=== PATIENT | male | born 1985 | race Caucasian/White ===

== ENCOUNTER 2017-06-19 22:51 | Emergency (ER) | payer MEDICAID ==
[~2017-06-19] VITALS: Ht 165.1 cm; Wt 71.0 kg
[~2017-06-19 22:51] MED LIST: CARBATROL PO; CHOL100044 PO; MULT-1116 PO; PHEN60TA PO; PHENOBARBITAL PO; SENN1TAB7 PO; THIORIDAZINE PO
[2017-06-19] MEDS ORDERED: ONDANSETRON HCL 4MG/2ML VIAL IV STA (23:17)
[2017-06-19] MEDS ORDERED: SODIUM CHLORIDE 0.9% 1,000 ML IV ONE (23:17)
[2017-06-19] MEDS ORDERED: LORAZEPAM 2MG/ML CPJ IV ONE (23:30)
[2017-06-19 23:44] LABS: BASOPHILS % 0.2 % (0.0-2.0); EOSINOPHILS % 3.5 % (0.0-5.0); HEMATOCRIT. 40.2 % (42.0-52.0); HEMOGLOBIN. 13.9 g/dL (14.0-18.0); LYMPHOCYTES % 34.5 % (20.0-50.0); MEAN CORPUSCULAR HEMOGLOBIN 31.4 pg (28.0-32.0); MEAN CORPUSCULAR VOLUME 90.6 fL (80.0-94.0); MEAN PLATELET VOLUME 7.9 fl (7.4-10.4); MONOCYTES % 4.6 % (2.0-8.0); NEUTROPHILS % 57.2 % (40.0-76.0); PLATELET 166 x1000/uL (130-400); RED BLOOD CELL COUNT 4.43 mill/uL (4.7-6.1); RED CELL DISTRIBUTION WIDTH 12.7 % (11.6-14.6)
[2017-06-19 23:47] LABS: CHLORIDE 106 mEq/L (98-107)
[2017-06-19 23:56] LABS: PHENOBARBITAL 22.4 ug/mL (15.0-40.0)
[2017-06-20] MEDS ORDERED: PHENYTOIN SODIUM 500 MG in SODIUM CHLORIDE 0.9% 50 ML IV NR (01:30)
[2017-06-20 05:06] VITALS: BP 116/76
== END 2017-06-20 05:19 | disposition home or self-care (01) ==
LOC: ER 22:55
DX: R56.9 Unspecified convulsions (principal); F79 Unspecified intellectual disabilities
CPT/HCPCS: 36415; 80053; 80156; 80165; 80184; 80185; 85025; 96361; 96365; 96375; 99285; J1165; J2060; J2405; J7030; Z7610

== ENCOUNTER 2018-08-07 22:49 | Inpatient (IN) | payer MEDICAID ==
[~2018-08-07] VITALS: Ht 167.6 cm; Wt 65.8 kg
[~2018-08-07 22:49] MED LIST changes: -SENN1TAB7 PO; +SENN1TAB8 PO
[2018-08-08 00:32] LABS: CLARITY URINE CLEAR (CLEAR); COLOR URINE YELLOW (YELLOW); KETONES URINE TRACE (NEGATIVE); LEUKOCYTE ESTERASE URINE NEGATIVE (NEGATIVE); NITRITE URINE NEGATIVE (NEGATIVE); OCCULT BLOOD URINE NEGATIVE (NEGATIVE); PH URINE 5.5 (4.5-8.0); PROTEIN URINE NEGATIVE (NEGATIVE)
[2018-08-08 00:43] LABS: *COCAINE SCREEN URINE NEGATIVE (NEGATIVE); METHADONE URINE SCREEN NEGATIVE (NEGATIVE); OPIATES URINE SCREEN NEGATIVE (NEGATIVE)
[2018-08-08 00:44] LABS: *AMPHETAMINES SCREEN URINE NEGATIVE (NEGATIVE); *BARBITURATES SCREEN URINE PRESUMTIVE POSITIVE (NEGATIVE); *BENZODIAZEPINES SCREEN URINE NEGATIVE (NEGATIVE); CANNABINOID URINE SCREEN NEGATIVE (NEGATIVE); PHENCYCLIDINE URINE SCREEN NEGATIVE (NEGATIVE)
[2018-08-08 00:55] LABS: HEMATOCRIT. 33.7 % (42.0-52.0); HEMOGLOBIN. 11.5 g/dL (14.0-18.0); MEAN CORPUSCULAR HEMOGLOBIN 31.9 pg (28.0-32.0); MEAN CORPUSCULAR VOLUME 93.3 fL (80.0-94.0); MEAN PLATELET VOLUME 8.4 fl (7.4-10.4); PLATELET 135 x1000/uL (130-400); RED BLOOD CELL COUNT 3.61 mill/uL (4.7-6.1); RED CELL DISTRIBUTION WIDTH 14.5 % (11.6-14.6)
[2018-08-08 01:00] LABS: CHLORIDE 109 mEq/L (98-107)
[2018-08-08 01:04] LABS: ETHANOL BLOOD < 10 mg/dL
[2018-08-08 01:08] LABS: PHENOBARBITAL 19.8 ug/mL (15.0-40.0)
[2018-08-08 02:39] LABS: PLATELET ESTIMATE NORMAL
[2018-08-08] MEDS ORDERED: LORAZEPAM 2MG/ML CPJ IM ONE (04:15)
[2018-08-08] MEDS ORDERED: PHENOBARBITAL SODIUM 65MG/ML 1ML IV ONE (05:00)
[2018-08-08 09:42] VITALS: BP 103/52
[2018-08-08 09:45] VITALS: BP 103/52
[2018-08-08] MEDS ORDERED: LORAZEPAM 2MG/ML CPJ IV PRN (11:30)
[2018-08-08] MEDS ORDERED: ACETAMINOPHEN 325MG TABLET PO PRN (11:30)
[2018-08-08] MEDS ORDERED: ONDANSETRON HCL 4MG/2ML INJ IV PRN (11:30)
[2018-08-08] MEDS: MULTIVITAMINS,THER W-MINERALS TABLET PO SCH (11:45)
[2018-08-08] MEDS: CHOLECALCIFEROL (D3) 1000 UNIT TABLET PO SCH (11:45)
[2018-08-08] MEDS: SENNOSIDES/DOCUSATE SOD 8.6/50MG TABLET PO SCH (11:45)
[2018-08-08 12:00] VITALS: BP 93/49
[2018-08-08] MEDS: CARBAMAZEPINE 100MG TABLET CHEW PO SCH ×2 (13:00→18:36)
[2018-08-08] MEDS: DEXT 5%/0.45% NACL 1000ML 1,000 ML IV SCH (13:51)
[2018-08-08 16:00] VITALS: BP 93/52
[2018-08-08] MEDS: ENOXAPARIN 40MG/0.4ML SYR SUBCUT SCH (16:00)
[2018-08-08] MEDS: THIORIDAZINE 25 MG PO SCH ×2 (18:38→21:14)
[2018-08-08 20:00] VITALS: BP 100/48
[2018-08-08] MEDS ORDERED: PHENOBARBITAL 30 MG TABLET PO SCH (21:00)
[2018-08-09] VITALS: BP 100/42
[2018-08-09 04:00] VITALS: BP 99/47
[2018-08-09 08:00] VITALS: BP 102/84
[2018-08-09] MEDS ORDERED: PHENOBARBITAL 30 MG TABLET PO SCH (09:00)
[2018-08-09 09:18] LABS: BASOPHILS % 0.1 % (0.0-2.0); EOSINOPHILS % 1.6 % (0.0-5.0); HEMOGLOBIN. 11.2 g/dL (14.0-18.0); LYMPHOCYTES % 21.2 % (20.0-50.0); MEAN CORPUSCULAR HEMOGLOBIN 31.7 pg (28.0-32.0); MEAN CORPUSCULAR VOLUME 93.5 fL (80.0-94.0); MEAN PLATELET VOLUME 8.6 fl (7.4-10.4); MONOCYTES % 5.9 % (2.0-8.0); NEUTROPHILS % 71.2 % (40.0-76.0); PLATELET 124 x1000/uL (130-400); RED BLOOD CELL COUNT 3.53 mill/uL (4.7-6.1); RED CELL DISTRIBUTION WIDTH 14.5 % (11.6-14.6)
[2018-08-09 10:01] LABS: CHLORIDE 106 mEq/L (98-107)
[2018-08-09] MEDS: DEXT 5%/0.45% NACL 1000ML 1,000 ML IV SCH (10:32)
[2018-08-09] MEDS: CARBAMAZEPINE 100MG TABLET CHEW PO SCH (10:35)
[2018-08-09] MEDS: THIORIDAZINE 25 MG PO SCH ×3 (10:35→17:07)
[2018-08-09] MEDS: CHOLECALCIFEROL (D3) 1000 UNIT TABLET PO SCH (10:35)
[2018-08-09] MEDS: SENNOSIDES/DOCUSATE SOD 8.6/50MG TABLET PO SCH (10:35)
[2018-08-09] MEDS: MULTIVITAMINS,THER W-MINERALS TABLET PO SCH (10:38)
[2018-08-09 12:00] VITALS: BP 132/65
[2018-08-09] MEDS ORDERED: POTASSIUM CHLORIDE 20MEQ TABLET SR PO SCH (15:15)
[2018-08-09 16:00] VITALS: BP 105/60
[2018-08-09] MEDS: ENOXAPARIN 40MG/0.4ML SYR SUBCUT SCH (16:00)
[2018-08-09 16:34] VITALS: BP 105/60
[2018-08-09] MEDS ORDERED: CARBAMAZEPINE 100MG TABLET CHEW PO SCH (17:00)
== END 2018-08-09 19:12 | disposition home or self-care (01) | DRG 53 ==
LOC: ER 22:49 → 8WST 08-08 04:49 → ENRESERV 08-08 08:09
PROVIDERS: ADMIT Internal Medicine; ATTEND Internal Medicine
DX: G40.909 Epilepsy, unspecified, not intractable, without status epilepticus (principal); Q04.2 Holoprosencephaly; E44.0 Moderate protein-calorie malnutrition; E87.8 Other disorders of electrolyte and fluid balance, not elsewhere classified; G80.9 Cerebral palsy, unspecified; D64.9 Anemia, unspecified; F79 Unspecified intellectual disabilities; H54.7 Unspecified visual loss; Z91.14 Patient's other noncompliance with medication regimen; Z68.23 Body mass index [BMI] 23.0-23.9, adult; Z79.899 Other long term (current) drug therapy
CPT/HCPCS: 36415; 80048; 80184; 80305; 80320; 93970; 96374; 99285; J1650; J2060; J2560; G0480

== ENCOUNTER 2019-03-04 10:44 | Inpatient (IN) | payer MEDICAID ==
[~2019-03-04] VITALS: Ht 172.7 cm; Wt 60.8 kg
[~2019-03-04 10:44] MED LIST changes: +CARB100T49 PO; -CARBATROL PO; -CHOL100044 PO; +FOLI-43 PO; -MULT-1116 PO; +PHEN30TA42 PO; -PHENOBARBITAL PO; -SENN1TAB8 PO; +THIO25TA PO; -THIORIDAZINE PO
[2019-03-04] MEDS ORDERED: SODIUM CHLORIDE 0.9% 1,000 ML IV ONE (11:44)
[2019-03-04] MEDS ORDERED: PIPERACILLIN/TAZ 3.375G PREMIX 50 ML IV ONE (12:15)
[2019-03-04] MEDS ORDERED: SODIUM CHLORIDE 0.9% 1000ML BAG (SEPSIS BOLUS) IV ONE (12:15)
[2019-03-04] MEDS ORDERED: LEVOFLOXACIN 500MG PREMIX 100 ML IV ONE (12:15)
[2019-03-04 12:51] LABS: BASOPHILS % 0.3 % (0.0-2.0); EOSINOPHILS % 5.8 % (0.0-5.0); HEMATOCRIT. 30.5 % (42.0-52.0); HEMOGLOBIN. 10.2 g/dL (14.0-18.0); LYMPHOCYTES % 21.8 % (20.0-50.0); MEAN CORPUSCULAR HEMOGLOBIN 32.7 pg (28.0-32.0); MEAN CORPUSCULAR VOLUME 97.4 fL (80.0-94.0); MEAN PLATELET VOLUME 7.7 fl (7.4-10.4); NEUTROPHILS % 63.1 % (40.0-76.0); PLATELET 322 x1000/uL (130-400); RED BLOOD CELL COUNT 3.13 mill/uL (4.7-6.1); RED CELL DISTRIBUTION WIDTH 15.5 % (11.6-14.6)
[2019-03-04 12:52] LABS: CHLORIDE 104 mEq/L (98-107)
[2019-03-04 13:02] LABS: CARBAMAZEPINE 6.9 ug/mL (4-12)
[2019-03-04 13:03] LABS: PHENOBARBITAL 2.7 ug/mL (15.0-40.0)
[2019-03-04] MEDS ORDERED: PHENOBARBITAL SODIUM 65MG/ML 1ML IV ONE (14:00)
[2019-03-04] MEDS ORDERED: MAGNESIUM/ALUMINUM HYDROXIDE/SIMETHICONE 30ML UDC PO PRN (16:30)
[2019-03-04] MEDS ORDERED: DIPHENHYDRAMINE 50MG/ML VIAL IV PRN (16:30)
[2019-03-04] MEDS ORDERED: HYDRALAZINE 20MG/ML VIAL IV PRN (16:30)
[2019-03-04] MEDS ORDERED: DOCUSATE SODIUM 100MG CAPSULE PO PRN (16:30)
[2019-03-04] MEDS ORDERED: HYDROCODONE/ACETAMINOPHEN 10/325MG TABLET PO PRN (16:30)
[2019-03-04] MEDS ORDERED: ACETAMINOPHEN 325MG TABLET PO PRN (16:30)
[2019-03-04] MEDS ORDERED: ONDANSETRON HCL 4MG/2ML INJ IV PRN (16:30)
[2019-03-04] MEDS ORDERED: DEXTROSE 50% WATER 50ML SYRINGE IV PRN (16:30)
[2019-03-04] MEDS ORDERED: CLONIDINE 0.1MG TABLET PO PRN (16:30)
[2019-03-04] MEDS ORDERED: NA PHOS,M-B/NA PHOS,DI-BA ENEMA 118ML PR PRN (16:30)
[2019-03-04] MEDS ORDERED: IPRATROPIUM/ALBUTEROL 0.5-3(2.5)MG/3ML NEB HHN PRN (16:30)
[2019-03-04] MEDS ORDERED: VANCOMYCIN 1 G PREMIX 200 ML IV SCH (16:30)
[2019-03-04] MEDS ORDERED: MORPHINE SULFATE 2 MG/ML CPJ (NOT FOR IM USE) IV PRN (16:30)
[2019-03-04] MEDS ORDERED: GUAIFENESIN 200MG/10ML SUGAR FREE UDC PO PRN (16:30)
[2019-03-04] MEDS ORDERED: LORAZEPAM 2MG/ML CPJ IV PRN (16:30)
[2019-03-04] MEDS: LEVETIRACETAM 500MG/5ML CUP PO SCH (21:00)
[2019-03-04] MEDS ORDERED: CARBAMAZEPINE 200MG TABLET PO SCH (21:00)
[2019-03-04 23:30] VITALS: BP 104/61
[2019-03-05] MEDS ORDERED: HYDRALAZINE 10 MG in DEXTROSE 5% WATER 50 ML IV PRN (02:00)
[2019-03-05] MEDS ORDERED: VANCOMYCIN 1 G PREMIX 200 ML IV SCH (02:00)
[2019-03-05 03:15] VITALS: BP 103/65
[2019-03-05] MEDS: PIPERACILLIN/TAZOBACTAM 3.375 G in DEXT 5% WATER 100 ML IV SCH ×3 (03:57→22:46)
[2019-03-05 08:00] VITALS: BP 112/72
[2019-03-05 08:08] LABS: CHLORIDE 103 mEq/L (98-107)
[2019-03-05] MEDS: SODIUM CHLORIDE 0.9% INJ 3ML FLUSH IVF SCH ×3 (09:11→22:00)
[2019-03-05] MEDS: ENOXAPARIN 40MG/0.4ML SYR SUBCUT SCH (09:11)
[2019-03-05] MEDS ORDERED: HYDRALAZINE 20MG/ML VIAL IV PRN ×2 (09:15)
[2019-03-05] MEDS ORDERED: DOCUSATE SODIUM SUGAR FREE 100MG/10ML UDC GT PRN (09:15)
[2019-03-05] MEDS: LEVETIRACETAM 500MG/5ML CUP PO SCH ×2 (11:06→22:46)
[2019-03-05] MEDS: CARBAMAZEPINE 100MG TABLET CHEW GT SCH ×2 (11:06→22:46)
[2019-03-05 12:00] VITALS: BP 104/60
[2019-03-05 14:21] LABS: BASOPHILS % 0.2 % (0.0-2.0); EOSINOPHILS % 4.3 % (0.0-5.0); HEMATOCRIT. 32.2 % (42.0-52.0); HEMOGLOBIN. 10.7 g/dL (14.0-18.0); LYMPHOCYTES % 29.8 % (20.0-50.0); MEAN CORPUSCULAR HEMOGLOBIN 32.5 pg (28.0-32.0); MEAN CORPUSCULAR VOLUME 97.7 fL (80.0-94.0); MEAN PLATELET VOLUME 8.5 fl (7.4-10.4); MONOCYTES % 11.2 % (2.0-8.0); NEUTROPHILS % 54.5 % (40.0-76.0); PLATELET 305 x1000/uL (130-400); RED BLOOD CELL COUNT 3.29 mill/uL (4.7-6.1); RED CELL DISTRIBUTION WIDTH 15.5 % (11.6-14.6)
[2019-03-05] MEDS: VANCOMYCIN 1250MG in DEXTROSE 5% WATER 250ML IV SCH (15:27)
[2019-03-05 16:00] VITALS: BP 109/60
[2019-03-05 20:00] VITALS: BP_SYST 102; BP_SYST 110; BP_DIAS 60; BP_DIAS 65
[2019-03-06] MEDS: VANCOMYCIN 1250MG in DEXTROSE 5% WATER 250ML IV SCH (01:59)
[2019-03-06 04:00] VITALS: BP 101/65
[2019-03-06 04:25] LABS: BASOPHILS % 0.4 % (0.0-2.0); EOSINOPHILS % 2.2 % (0.0-5.0); HEMATOCRIT. 31.4 % (42.0-52.0); HEMOGLOBIN. 10.6 g/dL (14.0-18.0); LYMPHOCYTES % 14.2 % (20.0-50.0); MEAN CORPUSCULAR HEMOGLOBIN 32.4 pg (28.0-32.0); MEAN CORPUSCULAR VOLUME 95.8 fL (80.0-94.0); MEAN PLATELET VOLUME 7.4 fl (7.4-10.4); MONOCYTES % 12.7 % (2.0-8.0); NEUTROPHILS % 70.5 % (40.0-76.0); PLATELET 339 x1000/uL (130-400); RED BLOOD CELL COUNT 3.27 mill/uL (4.7-6.1); RED CELL DISTRIBUTION WIDTH 15.2 % (11.6-14.6)
[2019-03-06 04:28] LABS: CHLORIDE 103 mEq/L (98-107)
[2019-03-06 08:00] VITALS: BP 115/55
[2019-03-06] MEDS: LEVETIRACETAM 500MG/5ML CUP PO SCH ×2 (08:51→21:37)
[2019-03-06] MEDS: SODIUM CHLORIDE 0.9% INJ 3ML FLUSH IVF SCH ×3 (08:51→21:37)
[2019-03-06] MEDS: CARBAMAZEPINE 100MG TABLET CHEW GT SCH ×2 (08:51→21:37)
[2019-03-06] MEDS: ENOXAPARIN 40MG/0.4ML SYR SUBCUT SCH (08:52)
[2019-03-06 12:00] VITALS: BP 94/45
[2019-03-06 16:00] VITALS: BP 101/48
[2019-03-06 20:00] VITALS: BP 101/57
[2019-03-06] MEDS: PIPERACILLIN/TAZOBACTAM 3.375 G in DEXT 5% WATER 100 ML IV SCH (21:37)
[2019-03-07] VITALS: BP 102/60
[2019-03-07 04:00] VITALS: BP 107/66
[2019-03-07] MEDS: SODIUM CHLORIDE 0.9% INJ 3ML FLUSH IVF SCH ×3 (05:42→21:06)
[2019-03-07] MEDS: PIPERACILLIN/TAZOBACTAM 3.375 G in DEXT 5% WATER 100 ML IV SCH ×3 (05:42→21:05)
[2019-03-07 06:25] LABS: BASOPHILS % 0.1 % (0.0-2.0); EOSINOPHILS % 0.8 % (0.0-5.0); HEMATOCRIT. 30.2 % (42.0-52.0); HEMOGLOBIN. 10.3 g/dL (14.0-18.0); LYMPHOCYTES % 9.8 % (20.0-50.0); MEAN CORPUSCULAR HEMOGLOBIN 32.8 pg (28.0-32.0); MEAN CORPUSCULAR VOLUME 96.5 fL (80.0-94.0); MONOCYTES % 14.9 % (2.0-8.0); NEUTROPHILS % 74.4 % (40.0-76.0); PLATELET 307 x1000/uL (130-400); RED BLOOD CELL COUNT 3.13 mill/uL (4.7-6.1); RED CELL DISTRIBUTION WIDTH 15.5 % (11.6-14.6)
[2019-03-07 08:00] VITALS: BP 114/62
[2019-03-07] MEDS: CARBAMAZEPINE 100MG TABLET CHEW GT SCH ×2 (09:25→21:05)
[2019-03-07] MEDS: LEVETIRACETAM 500MG/5ML CUP PO SCH ×2 (09:25→21:05)
[2019-03-07] MEDS: ENOXAPARIN 40MG/0.4ML SYR SUBCUT SCH (09:25)
[2019-03-07 12:00] VITALS: BP 103/57
[2019-03-07 16:00] VITALS: BP 103/60
[2019-03-07 20:00] VITALS: BP 112/60
[2019-03-08] VITALS: BP 99/53
[2019-03-08 04:00] VITALS: BP 110/59
[2019-03-08] MEDS: PIPERACILLIN/TAZOBACTAM 3.375 G in DEXT 5% WATER 100 ML IV SCH (05:18)
[2019-03-08] MEDS: SODIUM CHLORIDE 0.9% INJ 3ML FLUSH IVF SCH ×2 (05:18→13:14)
[2019-03-08 08:00] VITALS: BP 111/56
[2019-03-08] MEDS: CARBAMAZEPINE 100MG TABLET CHEW GT SCH ×2 (09:20→22:02)
[2019-03-08] MEDS: LEVETIRACETAM 500MG/5ML CUP PO SCH (09:20)
[2019-03-08] MEDS: ENOXAPARIN 40MG/0.4ML SYR SUBCUT SCH (09:20)
[2019-03-08 11:03] LABS: CREATINE KINASE 32 IU/L (39-308)
[2019-03-08 12:00] VITALS: BP 103/69
[2019-03-08] MEDS: PIPERACILLIN/TAZOBACTAM 2.25 G in DEXTROSE 5% WATER 50 ML IV SCH ×2 (13:14→22:18)
[2019-03-08 16:00] VITALS: BP 99/58
[2019-03-08] MEDS: ACETAMINOPHEN 650MG/20.3ML UDC GT PRN (16:09)
[2019-03-08 20:00] VITALS: BP 102/53
[2019-03-09] VITALS: BP 104/62
[2019-03-09 04:00] VITALS: BP 109/68
[2019-03-09] MEDS: PIPERACILLIN/TAZOBACTAM 2.25 G in DEXTROSE 5% WATER 50 ML IV SCH ×3 (06:01→21:36)
[2019-03-09 08:00] VITALS: BP 105/62
[2019-03-09] MEDS: ENOXAPARIN 40MG/0.4ML SYR SUBCUT SCH (09:33)
[2019-03-09] MEDS: CARBAMAZEPINE 100MG TABLET CHEW GT SCH ×2 (09:33→21:31)
[2019-03-09] MEDS: SODIUM CHLORIDE 0.45% 1,000 ML IV SCH (10:57)
[2019-03-09 12:00] VITALS: BP 112/65
[2019-03-09 13:07] LABS: BASOPHILS % 0.3 % (0.0-2.0); EOSINOPHILS % 2.1 % (0.0-5.0); HEMATOCRIT. 27.6 % (42.0-52.0); HEMOGLOBIN. 9.2 g/dL (14.0-18.0); LYMPHOCYTES % 13.2 % (20.0-50.0); MEAN CORPUSCULAR HEMOGLOBIN 32.1 pg (28.0-32.0); MEAN CORPUSCULAR VOLUME 96.7 fL (80.0-94.0); MEAN PLATELET VOLUME 7.5 fl (7.4-10.4); MONOCYTES % 10.5 % (2.0-8.0); NEUTROPHILS % 73.9 % (40.0-76.0); PLATELET 275 x1000/uL (130-400); RED BLOOD CELL COUNT 2.86 mill/uL (4.7-6.1); RED CELL DISTRIBUTION WIDTH 15.5 % (11.6-14.6)
[2019-03-09] MEDS: SODIUM CHLORIDE 0.9% INJ 3ML FLUSH IVF SCH ×2 (13:30→21:31)
[2019-03-09 16:00] VITALS: BP 118/64
[2019-03-09 20:00] VITALS: BP 107/66
[2019-03-10] VITALS: BP 112/66
[2019-03-10 04:00] VITALS: BP 99/58
[2019-03-10] MEDS: PIPERACILLIN/TAZOBACTAM 2.25 G in DEXTROSE 5% WATER 50 ML IV SCH ×3 (04:45→20:10)
[2019-03-10] MEDS: SODIUM CHLORIDE 0.9% INJ 3ML FLUSH IVF SCH ×3 (05:09→23:52)
[2019-03-10] MEDS: SODIUM CHLORIDE 0.45% 1,000 ML IV SCH ×2 (05:14→13:59)
[2019-03-10 07:31] LABS: BASOPHILS % 0.3 % (0.0-2.0); EOSINOPHILS % 3.3 % (0.0-5.0); HEMOGLOBIN. 9.2 g/dL (14.0-18.0); LYMPHOCYTES % 12.9 % (20.0-50.0); MEAN CORPUSCULAR VOLUME 96.9 fL (80.0-94.0); MEAN PLATELET VOLUME 8.4 fl (7.4-10.4); MONOCYTES % 10.8 % (2.0-8.0); NEUTROPHILS % 72.7 % (40.0-76.0); PLATELET 261 x1000/uL (130-400); RED BLOOD CELL COUNT 2.88 mill/uL (4.7-6.1); RED CELL DISTRIBUTION WIDTH 15.3 % (11.6-14.6)
[2019-03-10 08:00] VITALS: BP 110/68
[2019-03-10] MEDS: CARBAMAZEPINE 100MG TABLET CHEW GT SCH ×2 (09:56→20:10)
[2019-03-10] MEDS: ENOXAPARIN 40MG/0.4ML SYR SUBCUT SCH (09:57)
[2019-03-10 12:00] VITALS: BP 98/54
[2019-03-10 16:00] VITALS: BP 92/50
[2019-03-10 20:00] VITALS: BP 108/61
[2019-03-11] VITALS: BP 109/61
[2019-03-11 04:00] VITALS: BP 101/59
[2019-03-11] MEDS: PIPERACILLIN/TAZOBACTAM 2.25 G in DEXTROSE 5% WATER 50 ML IV SCH ×3 (05:13→20:38)
[2019-03-11] MEDS: SODIUM CHLORIDE 0.9% INJ 3ML FLUSH IVF SCH ×3 (05:14→20:38)
[2019-03-11 08:00] VITALS: BP 110/64
[2019-03-11] MEDS: ENOXAPARIN 40MG/0.4ML SYR SUBCUT SCH (08:16)
[2019-03-11] MEDS: CARBAMAZEPINE 100MG TABLET CHEW GT SCH ×2 (08:16→20:37)
[2019-03-11 11:17] LABS: BASOPHILS % 0.4 % (0.0-2.0); EOSINOPHILS % 5.1 % (0.0-5.0); HEMATOCRIT. 27.6 % (42.0-52.0); HEMOGLOBIN. 9.1 g/dL (14.0-18.0); LYMPHOCYTES % 20.5 % (20.0-50.0); MEAN CORPUSCULAR HEMOGLOBIN 32.2 pg (28.0-32.0); MONOCYTES % 9.8 % (2.0-8.0); NEUTROPHILS % 64.2 % (40.0-76.0); PLATELET 242 x1000/uL (130-400); RED BLOOD CELL COUNT 2.84 mill/uL (4.7-6.1); RED CELL DISTRIBUTION WIDTH 15.2 % (11.6-14.6)
[2019-03-11 12:00] VITALS: BP 111/67
[2019-03-11 16:00] VITALS: BP 103/69
[2019-03-11] MEDS: SODIUM CHLORIDE 0.45% 1,000 ML IV SCH (17:06)
[2019-03-11 20:00] VITALS: BP 109/70
[2019-03-12] VITALS: BP 95/61
[2019-03-12 04:00] VITALS: BP 113/70
[2019-03-12] MEDS: SODIUM CHLORIDE 0.9% INJ 3ML FLUSH IVF SCH ×2 (06:14→13:38)
[2019-03-12] MEDS: SODIUM CHLORIDE 0.45% 1,000 ML IV SCH (06:15)
[2019-03-12] MEDS: PIPERACILLIN/TAZOBACTAM 2.25 G in DEXTROSE 5% WATER 50 ML IV SCH ×2 (06:15→13:37)
[2019-03-12 06:50] LABS: BASOPHILS % 0.4 % (0.0-2.0); EOSINOPHILS % 4.3 % (0.0-5.0); HEMATOCRIT. 28.3 % (42.0-52.0); HEMOGLOBIN. 9.4 g/dL (14.0-18.0); LYMPHOCYTES % 16.8 % (20.0-50.0); MEAN CORPUSCULAR VOLUME 96.2 fL (80.0-94.0); MEAN PLATELET VOLUME 8.5 fl (7.4-10.4); MONOCYTES % 10.4 % (2.0-8.0); NEUTROPHILS % 68.1 % (40.0-76.0); PLATELET 265 x1000/uL (130-400); RED BLOOD CELL COUNT 2.94 mill/uL (4.7-6.1); RED CELL DISTRIBUTION WIDTH 15.1 % (11.6-14.6)
[2019-03-12 08:00] VITALS: BP 118/71
[2019-03-12] MEDS: CARBAMAZEPINE 100MG TABLET CHEW GT SCH (08:23)
[2019-03-12] MEDS: ENOXAPARIN 40MG/0.4ML SYR SUBCUT SCH (08:23)
[2019-03-12 12:00] VITALS: BP 106/68
[2019-03-12 16:00] VITALS: BP 112/67
[2019-03-12] MEDS: ACETAMINOPHEN 650MG/20.3ML UDC GT PRN (16:28)
[2019-03-12 17:04] VITALS: BP 112/67
== END 2019-03-12 18:36 | disposition home health service (06) | DRG 139 ==
LOC: ER 10:44 → EDBEDREQTM 13:50 → EDBEDREQ 13:50 → ENRESERV 21:52 → 6EST 23:20 → 5WST 03-05 03:07
PROVIDERS: ADMIT Internal Medicine; ATTEND Internal Medicine
DX: J18.9 Pneumonia, unspecified organism (principal); N17.9 Acute kidney failure, unspecified; E46 Unspecified protein-calorie malnutrition; G80.9 Cerebral palsy, unspecified; R32 Unspecified urinary incontinence; R62.7 Adult failure to thrive; D64.9 Anemia, unspecified; G40.909 Epilepsy, unspecified, not intractable, without status epilepticus; R13.10 Dysphagia, unspecified; T50.995A Adverse effect of other drugs, medicaments and biological substances, initial encounter; Y92.238 Other place in hospital as the place of occurrence of the external cause; Z87.440 Personal history of urinary (tract) infections; Z68.20 Body mass index [BMI] 20.0-20.9, adult; Z93.1 Gastrostomy status
CPT/HCPCS: 36415; 71045; 76770; 80048; 80156; 80184; 80202; 82550; 83605; 93005; 96365; 96366; 96367; 96368; 96375; 99285; J0360; J1200; J1650; J1956; J2543; J2560; J3370; J7030; J7060; A4315

== ENCOUNTER 2019-08-12 18:13 | Inpatient (IN) | payer MEDICAID ==
[~2019-08-12] VITALS: Ht 160 cm; Wt 49.0 kg
[~2019-08-12 18:13] MED LIST changes: -CARB100T49 PO
[2019-08-12] MEDS ORDERED: SODIUM CHLORIDE 0.9% 1,000 ML IV ONE ×2 (18:24→18:57)
[2019-08-12] MEDS ORDERED: LEVETIRACETAM 1000MG/100ML 100 ML IV ONE (18:30)
[2019-08-12] MEDS ORDERED: ETOMIDATE 2MG/ML 10ML VIAL IV ONE (18:41)
[2019-08-12] MEDS ORDERED: SUCCINYLCHOLINE CHLORIDE 200MG/10ML IV ONE (18:41)
[2019-08-12] MEDS ORDERED: LORAZEPAM 2MG/ML CPJ ONE (18:57)
[2019-08-12 18:58] LABS: CHLORIDE 106 mEq/L (98-107)
[2019-08-12] MEDS ORDERED: FENTANYL CITRATE/PF 1,000 MCG in SODIUM CHLORIDE 0.9% 80 ML IV PRN (19:00)
[2019-08-12] MEDS ORDERED: CEFTRIAXONE 1 G PREMIX 50 ML IV ONE (19:00)
[2019-08-12] MEDS ORDERED: LORAZEPAM 2MG/ML CPJ IV ONE (19:00)
[2019-08-12] MEDS ORDERED: MIDAZOLAM HCL 50 MG in DEXTROSE 5% WATER 40 ML IV ONE (19:00)
[2019-08-12 19:01] LABS: EOSINOPHILS % 0.3 % (0.0-5.0); HEMATOCRIT. 29.2 % (42.0-52.0); HEMOGLOBIN. 9.8 g/dL (14.0-18.0); MEAN CORPUSCULAR HEMOGLOBIN 32.1 pg (28.0-32.0); MEAN CORPUSCULAR VOLUME 95.7 fL (80.0-94.0); MEAN PLATELET VOLUME 8.3 fl (7.4-10.4); MONOCYTES % 6.1 % (2.0-8.0); NEUTROPHILS % 79.6 % (40.0-76.0); PLATELET 173 x1000/uL (130-400); RED BLOOD CELL COUNT 3.05 mill/uL (4.7-6.1); RED CELL DISTRIBUTION WIDTH 15.2 % (11.6-14.6)
[2019-08-12 19:02] LABS: ETHANOL BLOOD < 10 mg/dL
[2019-08-12 19:21] LABS: CLARITY URINE CLEAR (CLEAR); COLOR URINE YELLOW (YELLOW); KETONES URINE NEGATIVE (NEGATIVE); LEUKOCYTE ESTERASE URINE NEGATIVE (NEGATIVE); NITRITE URINE NEGATIVE (NEGATIVE); OCCULT BLOOD URINE NEGATIVE (NEGATIVE); PROTEIN URINE NEGATIVE (NEGATIVE); SPECIFIC GRAVITY URINE 1.017 (1.005-1.030); UROBILINOGEN URINE 0.2 E.U./dL (0.2-1.0)
[2019-08-12] MEDS ORDERED: FENTANYL 1,000 MCG in SODIUM CHLORIDE 0.9% 100 ML IV PRN (19:30)
[2019-08-12] MEDS ORDERED: MIDAZOLAM HCL 50 MG in DEXTROSE 5% WATER 40 ML IV PRN (19:30)
[2019-08-12 19:49] LABS: *AMPHETAMINES SCREEN URINE NEGATIVE (NEGATIVE); *BARBITURATES SCREEN URINE PRESUMTIVE POSITIVE (NEGATIVE); *BENZODIAZEPINES SCREEN URINE NEGATIVE (NEGATIVE); *COCAINE SCREEN URINE NEGATIVE (NEGATIVE); METHADONE URINE SCREEN NEGATIVE (NEGATIVE); OPIATES URINE SCREEN NEGATIVE (NEGATIVE)
[2019-08-12 19:51] LABS: CANNABINOID URINE SCREEN NEGATIVE (NEGATIVE); PHENCYCLIDINE URINE SCREEN NEGATIVE (NEGATIVE)
[2019-08-12] MEDS ORDERED: NA PHOS,M-B/NA PHOS,DI-BA ENEMA 118ML PR PRN (21:45)
[2019-08-12] MEDS ORDERED: LORAZEPAM 2MG/ML CPJ IV PRN (21:45)
[2019-08-12] MEDS ORDERED: GUAIFENESIN 200MG/10ML SUGAR FREE UDC PO PRN (21:45)
[2019-08-12] MEDS ORDERED: IPRATROPIUM/ALBUTEROL 0.5-3(2.5)MG/3ML NEB NEB PRN (21:45)
[2019-08-12] MEDS ORDERED: CLONIDINE 0.1MG TABLET PO PRN (21:45)
[2019-08-12] MEDS ORDERED: ONDANSETRON HCL 4MG/2ML INJ IV PRN (21:45)
[2019-08-12] MEDS ORDERED: ENOXAPARIN 40MG/0.4ML SYR SUBCUT SCH (21:45)
[2019-08-12] MEDS ORDERED: MAGNESIUM/ALUMINUM HYDROXIDE/SIMETHICONE 30ML UDC PO PRN (21:45)
[2019-08-12 21:48] LABS: BG BASE EXCESS -1.8 mmol/L (-2.0-2.0); BG CARBOXYHEMOGLOBIN 0.3 % (0.5-1.5); BG FRACTION INSPIRED OXYGEN 100; BG HCO3 ACT 23.4 mmol/L (22.0-26.0); BG METHEMOGLOBIN 0.4 % (0.0-1.5); BG OXYHEMOGLOBIN 98.3 % (94.0-97.0); BG PCO2 41.5 mmHg (35.0-45.0); BG PH 7.369 (7.350-7.450); BG PIP 34 cmH2O; BG PO2 307.6 mmHg (75.0-100.0); BG SAMPLE SITE RIGHT RADIAL; BG TIDAL VOLUME(mL) 450 mL; BG TOTAL HEMOGLOBIN 8.9 g/dL (12.0-18.0); BG VENT MODE VENT - A/C; BG VENT RATE 16 set
[2019-08-12] MEDS ORDERED: AZITHROMYCIN 500 MG in DEXT 5% WATER 250 ML IV SCH (22:00)
[2019-08-12 23:40] LABS: CHLORIDE 111 mEq/L (98-107)
[2019-08-13] MEDS: DEXT 5%/0.45% NACL 1000ML 1,000 ML IV SCH ×3 (00:19→12:32)
[2019-08-13 05:28] LABS: HEMATOCRIT. 24.8 % (42.0-52.0); HEMOGLOBIN. 8.4 g/dL (14.0-18.0); MEAN CORPUSCULAR HEMOGLOBIN 31.8 pg (28.0-32.0); MEAN CORPUSCULAR VOLUME 94.6 fL (80.0-94.0); MEAN PLATELET VOLUME 8.4 fl (7.4-10.4); PLATELET 144 x1000/uL (130-400); RED BLOOD CELL COUNT 2.62 mill/uL (4.7-6.1); RED CELL DISTRIBUTION WIDTH 14.8 % (11.6-14.6)
[2019-08-13 05:31] LABS: CHLORIDE 109 mEq/L (98-107)
[2019-08-13 05:43] LABS: HDL CHOLESTEROL 53 mg/dL (40-59); LDL CHOLESTEROL 48 mg/dL (5-100); T4 FREE 0.72 ng/dL (0.76-1.46)
[2019-08-13 06:44] LABS: PLATELET ESTIMATE NORMAL
[2019-08-13] MEDS: ASPIRIN 81MG EC TABLET PO SCH (08:40)
[2019-08-13] MEDS ORDERED: HYDROCODONE/ACETAMINOPHEN 5/325MG TABLET PO PRN (09:00)
[2019-08-13] MEDS ORDERED: MORPHINE SULFATE 2 MG/ML CPJ (NOT FOR IM USE) IV PRN (09:00)
[2019-08-13] MEDS ORDERED: FENTANYL CITRATE/PF 1,000 MCG in SODIUM CHLORIDE 0.9% 80 ML IV PRN (09:00)
[2019-08-13 10:09] LABS: BG BASE EXCESS -4.1 mmol/L (-2.0-2.0); BG CARBOXYHEMOGLOBIN 0.3 % (0.5-1.5); BG FRACTION INSPIRED OXYGEN 50; BG METHEMOGLOBIN 0.1 % (0.0-1.5); BG OXYHEMOGLOBIN 97.6 % (94.0-97.0); BG PCO2 38.2 mmHg (35.0-45.0); BG PH 7.358 (7.350-7.450); BG PO2 126.8 mmHg (75.0-100.0); BG SAMPLE SITE RIGHT RADIAL; BG TIDAL VOLUME(mL) 450 mL; BG TOTAL HEMOGLOBIN 9.9 g/dL (12.0-18.0); BG VENT MODE VENT - A/C; BG VENT RATE 20 set
[2019-08-13] MEDS ORDERED: MIDAZOLAM HCL 100 MG in DEXT 5% WATER 80 ML IV PRN ×2 (11:30→11:45)
[2019-08-13] MEDS: CEFTRIAXONE 1 G PREMIX 50 ML IV SCH (17:50)
[2019-08-13] MEDS ORDERED: AZITHROMYCIN 500 MG in DEXT 5% WATER 250 ML IV SCH (22:00)
[2019-08-14] MEDS: AZITHROMYCIN 500 MG in DEXT 5% WATER 250 ML IV SCH (01:00)
[2019-08-14] MEDS ORDERED: FENTANYL CITRATE/PF 1,000 MCG in SODIUM CHLORIDE 0.9% 80 ML IV PRN (07:00)
[2019-08-14] MEDS: ACETYLCYSTEINE 100MG/ML 10% VIAL 4ML INH SCH ×2 (08:25→15:22)
[2019-08-14] MEDS: IPRATROPIUM/ALBUTEROL 0.5-3(2.5)MG/3ML NEB HHN SCH ×4 (08:41→20:50)
[2019-08-14 09:39] LABS: BG BASE EXCESS 0.8 mmol/L (-2.0-2.0); BG CARBOXYHEMOGLOBIN 0.3 % (0.5-1.5); BG DEOXYHEMOGLOBIN 1.9 % (0.0-5.0); BG FRACTION INSPIRED OXYGEN 50; BG METHEMOGLOBIN 0.6 % (0.0-1.5); BG OXYGEN SATURATION 98.1 % (92.0-98.5); BG OXYHEMOGLOBIN 97.2 % (94.0-97.0); BG PCO2 27.8 mmHg (35.0-45.0); BG PH 7.536 (7.350-7.450); BG SAMPLE SITE RIGHT RADIAL; BG TIDAL VOLUME(mL) 450 mL; BG TOTAL HEMOGLOBIN 8.7 g/dL (12.0-18.0); BG VENT MODE VENT - A/C; BG VENT RATE 20 set
[2019-08-14] MEDS ORDERED: NOREPINEPHRINE 4MG/250ML PMX 250 ML IV PRN (12:30)
[2019-08-14] MEDS: DEXT 5%/0.45% NACL 1000ML 1,000 ML IV SCH (13:02)
[2019-08-14] MEDS: CEFTRIAXONE 1 G PREMIX 50 ML IV SCH (17:57)
[2019-08-14] MEDS: ASPIRIN 81MG EC TABLET PO SCH (22:32)
[2019-08-15] VITALS (10 sets, daily range): BP systolic 73–145; BP diastolic 35–68
[2019-08-15] MEDS: AZITHROMYCIN 500 MG in DEXT 5% WATER 250 ML IV SCH ×2
[2019-08-15] MEDS: IPRATROPIUM/ALBUTEROL 0.5-3(2.5)MG/3ML NEB HHN SCH ×5 (00:43→17:12)
[2019-08-15] MEDS: ASPIRIN 81MG EC TABLET PO SCH (09:00)
[2019-08-15 09:14] LABS: BG CARBOXYHEMOGLOBIN 0.3 % (0.5-1.5); BG DEOXYHEMOGLOBIN 2.3 % (0.0-5.0); BG FRACTION INSPIRED OXYGEN 40; BG HCO3 ACT 27.3 mmol/L (22.0-26.0); BG METHEMOGLOBIN 0.3 % (0.0-1.5); BG OXYGEN SATURATION 97.7 % (92.0-98.5); BG OXYHEMOGLOBIN 97.1 % (94.0-97.0); BG PCO2 40.5 mmHg (35.0-45.0); BG PH 7.447 (7.350-7.450); BG PO2 111.4 mmHg (75.0-100.0); BG SAMPLE SITE RIGHT RADIAL; BG TIDAL VOLUME(mL) 450 mL; BG TOTAL HEMOGLOBIN 8.3 g/dL (12.0-18.0); BG VENT MODE VENT - A/C; BG VENT RATE 16 set
[2019-08-15] MEDS: ACETYLCYSTEINE 100MG/ML 10% VIAL 4ML INH SCH ×3 (09:45→17:12)
[2019-08-15] MEDS: DEXT 5%/0.45% NACL 1000ML 1,000 ML IV SCH ×3 (10:38→20:00)
[2019-08-15 11:29] LABS: HEMATOCRIT 24.1 % (42.0-52.0); HEMOGLOBIN 8.1 g/dL (14.0-18.0); MEAN CORPUSCULAR HEMOGLOBIN 31.7 pg (28.0-32.0); MEAN CORPUSCULAR VOLUME 94.5 fL (80.0-94.0); PLATELET 145 x1000/uL (130-400); RED BLOOD CELL COUNT 2.55 mill/uL (4.7-6.1); RED CELL DISTRIBUTION WIDTH 14.7 % (11.6-14.6)
[2019-08-15 11:53] LABS: CHLORIDE 107 mEq/L (98-107)
[2019-08-15 13:11] LABS: BG BASE EXCESS -0.6 mmol/L (-2.0-2.0); BG CARBOXYHEMOGLOBIN 0.3 % (0.5-1.5); BG DEOXYHEMOGLOBIN 6.9 % (0.0-5.0); BG FRACTION INSPIRED OXYGEN 21; BG HCO3 ACT 25.6 mmol/L (22.0-26.0); BG METHEMOGLOBIN 0.3 % (0.0-1.5); BG OXYGEN SATURATION 93.1 % (92.0-98.5); BG OXYHEMOGLOBIN 92.5 % (94.0-97.0); BG PCO2 50.6 mmHg (35.0-45.0); BG PH 7.322 (7.350-7.450); BG SAMPLE SITE RIGHT RADIAL; BG TOTAL HEMOGLOBIN 8.4 g/dL (12.0-18.0); BG VENT MODE ROOM AIR
[2019-08-15 15:15] LABS: BG BASE EXCESS -2.4 mmol/L (-2.0-2.0); BG CARBOXYHEMOGLOBIN 0.3 % (0.5-1.5); BG DEOXYHEMOGLOBIN 5.7 % (0.0-5.0); BG METHEMOGLOBIN 0.2 % (0.0-1.5); BG OXYGEN SATURATION 94.3 % (92.0-98.5); BG OXYHEMOGLOBIN 93.8 % (94.0-97.0); BG PCO2 42.4 mmHg (35.0-45.0); BG PH 7.353 (7.350-7.450); BG PO2 79.3 mmHg (75.0-100.0); BG SAMPLE SITE RIGHT BRACHIAL; BG TOTAL HEMOGLOBIN 9.4 g/dL (12.0-18.0); BG VENT MODE MASK - VENTI
[2019-08-15] MEDS: CEFTRIAXONE 1 G PREMIX 50 ML IV SCH (17:51)
[2019-08-15] MEDS ORDERED: PHENYTOIN SODIUM 500 MG in SODIUM CHLORIDE 0.9% 50 ML IV NR (18:46)
[2019-08-15] MEDS ORDERED: IPRATROPIUM/ALBUTEROL 0.5-3(2.5)MG/3ML NEB HHN PRN (22:45)
[2019-08-16] VITALS (89 sets, daily range): BP systolic 79–129; BP diastolic 36–82
[2019-08-16] MEDS: NOREPINEPHRINE 4MG in DEXT 5% WATER 250ML IV PRN ×2 (00:15→06:54)
[2019-08-16] MEDS: ACETAMINOPHEN 325MG TABLET PO PRN (00:16)
[2019-08-16] MEDS: ENOXAPARIN 40MG/0.4ML SYR SUBCUT SCH ×2 (00:16→21:45)
[2019-08-16] MEDS ORDERED: POTASSIUM CHLORIDE INJ 40 MEQ in DEXT 5% WATER 250 ML IV NR (00:30)
[2019-08-16] MEDS: IPRATROPIUM/ALBUTEROL 0.5-3(2.5)MG/3ML NEB HHN SCH ×4 (01:42→21:37)
[2019-08-16] MEDS: ACETYLCYSTEINE 100MG/ML 10% VIAL 4ML INH SCH ×4 (01:42→21:37)
[2019-08-16 05:51] LABS: HEMATOCRIT. 25.1 % (42.0-52.0); HEMOGLOBIN. 8.5 g/dL (14.0-18.0); MEAN CORPUSCULAR HEMOGLOBIN 31.9 pg (28.0-32.0); MEAN PLATELET VOLUME 8.8 fl (7.4-10.4); PLATELET 152 x1000/uL (130-400); RED BLOOD CELL COUNT 2.68 mill/uL (4.7-6.1); RED CELL DISTRIBUTION WIDTH 14.3 % (11.6-14.6)
[2019-08-16] MEDS: AZITHROMYCIN 500 MG in DEXT 5% WATER 250 ML IV SCH (05:53)
[2019-08-16] MEDS: DEXT 5%/0.45% NACL 1000ML 1,000 ML IV SCH ×2 (05:53→16:40)
[2019-08-16 06:06] LABS: CHLORIDE 105 mEq/L (98-107)
[2019-08-16] MEDS: ASPIRIN 81MG EC TABLET PO SCH (09:26)
[2019-08-16 09:53] LABS: PLATELET ESTIMATE NORMAL
[2019-08-16] MEDS ORDERED: KCL 20MEQ/100ML PREMIX 100 ML IV NR (11:00)
[2019-08-16] MEDS: CEFTRIAXONE 1 G PREMIX 50 ML IV SCH (18:15)
[2019-08-16] MEDS: LEVETIRACETAM 500MG/5ML CUP PO SCH (20:56)
[2019-08-16] MEDS ORDERED: PHENOBARBITAL 30 MG TABLET NG SCH (21:00)
[2019-08-17] VITALS (78 sets, daily range): BP systolic 96–126; BP diastolic 46–78
[2019-08-17] MEDS: ACETYLCYSTEINE 100MG/ML 10% VIAL 4ML INH SCH ×3 (01:00→15:50)
[2019-08-17] MEDS: NOREPINEPHRINE 4MG in DEXT 5% WATER 250ML IV PRN (02:00)
[2019-08-17] MEDS: IPRATROPIUM/ALBUTEROL 0.5-3(2.5)MG/3ML NEB HHN SCH ×4 (02:36→20:35)
[2019-08-17] MEDS: AZITHROMYCIN 500 MG in DEXT 5% WATER 250 ML IV SCH (06:23)
[2019-08-17 06:48] LABS: BASOPHILS % 0.1 % (0.0-2.0); EOSINOPHILS % 1.8 % (0.0-5.0); HEMATOCRIT. 24.5 % (42.0-52.0); HEMOGLOBIN. 8.4 g/dL (14.0-18.0); LYMPHOCYTES % 11.8 % (20.0-50.0); MEAN CORPUSCULAR HEMOGLOBIN 32.4 pg (28.0-32.0); MEAN CORPUSCULAR VOLUME 93.9 fL (80.0-94.0); MEAN PLATELET VOLUME 8.3 fl (7.4-10.4); MONOCYTES % 12.7 % (2.0-8.0); NEUTROPHILS % 73.6 % (40.0-76.0); PLATELET 167 x1000/uL (130-400); RED BLOOD CELL COUNT 2.61 mill/uL (4.7-6.1); RED CELL DISTRIBUTION WIDTH 14.2 % (11.6-14.6)
[2019-08-17 06:58] LABS: CHLORIDE 111 mEq/L (98-107)
[2019-08-17] MEDS: DEXT 5%/0.45% NACL 1000ML 1,000 ML IV SCH ×3 (07:33→18:42)
[2019-08-17] MEDS: LEVETIRACETAM 500MG/5ML CUP PO SCH ×2 (08:51→20:52)
[2019-08-17] MEDS: FOLIC ACID 1MG TABLET PO SCH (08:51)
[2019-08-17] MEDS: ASPIRIN 81MG EC TABLET PO SCH (08:51)
[2019-08-17] MEDS ORDERED: PHENOBARBITAL 30 MG TABLET NG SCH (09:00)
[2019-08-17] MEDS ORDERED: POTASSIUM CHLORIDE 20MEQ/PACKET NG NR (10:00)
[2019-08-17] MEDS ORDERED: KCL 20MEQ/100ML PREMIX 100 ML IV NR (11:00)
[2019-08-17] MEDS: MIDODRINE HCL 5MG TABLET PO SCH ×2 (15:11→17:34)
[2019-08-17] MEDS: CEFTRIAXONE 1 G PREMIX 50 ML IV SCH (20:00)
[2019-08-17] MEDS: ENOXAPARIN 40MG/0.4ML SYR SUBCUT SCH (20:46)
[2019-08-18] VITALS (89 sets, daily range): BP systolic 83–116; BP diastolic 40–104
[2019-08-18] MEDS: ACETYLCYSTEINE 100MG/ML 10% VIAL 4ML INH SCH ×2 (01:00→14:31)
[2019-08-18] MEDS: IPRATROPIUM/ALBUTEROL 0.5-3(2.5)MG/3ML NEB HHN SCH ×4 (01:00→20:31)
[2019-08-18] MEDS: DEXT 5%/0.45% NACL 1000ML 1,000 ML IV SCH ×3 (04:51→17:48)
[2019-08-18] MEDS: AZITHROMYCIN 500 MG in DEXT 5% WATER 250 ML IV SCH (05:02)
[2019-08-18 06:07] LABS: CHLORIDE 109 mEq/L (98-107)
[2019-08-18 06:10] LABS: BASOPHILS % 0.2 % (0.0-2.0); EOSINOPHILS % 1.2 % (0.0-5.0); HEMATOCRIT. 22.1 % (42.0-52.0); HEMOGLOBIN. 7.5 g/dL (14.0-18.0); LYMPHOCYTES % 17.1 % (20.0-50.0); MEAN CORPUSCULAR HEMOGLOBIN 32.1 pg (28.0-32.0); MEAN CORPUSCULAR VOLUME 94.2 fL (80.0-94.0); MEAN PLATELET VOLUME 8.7 fl (7.4-10.4); MONOCYTES % 11.9 % (2.0-8.0); NEUTROPHILS % 69.6 % (40.0-76.0); PLATELET 167 x1000/uL (130-400); RED BLOOD CELL COUNT 2.34 mill/uL (4.7-6.1); RED CELL DISTRIBUTION WIDTH 14.3 % (11.6-14.6)
[2019-08-18] MEDS: FOLIC ACID 1MG TABLET PO SCH (08:56)
[2019-08-18] MEDS: LEVETIRACETAM 500MG/5ML CUP PO SCH ×2 (08:56→21:02)
[2019-08-18] MEDS: MIDODRINE HCL 5MG TABLET PO SCH ×3 (08:56→17:46)
[2019-08-18] MEDS: ASPIRIN 81MG EC TABLET PO SCH (08:56)
[2019-08-18] MEDS ORDERED: POTASSIUM CHLORIDE INJ 40 MEQ in DEXT 5% WATER 250 ML IV SCH (11:00)
[2019-08-18] MEDS: ACETAMINOPHEN 325MG TABLET PO PRN (20:59)
[2019-08-18] MEDS: ENOXAPARIN 40MG/0.4ML SYR SUBCUT SCH (20:59)
[2019-08-18] MEDS: DIPHENHYDRAMINE 50MG/ML VIAL IV PRN (21:00)
[2019-08-19] MEDS: IPRATROPIUM/ALBUTEROL 0.5-3(2.5)MG/3ML NEB HHN SCH ×4 (01:05→22:13)
[2019-08-19] MEDS: DEXT 5%/0.45% NACL 1000ML 1,000 ML IV SCH ×2 (03:27→13:45)
[2019-08-19 07:08] LABS: CHLORIDE 108 mEq/L (98-107)
[2019-08-19 08:13] LABS: BASOPHILS % 0.3 % (0.0-2.0); EOSINOPHILS % 3.4 % (0.0-5.0); HEMOGLOBIN. 7.6 g/dL (14.0-18.0); MEAN CORPUSCULAR HEMOGLOBIN 32.2 pg (28.0-32.0); MEAN CORPUSCULAR VOLUME 93.7 fL (80.0-94.0); MEAN PLATELET VOLUME 8.2 fl (7.4-10.4); MONOCYTES % 13.7 % (2.0-8.0); NEUTROPHILS % 58.6 % (40.0-76.0); PLATELET 223 x1000/uL (130-400); RED BLOOD CELL COUNT 2.35 mill/uL (4.7-6.1); RED CELL DISTRIBUTION WIDTH 14.2 % (11.6-14.6)
[2019-08-19] MEDS: FOLIC ACID 1MG TABLET PO SCH (08:24)
[2019-08-19] MEDS: ASPIRIN 81MG EC TABLET PO SCH (08:24)
[2019-08-19] MEDS: MIDODRINE HCL 5MG TABLET PO SCH ×3 (08:24→16:49)
[2019-08-19] MEDS: LEVETIRACETAM 500MG/5ML CUP PO SCH ×2 (08:24→21:20)
[2019-08-19 08:30] VITALS: BP 122/57
[2019-08-19 12:54] VITALS: BP 98/55
[2019-08-19 16:00] VITALS: BP 98/46
[2019-08-19 20:00] VITALS: BP 90/40
[2019-08-19] MEDS: ENOXAPARIN 40MG/0.4ML SYR SUBCUT SCH (21:19)
[2019-08-19 23:50] VITALS: BP 96/33
[2019-08-20] MEDS: IPRATROPIUM/ALBUTEROL 0.5-3(2.5)MG/3ML NEB HHN SCH ×4 (03:03→22:03)
[2019-08-20] MEDS: DEXT 5%/0.45% NACL 1000ML 1,000 ML IV SCH ×3 (03:36→20:30)
[2019-08-20 04:00] VITALS: BP 95/47
[2019-08-20 07:34] LABS: BASOPHILS % 0.2 % (0.0-2.0); EOSINOPHILS % 3.4 % (0.0-5.0); HEMATOCRIT. 23.3 % (42.0-52.0); LYMPHOCYTES % 26.6 % (20.0-50.0); MEAN CORPUSCULAR HEMOGLOBIN 32.1 pg (28.0-32.0); MEAN CORPUSCULAR VOLUME 93.6 fL (80.0-94.0); MEAN PLATELET VOLUME 7.7 fl (7.4-10.4); MONOCYTES % 11.2 % (2.0-8.0); NEUTROPHILS % 58.6 % (40.0-76.0); PLATELET 288 x1000/uL (130-400); RED BLOOD CELL COUNT 2.49 mill/uL (4.7-6.1); RED CELL DISTRIBUTION WIDTH 14.1 % (11.6-14.6)
[2019-08-20 07:55] LABS: CHLORIDE 103 mEq/L (98-107)
[2019-08-20 08:00] VITALS: BP 99/43
[2019-08-20] MEDS: MIDODRINE HCL 5MG TABLET PO SCH ×3 (08:41→17:18)
[2019-08-20] MEDS: ASPIRIN 81MG EC TABLET PO SCH (08:41)
[2019-08-20] MEDS: FOLIC ACID 1MG TABLET PO SCH (08:41)
[2019-08-20] MEDS: LEVETIRACETAM 500MG/5ML CUP PO SCH ×2 (08:44→21:36)
[2019-08-20] MEDS: ACETYLCYSTEINE 100MG/ML 10% VIAL 4ML INH SCH ×2 (09:57→22:03)
[2019-08-20 12:00] VITALS: BP 104/47
[2019-08-20 16:00] VITALS: BP 96/37
[2019-08-20 20:00] VITALS: BP 108/39
[2019-08-20] MEDS: ACETAMINOPHEN 650MG SUPP PR PRN (21:35)
[2019-08-20] MEDS: ENOXAPARIN 40MG/0.4ML SYR SUBCUT SCH (21:36)
[2019-08-21] VITALS: BP_SYST 101; BP_SYST 106; BP_DIAS 45; BP_DIAS 49
[2019-08-21] MEDS: IPRATROPIUM/ALBUTEROL 0.5-3(2.5)MG/3ML NEB HHN SCH ×4 (01:15→21:45)
[2019-08-21] MEDS: DIPHENHYDRAMINE 50MG/ML VIAL IV PRN (03:04)
[2019-08-21 04:00] VITALS: BP 100/42
[2019-08-21] MEDS: ACETAMINOPHEN 650MG SUPP PR PRN (04:02)
[2019-08-21] MEDS: DEXT 5%/0.45% NACL 1000ML 1,000 ML IV SCH ×2 (06:19→18:15)
[2019-08-21 07:00] LABS: BASOPHILS % 0.1 % (0.0-2.0); EOSINOPHILS % 0.9 % (0.0-5.0); HEMATOCRIT. 23.8 % (42.0-52.0); HEMOGLOBIN. 8.3 g/dL (14.0-18.0); LYMPHOCYTES % 13.5 % (20.0-50.0); MEAN CORPUSCULAR HEMOGLOBIN 32.4 pg (28.0-32.0); MEAN CORPUSCULAR VOLUME 92.8 fL (80.0-94.0); MEAN PLATELET VOLUME 7.9 fl (7.4-10.4); NEUTROPHILS % 78.5 % (40.0-76.0); PLATELET 347 x1000/uL (130-400); RED BLOOD CELL COUNT 2.56 mill/uL (4.7-6.1); RED CELL DISTRIBUTION WIDTH 13.9 % (11.6-14.6)
[2019-08-21 07:27] LABS: CHLORIDE 103 mEq/L (98-107)
[2019-08-21 08:00] VITALS: BP 112/52
[2019-08-21] MEDS: ACETYLCYSTEINE 100MG/ML 10% VIAL 4ML INH SCH ×2 (08:10→21:45)
[2019-08-21] MEDS: LEVETIRACETAM 500MG/5ML CUP PO SCH ×2 (09:08→20:11)
[2019-08-21] MEDS: ASPIRIN 81MG EC TABLET PO SCH (09:08)
[2019-08-21] MEDS: FOLIC ACID 1MG TABLET PO SCH (09:08)
[2019-08-21] MEDS: MIDODRINE HCL 5MG TABLET PO SCH ×3 (09:09→16:30)
[2019-08-21 12:00] VITALS: BP 103/55
[2019-08-21 16:00] VITALS: BP 104/48
[2019-08-21] MEDS: ACETAMINOPHEN 325MG TABLET PO PRN (16:30)
[2019-08-21] MEDS: ENOXAPARIN 40MG/0.4ML SYR SUBCUT SCH (20:11)
[2019-08-22] MEDS: IPRATROPIUM/ALBUTEROL 0.5-3(2.5)MG/3ML NEB HHN SCH ×3 (01:05→14:35)
[2019-08-22] MEDS: DEXT 5%/0.45% NACL 1000ML 1,000 ML IV SCH ×3 (04:33→23:15)
[2019-08-22 06:35] LABS: BASOPHILS % 0.2 % (0.0-2.0); HEMATOCRIT. 24.4 % (42.0-52.0); HEMOGLOBIN. 8.2 g/dL (14.0-18.0); MEAN CORPUSCULAR HEMOGLOBIN 31.4 pg (28.0-32.0); NEUTROPHILS % 82.8 % (40.0-76.0); PLATELET 420 x1000/uL (130-400); RED BLOOD CELL COUNT 2.62 mill/uL (4.7-6.1); RED CELL DISTRIBUTION WIDTH 13.7 % (11.6-14.6)
[2019-08-22 06:56] LABS: CHLORIDE 99 mEq/L (98-107)
[2019-08-22 08:13] VITALS: BP 90/48
[2019-08-22] MEDS: MIDODRINE HCL 5MG TABLET PO SCH ×3 (08:21→16:45)
[2019-08-22] MEDS: ASPIRIN 81MG EC TABLET PO SCH (08:21)
[2019-08-22] MEDS: LEVETIRACETAM 500MG/5ML CUP PO SCH ×2 (08:21→20:46)
[2019-08-22] MEDS: FOLIC ACID 1MG TABLET PO SCH (08:21)
[2019-08-22] MEDS: ACETAMINOPHEN 325MG TABLET PO PRN (08:22)
[2019-08-22] MEDS: ACETYLCYSTEINE 100MG/ML 10% VIAL 4ML INH SCH (09:54)
[2019-08-22 11:47] VITALS: BP 95/45
[2019-08-22 15:59] VITALS: BP 100/43
[2019-08-22 20:00] VITALS: BP 126/60
[2019-08-22] MEDS: ENOXAPARIN 40MG/0.4ML SYR SUBCUT SCH (20:44)
[2019-08-23] VITALS: BP 90/38
[2019-08-23] MEDS: ACETAMINOPHEN 325MG TABLET PO PRN (00:09)
[2019-08-23] MEDS: IPRATROPIUM/ALBUTEROL 0.5-3(2.5)MG/3ML NEB HHN SCH ×4 (03:04→21:16)
[2019-08-23] MEDS: ACETYLCYSTEINE 100MG/ML 10% VIAL 4ML INH SCH ×3 (03:05→21:16)
[2019-08-23 04:00] VITALS: BP 97/44
[2019-08-23 08:00] VITALS: BP 101/37
[2019-08-23] MEDS: ASPIRIN 81MG EC TABLET PO SCH (08:22)
[2019-08-23] MEDS: MIDODRINE HCL 5MG TABLET PO SCH ×3 (08:22→16:42)
[2019-08-23] MEDS: FOLIC ACID 1MG TABLET PO SCH (08:22)
[2019-08-23] MEDS: DEXT 5%/0.45% NACL 1000ML 1,000 ML IV SCH ×2 (08:22→17:46)
[2019-08-23] MEDS: LEVETIRACETAM 500MG/5ML CUP PO SCH ×2 (08:22→21:06)
[2019-08-23] MEDS: PIPERACILLIN/TAZOBACTAM 3.375 G in DEXT 5% WATER 100 ML IV SCH ×3 (10:06→21:04)
[2019-08-23 11:58] VITALS: BP 99/42
[2019-08-23 12:11] LABS: CLARITY URINE CLEAR (CLEAR); COLOR URINE YELLOW (YELLOW); KETONES URINE NEGATIVE (NEGATIVE); LEUKOCYTE ESTERASE URINE 2+ (NEGATIVE); NITRITE URINE NEGATIVE (NEGATIVE); OCCULT BLOOD URINE NEGATIVE (NEGATIVE); PROTEIN URINE NEGATIVE (NEGATIVE); SPECIFIC GRAVITY URINE 1.007 (1.005-1.030); UROBILINOGEN URINE 0.2 E.U./dL (0.2-1.0)
[2019-08-23 15:30] VITALS: BP 112/56
[2019-08-23 20:00] VITALS: BP 112/43
[2019-08-23] MEDS: ENOXAPARIN 40MG/0.4ML SYR SUBCUT SCH (21:07)
[2019-08-24] VITALS: BP 100/44
[2019-08-24] MEDS: IPRATROPIUM/ALBUTEROL 0.5-3(2.5)MG/3ML NEB HHN SCH ×4 (01:10→21:10)
[2019-08-24] MEDS: PIPERACILLIN/TAZOBACTAM 3.375 G in DEXT 5% WATER 100 ML IV SCH ×4 (03:02→21:12)
[2019-08-24 04:00] VITALS: BP 105/48
[2019-08-24] MEDS: DEXT 5%/0.45% NACL 1000ML 1,000 ML IV SCH ×2 (05:03→17:31)
[2019-08-24 06:47] LABS: HEMATOCRIT. 22.3 % (42.0-52.0); HEMOGLOBIN. 7.6 g/dL (14.0-18.0); MEAN CORPUSCULAR HEMOGLOBIN 31.9 pg (28.0-32.0); MEAN CORPUSCULAR VOLUME 93.1 fL (80.0-94.0); MEAN PLATELET VOLUME 8.1 fl (7.4-10.4); PLATELET 533 x1000/uL (130-400); RED BLOOD CELL COUNT 2.39 mill/uL (4.7-6.1); RED CELL DISTRIBUTION WIDTH 14.2 % (11.6-14.6)
[2019-08-24 07:22] LABS: CHLORIDE 102 mEq/L (98-107)
[2019-08-24 08:00] VITALS: BP 99/48
[2019-08-24] MEDS: MIDODRINE HCL 5MG TABLET PO SCH ×3 (08:44→17:30)
[2019-08-24] MEDS: LEVETIRACETAM 500MG/5ML CUP PO SCH ×2 (09:24→20:48)
[2019-08-24] MEDS: FOLIC ACID 1MG TABLET PO SCH (09:24)
[2019-08-24] MEDS: ASPIRIN 81MG EC TABLET PO SCH (09:24)
[2019-08-24] MEDS: ACETYLCYSTEINE 100MG/ML 10% VIAL 4ML INH SCH ×2 (09:51→10:45)
[2019-08-24 12:00] VITALS: BP 106/58
[2019-08-24 13:26] LABS: PLATELET ESTIMATE INCREASED
[2019-08-24 16:00] VITALS: BP 107/51
[2019-08-24 20:00] VITALS: BP 113/62
[2019-08-24] MEDS: ENOXAPARIN 40MG/0.4ML SYR SUBCUT SCH (20:48)
[2019-08-24] MEDS: ACETAMINOPHEN 650MG SUPP PR PRN (21:09)
[2019-08-25] VITALS: BP 109/47
[2019-08-25] MEDS: IPRATROPIUM/ALBUTEROL 0.5-3(2.5)MG/3ML NEB HHN SCH ×4 (02:45→20:00)
[2019-08-25] MEDS: PIPERACILLIN/TAZOBACTAM 3.375 G in DEXT 5% WATER 100 ML IV SCH ×4 (03:37→20:10)
[2019-08-25 04:00] VITALS: BP 100/54
[2019-08-25] MEDS: DEXT 5%/0.45% NACL 1000ML 1,000 ML IV SCH ×3 (06:34→20:00)
[2019-08-25 06:49] LABS: BASOPHILS % 0.4 % (0.0-2.0); EOSINOPHILS % 0.8 % (0.0-5.0); HEMOGLOBIN. 8.2 g/dL (14.0-18.0); MEAN CORPUSCULAR HEMOGLOBIN 31.8 pg (28.0-32.0); MEAN CORPUSCULAR VOLUME 93.3 fL (80.0-94.0); MEAN PLATELET VOLUME 7.5 fl (7.4-10.4); MONOCYTES % 5.7 % (2.0-8.0); NEUTROPHILS % 84.1 % (40.0-76.0); PLATELET 606 x1000/uL (130-400); RED BLOOD CELL COUNT 2.57 mill/uL (4.7-6.1); RED CELL DISTRIBUTION WIDTH 14.3 % (11.6-14.6)
[2019-08-25 08:00] VITALS: BP 108/50
[2019-08-25 08:18] LABS: CHLORIDE 101 mEq/L (98-107)
[2019-08-25] MEDS: ASPIRIN 81MG EC TABLET PO SCH (09:00)
[2019-08-25] MEDS: FOLIC ACID 1MG TABLET PO SCH (09:00)
[2019-08-25] MEDS: LEVETIRACETAM 500MG/5ML CUP PO SCH ×2 (09:00→20:10)
[2019-08-25] MEDS: MIDODRINE HCL 5MG TABLET PO SCH ×3 (09:00→18:11)
[2019-08-25] MEDS ORDERED: BUPIVACAINE HCL 0.5% (5MG/ML) 50ML ONE (10:42)
[2019-08-25] MEDS ORDERED: FENTANYL CITRATE/PF 50MCG/ML 2ML VIAL ONE (10:51)
[2019-08-25] MEDS ORDERED: ROCURONIUM BROMIDE 10MG/ML VIAL 5ML IV ONE (10:51)
[2019-08-25] MEDS ORDERED: MIDAZOLAM HCL 2 MG/2 ML VIAL ONE (10:51)
[2019-08-25] MEDS ORDERED: PROPOFOL 200MG/20ML VIAL IV ONE (10:51)
[2019-08-25] MEDS ORDERED: LIDOCAINE HCL/PF 1% 10 MG/ML 5ML VIAL ONE (10:53)
[2019-08-25] MEDS ORDERED: SODIUM CHLORIDE 0.9% 10ML VIAL ONE (10:53)
[2019-08-25] MEDS ORDERED: CEFAZOLIN SODIUM 1000MG/VIAL ONE (10:53)
[2019-08-25] MEDS ORDERED: SKIN ADHESIVE 0.7 GM EA TOP ONE (11:34)
[2019-08-25] MEDS ORDERED: ETOMIDATE 2MG/ML 10ML VIAL IV ONE (11:45)
[2019-08-25] MEDS ORDERED: GLYCOPYRROLATE 0.2 MG/ML 2ML VIAL ONE (11:46)
[2019-08-25] MEDS ORDERED: NEOSTIGMINE METHYLSULFATE 1MG/ML 10 ML VIAL ONE (11:46)
[2019-08-25] MEDS ORDERED: ONDANSETRON HCL 4MG/2ML INJ IV PRN (12:15)
[2019-08-25] MEDS: ACETAMINOPHEN 325MG TABLET PO PRN (15:09)
[2019-08-25 16:00] VITALS: BP 147/90
[2019-08-25 20:00] VITALS: BP 106/49
[2019-08-25] MEDS: ACETAMINOPHEN 650MG SUPP PR PRN (20:10)
[2019-08-25] MEDS: ENOXAPARIN 40MG/0.4ML SYR SUBCUT SCH (20:11)
[2019-08-26] VITALS: BP 95/59
[2019-08-26] MEDS: IPRATROPIUM/ALBUTEROL 0.5-3(2.5)MG/3ML NEB HHN SCH ×4 (01:09→21:46)
[2019-08-26] MEDS: ACETAMINOPHEN 650MG SUPP PR PRN (01:39)
[2019-08-26] MEDS: DEXT 5%/0.45% NACL 1000ML 1,000 ML IV SCH ×3 (02:39→18:28)
[2019-08-26 04:00] VITALS: BP 93/55
[2019-08-26] MEDS: PIPERACILLIN/TAZOBACTAM 3.375 G in DEXT 5% WATER 100 ML IV SCH ×4 (04:19→20:45)
[2019-08-26 08:00] VITALS: BP 93/51
[2019-08-26] MEDS: LEVETIRACETAM 500MG/5ML CUP PO SCH ×2 (08:21→20:45)
[2019-08-26] MEDS: ACETAMINOPHEN 325MG TABLET PO PRN (08:22)
[2019-08-26] MEDS: ASPIRIN 81MG EC TABLET PO SCH (08:22)
[2019-08-26] MEDS: FOLIC ACID 1MG TABLET PO SCH (08:22)
[2019-08-26] MEDS: MIDODRINE HCL 5MG TABLET PO SCH ×3 (08:23→17:00)
[2019-08-26 12:18] VITALS: BP 103/71
[2019-08-26] MEDS ORDERED: METOCLOPRAMIDE HCL 10MG/2ML VIAL IV SCH (14:30)
[2019-08-26] MEDS ORDERED: ACETAMINOPHEN 650MG SUPP PR SCH (15:06)
[2019-08-26] MEDS ORDERED: LACTULOSE 20G/30ML UDC PO SCH (15:30)
[2019-08-26 16:54] VITALS: BP 117/64
[2019-08-26] MEDS: METOCLOPRAMIDE HCL 10MG/2ML VIAL IV SCH (18:28)
[2019-08-26 20:00] VITALS: BP 102/65
[2019-08-26] MEDS: ENOXAPARIN 40MG/0.4ML SYR SUBCUT SCH (20:45)
[2019-08-27] VITALS: BP 102/97
[2019-08-27] MEDS: IPRATROPIUM/ALBUTEROL 0.5-3(2.5)MG/3ML NEB HHN SCH ×4 (01:37→21:05)
[2019-08-27 04:00] VITALS: BP 105/47
[2019-08-27] MEDS: PIPERACILLIN/TAZOBACTAM 3.375 G in DEXT 5% WATER 100 ML IV SCH ×4 (05:10→21:05)
[2019-08-27] MEDS: METOCLOPRAMIDE HCL 10MG/2ML VIAL IV SCH ×4 (05:23→18:30)
[2019-08-27 08:00] VITALS: BP 113/52
[2019-08-27 08:24] LABS: HEMATOCRIT. 21.3 % (42.0-52.0); HEMOGLOBIN. 7.3 g/dL (14.0-18.0); MEAN CORPUSCULAR HEMOGLOBIN 31.5 pg (28.0-32.0); MEAN CORPUSCULAR VOLUME 92.2 fL (80.0-94.0); MEAN PLATELET VOLUME 7.9 fl (7.4-10.4); PLATELET 665 x1000/uL (130-400); RED BLOOD CELL COUNT 2.31 mill/uL (4.7-6.1); RED CELL DISTRIBUTION WIDTH 13.9 % (11.6-14.6)
[2019-08-27] MEDS: FOLIC ACID 1MG TABLET PO SCH (08:54)
[2019-08-27] MEDS: ASPIRIN 81MG EC TABLET PO SCH (08:54)
[2019-08-27] MEDS: LEVETIRACETAM 500MG/5ML CUP PO SCH (09:00)
[2019-08-27] MEDS: ACETAMINOPHEN 325MG TABLET PO PRN (09:00)
[2019-08-27] MEDS: MIDODRINE HCL 5MG TABLET PO SCH ×3 (09:00→18:09)
[2019-08-27 09:11] LABS: CHLORIDE 102 mEq/L (98-107)
[2019-08-27 12:00] VITALS: BP 128/62
[2019-08-27 14:28] LABS: PLATELET ESTIMATE INCREASED
[2019-08-27] MEDS ORDERED: BISACODYL 10MG SUPP PR NR (15:30)
[2019-08-27] MEDS ORDERED: SORBITOL 70% SOLN 30ML PO NR (15:30)
[2019-08-27 16:00] VITALS: BP 107/50
[2019-08-27] MEDS: DEXT 5%/0.45% NACL 1000ML 1,000 ML IV SCH (18:30)
[2019-08-27 20:00] VITALS: BP 97/48
[2019-08-27] MEDS: ENOXAPARIN 40MG/0.4ML SYR SUBCUT SCH (21:05)
[2019-08-27] MEDS: LEVETIRACETAM 500MG PREMIX 100 ML IV SCH (21:06)
[2019-08-28] VITALS: BP 95/56
[2019-08-28] MEDS: METOCLOPRAMIDE HCL 10MG/2ML VIAL IV SCH ×4 (00:03→17:01)
[2019-08-28] MEDS: IPRATROPIUM/ALBUTEROL 0.5-3(2.5)MG/3ML NEB HHN SCH ×4 (03:14→21:34)
[2019-08-28] MEDS: PIPERACILLIN/TAZOBACTAM 3.375 G in DEXT 5% WATER 100 ML IV SCH ×4 (03:59→22:28)
[2019-08-28 04:00] VITALS: BP 120/51
[2019-08-28] MEDS: ACETAMINOPHEN 650MG SUPP PR PRN (05:33)
[2019-08-28 08:00] VITALS: BP 105/49
[2019-08-28] MEDS: LEVETIRACETAM 500MG PREMIX 100 ML IV SCH ×2 (08:21→21:46)
[2019-08-28] MEDS: ASPIRIN 81MG EC TABLET PO SCH (08:22)
[2019-08-28] MEDS: ACETAMINOPHEN 325MG TABLET PO PRN (08:22)
[2019-08-28] MEDS: MIDODRINE HCL 5MG TABLET PO SCH ×3 (08:22→16:57)
[2019-08-28] MEDS: FOLIC ACID 1MG TABLET PO SCH (08:22)
[2019-08-28] MEDS ORDERED: POTASSIUM CHLORIDE INJ 60 MEQ in DEXT 5% WATER 500 ML IV NR (10:00)
[2019-08-28 12:00] VITALS: BP 120/55
[2019-08-28] MEDS ORDERED: DIATR MEGLU/DIATRIZOATE SOLN 30ML ONE (14:10)
[2019-08-28 15:54] VITALS: BP 119/52
[2019-08-28] MEDS: DEXT 5%/0.45% NACL 1000ML 1,000 ML IV SCH (17:01)
[2019-08-28 20:00] VITALS: BP 107/49
[2019-08-28] MEDS: ENOXAPARIN 40MG/0.4ML SYR SUBCUT SCH (21:47)
[2019-08-29] MEDS: ACETAMINOPHEN 325MG TABLET PO PRN ×2 (00:22→11:58)
[2019-08-29] MEDS: METOCLOPRAMIDE HCL 10MG/2ML VIAL IV SCH ×5 (00:22→23:39)
[2019-08-29 01:38] LABS: CHLORIDE 102 mEq/L (98-107)
[2019-08-29] MEDS: IPRATROPIUM/ALBUTEROL 0.5-3(2.5)MG/3ML NEB HHN SCH ×4 (03:28→21:45)
[2019-08-29 04:00] VITALS: BP 98/60
[2019-08-29 08:00] VITALS: BP 108/80
[2019-08-29] MEDS: ASPIRIN 81MG EC TABLET PO SCH (08:37)
[2019-08-29] MEDS: MIDODRINE HCL 5MG TABLET PO SCH ×3 (08:38→17:39)
[2019-08-29] MEDS: LEVETIRACETAM 500MG PREMIX 100 ML IV SCH ×2 (08:38→20:34)
[2019-08-29] MEDS: FOLIC ACID 1MG TABLET PO SCH (08:38)
[2019-08-29] MEDS ORDERED: POTASSIUM CHLORIDE INJ 40 MEQ in DEXT 5% WATER 250 ML IV NR (10:30)
[2019-08-29 12:00] VITALS: BP 107/54
[2019-08-29 16:00] VITALS: BP 98/56
[2019-08-29] MEDS: DEXT 5%/0.45% NACL 1000ML 1,000 ML IV SCH (17:39)
[2019-08-29 18:44] VITALS: BP 98/56
[2019-08-29] MEDS: ENOXAPARIN 40MG/0.4ML SYR SUBCUT SCH (20:34)
[2019-08-29 20:35] VITALS: BP 109/56
[2019-08-30 00:38] VITALS: BP 98/51
[2019-08-30] MEDS: IPRATROPIUM/ALBUTEROL 0.5-3(2.5)MG/3ML NEB HHN SCH ×4 (03:19→15:35)
[2019-08-30] MEDS: ACETAMINOPHEN 650MG SUPP PR PRN ×3 (04:38→21:13)
[2019-08-30 04:40] VITALS: BP 109/56
[2019-08-30] MEDS: METOCLOPRAMIDE HCL 10MG/2ML VIAL IV SCH ×3 (05:58→17:29)
[2019-08-30 08:00] VITALS: BP 157/67
[2019-08-30] MEDS: FOLIC ACID 1MG TABLET PO SCH (09:00)
[2019-08-30] MEDS: MIDODRINE HCL 5MG TABLET PO SCH ×3 (09:00→17:00)
[2019-08-30] MEDS: ASPIRIN 81MG EC TABLET PO SCH (09:00)
[2019-08-30] MEDS: LEVETIRACETAM 500MG PREMIX 100 ML IV SCH ×2 (09:49→21:12)
[2019-08-30 12:00] VITALS: BP 98/56
[2019-08-30 16:00] VITALS: BP 92/42
[2019-08-30 17:20] LABS: HEMATOCRIT 24.8 % (42.0-52.0); HEMOGLOBIN 8.2 g/dL (14.0-18.0); MEAN CORPUSCULAR VOLUME 93.6 fL (80.0-94.0); PLATELET 417 x1000/uL (130-400); RED BLOOD CELL COUNT 2.65 mill/uL (4.7-6.1); RED CELL DISTRIBUTION WIDTH 14.8 % (11.6-14.6)
[2019-08-30 17:30] LABS: CHLORIDE 108 mEq/L (98-107)
[2019-08-30] MEDS: DEXT 5%/0.45% NACL 1000ML 1,000 ML IV SCH (17:53)
[2019-08-30 20:33] VITALS: BP 88/51
[2019-08-30] MEDS ORDERED: POTASSIUM CHLORIDE INJ 40 MEQ in DEXT 5% WATER 250 ML IV NR (21:00)
[2019-08-30] MEDS: ENOXAPARIN 40MG/0.4ML SYR SUBCUT SCH (21:12)
[2019-08-31 00:19] VITALS: BP 100/48
[2019-08-31 04:00] VITALS: BP 106/53
[2019-08-31] MEDS: METOCLOPRAMIDE HCL 10MG/2ML VIAL IV SCH ×4 (04:07→17:32)
[2019-08-31] MEDS: ACETAMINOPHEN 650MG SUPP PR PRN ×3 (05:40→21:16)
[2019-08-31 06:52] LABS: BASOPHILS % 0.2 % (0.0-2.0); EOSINOPHILS % 0.1 % (0.0-5.0); HEMATOCRIT. 27.6 % (42.0-52.0); HEMOGLOBIN. 9.1 g/dL (14.0-18.0); MEAN CORPUSCULAR VOLUME 93.5 fL (80.0-94.0); MEAN PLATELET VOLUME 8.3 fl (7.4-10.4); MONOCYTES % 10.3 % (2.0-8.0); NEUTROPHILS % 68.4 % (40.0-76.0); PLATELET 414 x1000/uL (130-400); RED BLOOD CELL COUNT 2.95 mill/uL (4.7-6.1); RED CELL DISTRIBUTION WIDTH 14.9 % (11.6-14.6)
[2019-08-31 07:23] LABS: CHLORIDE 112 mEq/L (98-107)
[2019-08-31 08:00] VITALS: BP 130/62
[2019-08-31] MEDS: ASPIRIN 81MG EC TABLET PO SCH (09:00)
[2019-08-31] MEDS: FOLIC ACID 1MG TABLET PO SCH (09:00)
[2019-08-31] MEDS: MIDODRINE HCL 5MG TABLET PO SCH ×3 (09:00→17:00)
[2019-08-31] MEDS: LEVETIRACETAM 500MG PREMIX 100 ML IV SCH ×2 (09:16→21:15)
[2019-08-31] MEDS ORDERED: PIPERACILLIN/TAZ 3.375G PREMIX 50 ML IV SCH (09:45)
[2019-08-31] MEDS ORDERED: PIPERACILLIN/TAZOBACTAM 3.375 G in DEXT 5% WATER 100 ML IV SCH (11:00)
[2019-08-31 12:00] VITALS: BP 108/62
[2019-08-31] MEDS: IPRATROPIUM/ALBUTEROL 0.5-3(2.5)MG/3ML NEB HHN SCH ×2 (14:15→20:35)
[2019-08-31] MEDS: FLUCONAZOLE 400MG/200ML BAG 200 ML IV SCH (15:38)
[2019-08-31 16:00] VITALS: BP 118/60
[2019-08-31] MEDS: DEXT 5%/0.45% NACL 1000ML 1,000 ML IV SCH (17:16)
[2019-08-31] MEDS: PIPERACILLIN/TAZOBACTAM 3.375 G in DEXT 5% WATER 100 ML IV SCH (17:32)
[2019-08-31 20:00] VITALS: BP 92/48
[2019-08-31] MEDS: ENOXAPARIN 40MG/0.4ML SYR SUBCUT SCH (21:15)
[2019-09-01] VITALS: BP 83/49
[2019-09-01] MEDS: PIPERACILLIN/TAZOBACTAM 3.375 G in DEXT 5% WATER 100 ML IV SCH ×4 (00:20→19:02)
[2019-09-01] MEDS: METOCLOPRAMIDE HCL 10MG/2ML VIAL IV SCH ×4 (00:20→18:59)
[2019-09-01] MEDS: IPRATROPIUM/ALBUTEROL 0.5-3(2.5)MG/3ML NEB HHN SCH ×4 (01:55→21:42)
[2019-09-01 04:00] VITALS: BP 87/54
[2019-09-01 07:17] LABS: CHLORIDE 115 mEq/L (98-107)
[2019-09-01 07:21] LABS: BASOPHILS % 0.3 % (0.0-2.0); EOSINOPHILS % 1.9 % (0.0-5.0); HEMATOCRIT. 25.7 % (42.0-52.0); HEMOGLOBIN. 8.5 g/dL (14.0-18.0); LYMPHOCYTES % 11.7 % (20.0-50.0); MEAN CORPUSCULAR HEMOGLOBIN 31.2 pg (28.0-32.0); MEAN CORPUSCULAR VOLUME 94.1 fL (80.0-94.0); MEAN PLATELET VOLUME 9.1 fl (7.4-10.4); MONOCYTES % 7.1 % (2.0-8.0); PLATELET 281 x1000/uL (130-400); RED BLOOD CELL COUNT 2.74 mill/uL (4.7-6.1)
[2019-09-01 07:34] LABS: CREATINE KINASE 520 IU/L (39-308)
[2019-09-01 08:00] VITALS: BP 99/47
[2019-09-01] MEDS: LEVETIRACETAM 500MG PREMIX 100 ML IV SCH ×2 (08:09→21:12)
[2019-09-01] MEDS: ASPIRIN 81MG EC TABLET PO SCH (08:09)
[2019-09-01] MEDS: DOCUSATE SODIUM 100MG CAPSULE PO PRN ×2 (08:09→17:00)
[2019-09-01] MEDS: FOLIC ACID 1MG TABLET PO SCH (08:09)
[2019-09-01] MEDS: MIDODRINE HCL 5MG TABLET PO SCH ×3 (08:13→19:00)
[2019-09-01] MEDS: ACETAMINOPHEN 325MG TABLET PO PRN (08:22)
[2019-09-01] MEDS ORDERED: SODIUM CHLORIDE 0.9% 500 ML IV SCH (09:00)
[2019-09-01] MEDS: DEXT 5%/0.9% NACL 1,000 ML IV SCH ×2 (11:19→22:27)
[2019-09-01 12:00] VITALS: BP 96/50
[2019-09-01] MEDS ORDERED: KCL 20MEQ/100ML PREMIX 100 ML IV NR (12:00)
[2019-09-01] MEDS ORDERED: POTASSIUM CHLORIDE INJ 40 MEQ in DEXT 5% WATER 250 ML IV NR (13:00)
[2019-09-01 16:00] VITALS: BP 101/62
[2019-09-01] MEDS: FLUCONAZOLE 400MG/200ML BAG 200 ML IV SCH (17:00)
[2019-09-01] MEDS: VANCOMYCIN 1 G PREMIX 200 ML IV SCH (17:01)
[2019-09-01 20:00] VITALS: BP 135/84
[2019-09-01] MEDS: ENOXAPARIN 40MG/0.4ML SYR SUBCUT SCH (21:13)
[2019-09-02] VITALS (10 sets, daily range): BP systolic 82–133; BP diastolic 54–78
[2019-09-02] MEDS: METOCLOPRAMIDE HCL 10MG/2ML VIAL IV SCH ×4 (00:20→17:09)
[2019-09-02] MEDS: PIPERACILLIN/TAZOBACTAM 3.375 G in DEXT 5% WATER 100 ML IV SCH ×4 (00:21→19:50)
[2019-09-02] MEDS: IPRATROPIUM/ALBUTEROL 0.5-3(2.5)MG/3ML NEB HHN SCH ×3 (01:24→21:19)
[2019-09-02] MEDS: VANCOMYCIN 1 G PREMIX 200 ML IV SCH (02:58)
[2019-09-02] MEDS: ACETAMINOPHEN 325MG TABLET PO PRN ×2 (04:23→11:01)
[2019-09-02 06:56] LABS: BASOPHILS % 0.6 % (0.0-2.0); EOSINOPHILS % 2.8 % (0.0-5.0); HEMOGLOBIN. 8.3 g/dL (14.0-18.0); LYMPHOCYTES % 13.1 % (20.0-50.0); MEAN CORPUSCULAR HEMOGLOBIN 31.3 pg (28.0-32.0); MEAN CORPUSCULAR VOLUME 94.5 fL (80.0-94.0); MEAN PLATELET VOLUME 9.9 fl (7.4-10.4); MONOCYTES % 7.2 % (2.0-8.0); NEUTROPHILS % 76.3 % (40.0-76.0); PLATELET 231 x1000/uL (130-400); RED BLOOD CELL COUNT 2.64 mill/uL (4.7-6.1); RED CELL DISTRIBUTION WIDTH 15.2 % (11.6-14.6)
[2019-09-02 07:06] LABS: CHLORIDE 121 mEq/L (98-107)
[2019-09-02] MEDS: FOLIC ACID 1MG TABLET PO SCH (08:28)
[2019-09-02] MEDS: ASPIRIN 81MG EC TABLET PO SCH (08:29)
[2019-09-02] MEDS: LEVETIRACETAM 500MG PREMIX 100 ML IV SCH (08:31)
[2019-09-02] MEDS: MIDODRINE HCL 5MG TABLET PO SCH ×3 (08:34→17:09)
[2019-09-02] MEDS ORDERED: DIGOXIN 500MCG/2ML AMP IV SCH (09:45)
[2019-09-02] MEDS ORDERED: LIDOCAINE HCL 1% 20ML VIAL (Pyxis) INJ ONE (10:12)
[2019-09-02] MEDS ORDERED: METOPROLOL TARTRATE 5MG/5ML VIAL IV SCH (11:30)
[2019-09-02] MEDS: DEXT 5%/0.9% NACL 1,000 ML IV SCH (11:40)
[2019-09-02] MEDS: VANCOMYCIN 750 MG PREMIX 150 ML IV SCH ×2 (11:40→20:41)
[2019-09-02] MEDS: FLUCONAZOLE 400MG/200ML BAG 200 ML IV SCH (16:25)
[2019-09-02] MEDS: LEVETIRACETAM 750 MG in SODIUM CHLORIDE 0.9% 100 ML IV SCH (21:13)
[2019-09-02] MEDS: ENOXAPARIN 40MG/0.4ML SYR SUBCUT SCH (21:28)
[2019-09-03] VITALS (22 sets, daily range): BP systolic 76–146; BP diastolic 36–75
[2019-09-03] MEDS: METOCLOPRAMIDE HCL 10MG/2ML VIAL IV SCH ×3 (00:29→13:50)
[2019-09-03] MEDS: PIPERACILLIN/TAZOBACTAM 3.375 G in DEXT 5% WATER 100 ML IV SCH ×2 (00:36→06:11)
[2019-09-03] MEDS: DEXT 5%/0.9% NACL 1,000 ML IV SCH (00:48)
[2019-09-03] MEDS: IPRATROPIUM/ALBUTEROL 0.5-3(2.5)MG/3ML NEB HHN SCH ×4 (01:08→20:13)
[2019-09-03] MEDS: VANCOMYCIN 750 MG PREMIX 150 ML IV SCH (03:30)
[2019-09-03 06:50] LABS: CHLORIDE 126 mEq/L (98-107)
[2019-09-03 06:55] LABS: AMYLASE 256 IU/L (25-115)
[2019-09-03 07:39] LABS: BASOPHILS % 0.5 % (0.0-2.0); EOSINOPHILS % 0.7 % (0.0-5.0); LYMPHOCYTES % 13.9 % (20.0-50.0); MEAN CORPUSCULAR VOLUME 94.4 fL (80.0-94.0); MEAN PLATELET VOLUME 11.5 fl (7.4-10.4); MONOCYTES % 6.5 % (2.0-8.0); NEUTROPHILS % 78.4 % (40.0-76.0); PLATELET 73 x1000/uL (130-400); RED BLOOD CELL COUNT 1.95 mill/uL (4.7-6.1); RED CELL DISTRIBUTION WIDTH 15.5 % (11.6-14.6)
[2019-09-03 07:54] LABS: HEMOGLOBIN. 6.1 g/dL (14.0-18.0)
[2019-09-03 07:55] LABS: HEMATOCRIT. 18.4 % (42.0-52.0)
[2019-09-03] MEDS: ENOXAPARIN 40MG/0.4ML SYR SUBCUT SCH (08:09)
[2019-09-03 08:12] LABS: CREATINE KINASE 1376 IU/L (39-308)
[2019-09-03] MEDS ORDERED: SODIUM CHLORIDE 0.9% 1,000 ML IV SCH (08:15)
[2019-09-03] MEDS: LEVETIRACETAM 750 MG in SODIUM CHLORIDE 0.9% 100 ML IV SCH ×2 (09:36→20:29)
[2019-09-03] MEDS: MIDODRINE HCL 5MG TABLET PO SCH ×3 (09:36→17:32)
[2019-09-03] MEDS: ASPIRIN 81MG EC TABLET PO SCH (09:37)
[2019-09-03] MEDS: FOLIC ACID 1MG TABLET PO SCH (09:37)
[2019-09-03] MEDS: DEXTROSE 5% WATER 1,000 ML IV SCH ×2 (09:38→19:49)
[2019-09-03] MEDS: SODIUM CHLORIDE 0.45% 1,000 ML IV SCH ×2 (09:39→22:30)
[2019-09-03] MEDS ORDERED: POTASSIUM CHLORIDE INJ 40 MEQ in DEXT 5% WATER 250 ML IV NR (11:00)
[2019-09-03 13:15] LABS: INR 1.3; PROTHROMBIN TIME 13.6 sec (9.6-11.0)
[2019-09-03] MEDS ORDERED: DIPHENHYDRAMINE 50MG/ML VIAL IV NR (13:36)
[2019-09-03] MEDS: ACETAMINOPHEN 650MG SUPP PR PRN (13:53)
[2019-09-03] MEDS: FLUCONAZOLE 400MG/200ML BAG 200 ML IV SCH (15:24)
[2019-09-03] MEDS: CEFEPIME 1,000 MG in DEXTROSE 5% WATER 50 ML IV SCH (15:24)
[2019-09-03] MEDS ORDERED: IOHEXOL-350 100 ML BOTTLE ONE (19:14)
[2019-09-03] MEDS: METRONIDAZOLE 500 MG PREMIX 100 ML IV SCH (21:29)
[2019-09-03] MEDS ORDERED: VANCOMYCIN 750 MG PREMIX 150 ML IV SCH (22:00)
[2019-09-04] VITALS (15 sets, daily range): BP systolic 94–115; BP diastolic 53–71
[2019-09-04 00:35] LABS: HEMATOCRIT 26.7 % (42.0-52.0); HEMOGLOBIN 9.2 g/dL (14.0-18.0)
[2019-09-04] MEDS: IPRATROPIUM/ALBUTEROL 0.5-3(2.5)MG/3ML NEB HHN SCH ×4 (01:22→20:50)
[2019-09-04] MEDS: CEFEPIME 1,000 MG in DEXTROSE 5% WATER 50 ML IV SCH ×2 (03:44→15:35)
[2019-09-04] MEDS: DEXTROSE 5% WATER 1,000 ML IV SCH ×2 (05:30→14:57)
[2019-09-04 08:02] LABS: CHLORIDE 119 mEq/L (98-107)
[2019-09-04 08:05] LABS: AMYLASE 128 IU/L (25-115)
[2019-09-04] MEDS: METRONIDAZOLE 500 MG PREMIX 100 ML IV SCH ×2 (08:22→22:01)
[2019-09-04] MEDS: LEVETIRACETAM 750 MG in SODIUM CHLORIDE 0.9% 100 ML IV SCH ×2 (08:22→21:11)
[2019-09-04] MEDS: ASPIRIN 81MG EC TABLET PO SCH (08:24)
[2019-09-04] MEDS: FOLIC ACID 1MG TABLET PO SCH (08:24)
[2019-09-04] MEDS: MIDODRINE HCL 5MG TABLET PO SCH ×3 (08:24→17:01)
[2019-09-04 08:36] LABS: BASOPHILS % 0.4 % (0.0-2.0); EOSINOPHILS % 4.2 % (0.0-5.0); HEMATOCRIT. 24.8 % (42.0-52.0); HEMOGLOBIN. 8.5 g/dL (14.0-18.0); LYMPHOCYTES % 13.7 % (20.0-50.0); MEAN CORPUSCULAR HEMOGLOBIN 31.4 pg (28.0-32.0); MEAN CORPUSCULAR VOLUME 91.8 fL (80.0-94.0); MEAN PLATELET VOLUME 11.9 fl (7.4-10.4); MONOCYTES % 3.7 % (2.0-8.0); RED CELL DISTRIBUTION WIDTH 15.6 % (11.6-14.6)
[2019-09-04 08:59] LABS: PHOSPHORUS 2.9 mg/dL (2.5-4.9)
[2019-09-04] MEDS: SODIUM CHLORIDE 0.45% 1,000 ML IV SCH (11:54)
[2019-09-04 13:02] LABS: HEMATOCRIT 24.4 % (42.0-52.0); HEMOGLOBIN 8.2 g/dL (14.0-18.0)
[2019-09-04] MEDS: FLUCONAZOLE 400MG/200ML BAG 200 ML IV SCH (14:53)
[2019-09-04] MEDS ORDERED: POTASSIUM CHLORIDE INJ 40 MEQ in DEXT 5% WATER 250 ML IV NR (16:30)
[2019-09-04 20:40] LABS: HEMATOCRIT 25.2 % (42.0-52.0); HEMOGLOBIN 8.8 g/dL (14.0-18.0)
[2019-09-05] VITALS (15 sets, daily range): BP systolic 93–120; BP diastolic 58–85
[2019-09-05 00:49] LABS: HEMATOCRIT 24.9 % (42.0-52.0); HEMOGLOBIN 8.5 g/dL (14.0-18.0)
[2019-09-05] MEDS: IPRATROPIUM/ALBUTEROL 0.5-3(2.5)MG/3ML NEB HHN SCH ×4 (02:23→19:58)
[2019-09-05] MEDS: CEFEPIME 1,000 MG in DEXTROSE 5% WATER 50 ML IV SCH ×2 (04:07→15:02)
[2019-09-05] MEDS: SODIUM CHLORIDE 0.45% 1,000 ML IV SCH ×2 (04:13→17:19)
[2019-09-05 06:22] LABS: HEMATOCRIT 24.3 % (42.0-52.0); HEMOGLOBIN 8.4 g/dL (14.0-18.0)
[2019-09-05] MEDS: DEXTROSE 5% WATER 1,000 ML IV SCH ×3 (06:33→21:19)
[2019-09-05 07:12] LABS: AMYLASE 71 IU/L (25-115)
[2019-09-05] MEDS: MIDODRINE HCL 5MG TABLET PO SCH ×3 (09:04→17:18)
[2019-09-05] MEDS: METRONIDAZOLE 500 MG PREMIX 100 ML IV SCH ×2 (09:04→21:59)
[2019-09-05] MEDS: LEVETIRACETAM 750 MG in SODIUM CHLORIDE 0.9% 100 ML IV SCH ×2 (09:04→21:15)
[2019-09-05] MEDS: FOLIC ACID 1MG TABLET PO SCH (09:04)
[2019-09-05 12:49] LABS: HEMATOCRIT 26.3 % (42.0-52.0); HEMOGLOBIN 9.1 g/dL (14.0-18.0)
[2019-09-05] MEDS ORDERED: POTASSIUM CHLORIDE INJ 40 MEQ in DEXT 5% WATER 250 ML IV SCH (14:00)
[2019-09-05] MEDS: FLUCONAZOLE 400MG/200ML BAG 200 ML IV SCH (15:03)
[2019-09-06] VITALS (14 sets, daily range): BP systolic 92–120; BP diastolic 49–80
[2019-09-06] MEDS: IPRATROPIUM/ALBUTEROL 0.5-3(2.5)MG/3ML NEB HHN SCH ×4 (02:04→21:42)
[2019-09-06] MEDS: CEFEPIME 1,000 MG in DEXTROSE 5% WATER 50 ML IV SCH ×2 (03:51→16:06)
[2019-09-06 08:15] LABS: HEMATOCRIT. 28.2 % (42.0-52.0); HEMOGLOBIN. 9.9 g/dL (14.0-18.0); MEAN CORPUSCULAR VOLUME 91.5 fL (80.0-94.0); MEAN PLATELET VOLUME 11.6 fl (7.4-10.4); PLATELET 100 x1000/uL (130-400); RED BLOOD CELL COUNT 3.08 mill/uL (4.7-6.1); RED CELL DISTRIBUTION WIDTH 14.9 % (11.6-14.6)
[2019-09-06] MEDS: DEXTROSE 5% WATER 1,000 ML IV SCH ×3 (08:27→17:47)
[2019-09-06] MEDS: METRONIDAZOLE 500 MG PREMIX 100 ML IV SCH ×2 (08:32→21:02)
[2019-09-06 08:34] LABS: CHLORIDE 110 mEq/L (98-107)
[2019-09-06] MEDS: SODIUM CHLORIDE 0.45% 1,000 ML IV SCH ×2 (08:37→16:16)
[2019-09-06 08:43] LABS: AMYLASE 69 IU/L (25-115)
[2019-09-06] MEDS: FOLIC ACID 1MG TABLET PO SCH (09:24)
[2019-09-06] MEDS: MIDODRINE HCL 5MG TABLET PO SCH ×3 (09:24→16:06)
[2019-09-06] MEDS: LEVETIRACETAM 750 MG in SODIUM CHLORIDE 0.9% 100 ML IV SCH ×2 (09:25→22:22)
[2019-09-06 12:15] LABS: PLATELET ESTIMATE SLIGHTL
[2019-09-06 12:32] LABS: PLATELET 47 x1000/uL (130-400)
[2019-09-06] MEDS: ONDANSETRON HCL 4MG/2ML INJ IV PRN (21:01)
[2019-09-07] VITALS (12 sets, daily range): BP systolic 85–108; BP diastolic 46–73
[2019-09-07] MEDS: IPRATROPIUM/ALBUTEROL 0.5-3(2.5)MG/3ML NEB HHN SCH ×4 (02:40→21:15)
[2019-09-07] MEDS: DEXTROSE 5% WATER 1,000 ML IV SCH ×2 (03:51→23:59)
[2019-09-07] MEDS: CEFEPIME 1,000 MG in DEXTROSE 5% WATER 50 ML IV SCH ×2 (03:51→16:29)
[2019-09-07] MEDS: SODIUM CHLORIDE 0.45% 1,000 ML IV SCH ×2 (04:24→20:10)
[2019-09-07 06:22] LABS: BASOPHILS % 0.2 % (0.0-2.0); EOSINOPHILS % 0.3 % (0.0-5.0); HEMATOCRIT. 29.1 % (42.0-52.0); HEMOGLOBIN. 9.9 g/dL (14.0-18.0); LYMPHOCYTES % 8.4 % (20.0-50.0); MEAN CORPUSCULAR HEMOGLOBIN 31.5 pg (28.0-32.0); MEAN CORPUSCULAR VOLUME 92.5 fL (80.0-94.0); MEAN PLATELET VOLUME 10.8 fl (7.4-10.4); MONOCYTES % 5.7 % (2.0-8.0); NEUTROPHILS % 85.4 % (40.0-76.0); PLATELET 123 x1000/uL (130-400); RED BLOOD CELL COUNT 3.15 mill/uL (4.7-6.1); RED CELL DISTRIBUTION WIDTH 15.3 % (11.6-14.6)
[2019-09-07 06:59] LABS: CHLORIDE 112 mEq/L (98-107)
[2019-09-07 07:10] LABS: AMYLASE 107 IU/L (25-115)
[2019-09-07] MEDS: METRONIDAZOLE 500 MG PREMIX 100 ML IV SCH ×2 (08:11→21:43)
[2019-09-07] MEDS: FOLIC ACID 1MG TABLET PO SCH (08:11)
[2019-09-07] MEDS: MIDODRINE HCL 5MG TABLET PO SCH ×3 (08:12→16:29)
[2019-09-07] MEDS: LEVETIRACETAM 750 MG in SODIUM CHLORIDE 0.9% 100 ML IV SCH ×2 (10:33→20:53)
[2019-09-07] MEDS ORDERED: DIATR MEGLU/DIATRIZOATE SOLN 30ML ONE (14:07)
[2019-09-08] VITALS (34 sets, daily range): BP systolic 86–113; BP diastolic 44–92
[2019-09-08] MEDS: IPRATROPIUM/ALBUTEROL 0.5-3(2.5)MG/3ML NEB HHN SCH ×3 (03:06→20:12)
[2019-09-08] MEDS: CEFEPIME 1,000 MG in DEXTROSE 5% WATER 50 ML IV SCH ×2 (04:47→17:23)
[2019-09-08] MEDS ORDERED: NORMAL SALINE 0.9% 10 ML SYR ONE (07:33)
[2019-09-08] MEDS ORDERED: BUPIVACAINE HCL 0.5% (5MG/ML) 50ML ONE (07:33)
[2019-09-08] MEDS ORDERED: BACITRACIN 50,000 UNITS/VIAL ONE (07:33)
[2019-09-08 07:57] LABS: CHLORIDE 110 mEq/L (98-107)
[2019-09-08 07:58] LABS: BASOPHILS % 0.2 % (0.0-2.0); HEMATOCRIT. 24.5 % (42.0-52.0); HEMOGLOBIN. 8.3 g/dL (14.0-18.0); LYMPHOCYTES % 13.7 % (20.0-50.0); MEAN CORPUSCULAR HEMOGLOBIN 31.3 pg (28.0-32.0); MEAN PLATELET VOLUME 10.4 fl (7.4-10.4); MONOCYTES % 8.9 % (2.0-8.0); NEUTROPHILS % 76.2 % (40.0-76.0); PLATELET 127 x1000/uL (130-400); RED BLOOD CELL COUNT 2.66 mill/uL (4.7-6.1); RED CELL DISTRIBUTION WIDTH 15.4 % (11.6-14.6)
[2019-09-08] MEDS: SODIUM CHLORIDE 0.45% 1,000 ML IV SCH (08:30)
[2019-09-08] MEDS: METRONIDAZOLE 500 MG PREMIX 100 ML IV SCH ×2 (09:00→20:15)
[2019-09-08] MEDS: MIDODRINE HCL 5MG TABLET PO SCH ×3 (09:00→17:00)
[2019-09-08] MEDS: FOLIC ACID 1MG TABLET PO SCH (09:00)
[2019-09-08] MEDS: LEVETIRACETAM 750 MG in SODIUM CHLORIDE 0.9% 100 ML IV SCH ×2 (09:00→22:09)
[2019-09-08] MEDS ORDERED: PROPOFOL 200MG/20ML VIAL IV ONE (09:07)
[2019-09-08] MEDS: DEXTROSE 5% WATER 1,000 ML IV SCH ×2 (09:11→22:09)
[2019-09-08] MEDS ORDERED: ROCURONIUM BROMIDE 10MG/ML VIAL 5ML IV ONE (09:20)
[2019-09-08] MEDS ORDERED: LIDOCAINE HCL/PF 1% 10 MG/ML 5ML VIAL ONE (09:22)
[2019-09-08] MEDS ORDERED: MIDAZOLAM HCL 2 MG/2 ML VIAL ONE (09:51)
[2019-09-08] MEDS ORDERED: METHYLENE BLUE 50 MG/10 ML AMP IV ONE (09:56)
[2019-09-08] MEDS ORDERED: ONDANSETRON HCL 4MG/2ML INJ ONE (10:07)
[2019-09-08] MEDS ORDERED: DEXAMETHASONE 4MG/ML 1ML VIAL ONE (10:07)
[2019-09-08] MEDS ORDERED: KCL 20MEQ/100ML PREMIX 100 ML IV ONE (10:50)
[2019-09-08 11:08] LABS: BG BASE EXCESS -1.9 mmol/L (-2.0-2.0); BG CARBOXYHEMOGLOBIN 0.2 % (0.5-1.5); BG FRACTION INSPIRED OXYGEN 40; BG HCO3 ACT 21.1 mmol/L (22.0-26.0); BG METHEMOGLOBIN 0.4 % (0.0-1.5); BG OXYHEMOGLOBIN 98.4 % (94.0-97.0); BG PCO2 29.7 mmHg (35.0-45.0); BG PRESSURE SUPPORT 10; BG SAMPLE SITE RIGHT RADIAL; BG TIDAL VOLUME(mL) 500 mL; BG TOTAL HEMOGLOBIN 9.2 g/dL (12.0-18.0); BG VENT MODE VENT - SIMV; BG VENT RATE 10 set
[2019-09-08] MEDS ORDERED: POTASSIUM CHLORIDE INJ 40 MEQ in DEXT 5% WATER 250 ML IV ONE (12:30)
[2019-09-08 17:01] LABS: HEMOGLOBIN 7.2 g/dL (14.0-18.0); MEAN CORPUSCULAR HEMOGLOBIN 30.7 pg (28.0-32.0); MEAN CORPUSCULAR VOLUME 102.4 fL (80.0-94.0); PLATELET 108 x1000/uL (130-400); RED BLOOD CELL COUNT 2.35 mill/uL (4.7-6.1); RED CELL DISTRIBUTION WIDTH 17.2 % (11.6-14.6)
[2019-09-09] VITALS (47 sets, daily range): BP systolic 97–122; BP diastolic 45–76
[2019-09-09] MEDS: IPRATROPIUM/ALBUTEROL 0.5-3(2.5)MG/3ML NEB HHN SCH ×4 (00:31→20:27)
[2019-09-09] MEDS: ACETAMINOPHEN 650MG SUPP PR PRN (01:18)
[2019-09-09 06:11] LABS: HEMATOCRIT. 29.1 % (42.0-52.0); HEMOGLOBIN. 9.9 g/dL (14.0-18.0); MEAN CORPUSCULAR HEMOGLOBIN 32.2 pg (28.0-32.0); MEAN CORPUSCULAR VOLUME 94.3 fL (80.0-94.0); MEAN PLATELET VOLUME 10.2 fl (7.4-10.4); PLATELET 168 x1000/uL (130-400); RED BLOOD CELL COUNT 3.08 mill/uL (4.7-6.1); RED CELL DISTRIBUTION WIDTH 15.6 % (11.6-14.6)
[2019-09-09 06:19] LABS: CHLORIDE 110 mEq/L (98-107)
[2019-09-09 07:04] LABS: PLATELET ESTIMATE NORMAL
[2019-09-09] MEDS: LEVETIRACETAM 750 MG in SODIUM CHLORIDE 0.9% 100 ML IV SCH ×2 (08:14→21:20)
[2019-09-09] MEDS: FOLIC ACID 1MG TABLET PO SCH (08:14)
[2019-09-09] MEDS: MIDODRINE HCL 5MG TABLET PO SCH ×3 (08:15→16:24)
[2019-09-09 09:44] LABS: BG BASE EXCESS 0.2 mmol/L (-2.0-2.0); BG CARBOXYHEMOGLOBIN 0.3 % (0.5-1.5); BG DEOXYHEMOGLOBIN 1.1 % (0.0-5.0); BG FRACTION INSPIRED OXYGEN 35; BG METHEMOGLOBIN 0.2 % (0.0-1.5); BG OXYGEN SATURATION 98.9 % (92.0-98.5); BG OXYHEMOGLOBIN 98.4 % (94.0-97.0); BG PH 7.502 (7.350-7.450); BG PO2 148.8 mmHg (75.0-100.0); BG PRESSURE SUPPORT 8; BG SAMPLE SITE RIGHT RADIAL; BG TOTAL HEMOGLOBIN 8.6 g/dL (12.0-18.0); BG VENT MODE VENT - CPAP
[2019-09-09] MEDS: DEXTROSE 5% WATER 1,000 ML IV SCH (11:23)
[2019-09-09] MEDS ORDERED: [UNRECOGNIZED DRUG - REMARK] XX SCH (14:15)
[2019-09-09] MEDS: CEFEPIME 1,000 MG in DEXTROSE 5% WATER 50 ML IV SCH (15:48)
[2019-09-09] MEDS: METRONIDAZOLE 500 MG PREMIX 100 ML IV SCH (16:34)
[2019-09-10] VITALS (43 sets, daily range): BP systolic 81–128; BP diastolic 57–81
[2019-09-10] MEDS: DEXTROSE 5% WATER 1,000 ML IV SCH ×2 (00:23→14:18)
[2019-09-10] MEDS: IPRATROPIUM/ALBUTEROL 0.5-3(2.5)MG/3ML NEB HHN SCH ×4 (02:40→20:15)
[2019-09-10] MEDS: CEFEPIME 1,000 MG in DEXTROSE 5% WATER 50 ML IV SCH ×2 (03:21→16:36)
[2019-09-10] MEDS: METRONIDAZOLE 500 MG PREMIX 100 ML IV SCH ×2 (05:15→16:36)
[2019-09-10 06:55] LABS: BASOPHILS % 0.1 % (0.0-2.0); EOSINOPHILS % 0.3 % (0.0-5.0); HEMATOCRIT. 26.5 % (42.0-52.0); HEMOGLOBIN. 8.9 g/dL (14.0-18.0); LYMPHOCYTES % 16.5 % (20.0-50.0); MEAN CORPUSCULAR HEMOGLOBIN 31.1 pg (28.0-32.0); MEAN CORPUSCULAR VOLUME 92.4 fL (80.0-94.0); MEAN PLATELET VOLUME 9.5 fl (7.4-10.4); NEUTROPHILS % 70.1 % (40.0-76.0); PLATELET 201 x1000/uL (130-400); RED BLOOD CELL COUNT 2.87 mill/uL (4.7-6.1); RED CELL DISTRIBUTION WIDTH 15.4 % (11.6-14.6)
[2019-09-10 07:03] LABS: CHLORIDE 108 mEq/L (98-107)
[2019-09-10 07:09] LABS: PHOSPHORUS 2.6 mg/dL (2.5-4.9)
[2019-09-10] MEDS: FOLIC ACID 1MG TABLET PO SCH (09:00)
[2019-09-10] MEDS: MIDODRINE HCL 5MG TABLET PO SCH ×3 (09:00→16:36)
[2019-09-10] MEDS: LEVETIRACETAM 750 MG in SODIUM CHLORIDE 0.9% 100 ML IV SCH ×2 (09:23→21:12)
[2019-09-10] MEDS ORDERED: KCL 20MEQ/100ML PREMIX 100 ML IV SCH (10:00)
[2019-09-11] VITALS (46 sets, daily range): BP systolic 80–123; BP diastolic 33–83
[2019-09-11] MEDS: IPRATROPIUM/ALBUTEROL 0.5-3(2.5)MG/3ML NEB HHN SCH ×4 (01:00→20:24)
[2019-09-11] MEDS: CEFEPIME 1,000 MG in DEXTROSE 5% WATER 50 ML IV SCH ×2 (03:30→14:59)
[2019-09-11] MEDS: METRONIDAZOLE 500 MG PREMIX 100 ML IV SCH ×2 (04:30→16:31)
[2019-09-11 06:11] LABS: CHLORIDE 103 mEq/L (98-107)
[2019-09-11 06:24] LABS: BASOPHILS % 0.3 % (0.0-2.0); EOSINOPHILS % 0.9 % (0.0-5.0); HEMATOCRIT. 26.5 % (42.0-52.0); HEMOGLOBIN. 8.7 g/dL (14.0-18.0); LYMPHOCYTES % 17.3 % (20.0-50.0); MEAN CORPUSCULAR HEMOGLOBIN 30.8 pg (28.0-32.0); MEAN CORPUSCULAR VOLUME 93.3 fL (80.0-94.0); MEAN PLATELET VOLUME 9.5 fl (7.4-10.4); MONOCYTES % 13.2 % (2.0-8.0); NEUTROPHILS % 68.3 % (40.0-76.0); PLATELET 200 x1000/uL (130-400); RED BLOOD CELL COUNT 2.84 mill/uL (4.7-6.1); RED CELL DISTRIBUTION WIDTH 15.3 % (11.6-14.6)
[2019-09-11] MEDS: LEVETIRACETAM 750 MG in SODIUM CHLORIDE 0.9% 100 ML IV SCH ×2 (08:22→23:35)
[2019-09-11] MEDS: FOLIC ACID 1MG TABLET PO SCH (08:23)
[2019-09-11] MEDS: DEXTROSE 5% WATER 1,000 ML IV SCH (08:23)
[2019-09-11] MEDS: MIDODRINE HCL 5MG TABLET PO SCH ×3 (08:23→16:28)
[2019-09-12] VITALS (14 sets, daily range): BP systolic 99–149; BP diastolic 52–84
[2019-09-12] MEDS: IPRATROPIUM/ALBUTEROL 0.5-3(2.5)MG/3ML NEB HHN SCH ×4 (02:28→21:02)
[2019-09-12] MEDS: ONDANSETRON HCL 4MG/2ML INJ IV PRN (03:30)
[2019-09-12] MEDS: CEFEPIME 1,000 MG in DEXTROSE 5% WATER 50 ML IV SCH ×2 (03:33→15:29)
[2019-09-12] MEDS: METRONIDAZOLE 500 MG PREMIX 100 ML IV SCH ×2 (05:01→16:34)
[2019-09-12 06:29] LABS: CHLORIDE 103 mEq/L (98-107)
[2019-09-12 06:30] LABS: BASOPHILS % 0.3 % (0.0-2.0); EOSINOPHILS % 0.9 % (0.0-5.0); HEMOGLOBIN. 8.6 g/dL (14.0-18.0); LYMPHOCYTES % 13.9 % (20.0-50.0); MEAN CORPUSCULAR HEMOGLOBIN 31.5 pg (28.0-32.0); MEAN CORPUSCULAR VOLUME 91.7 fL (80.0-94.0); MEAN PLATELET VOLUME 9.2 fl (7.4-10.4); MONOCYTES % 10.7 % (2.0-8.0); NEUTROPHILS % 74.2 % (40.0-76.0); PLATELET 196 x1000/uL (130-400); RED BLOOD CELL COUNT 2.72 mill/uL (4.7-6.1); RED CELL DISTRIBUTION WIDTH 14.9 % (11.6-14.6)
[2019-09-12] MEDS: LEVETIRACETAM 750 MG in SODIUM CHLORIDE 0.9% 100 ML IV SCH ×2 (08:47→21:43)
[2019-09-12] MEDS: FOLIC ACID 1MG TABLET PO SCH (08:49)
[2019-09-12] MEDS: MIDODRINE HCL 5MG TABLET PO SCH ×3 (08:49→16:31)
[2019-09-12] MEDS ORDERED: POTASSIUM CHLORIDE INJ 40 MEQ in DEXT 5% WATER 250 ML IV NR (11:00)
[2019-09-12] MEDS: DEXTROSE 5% WATER 1,000 ML IV SCH ×2 (12:26→16:35)
[2019-09-13] VITALS (12 sets, daily range): BP systolic 100–132; BP diastolic 59–85
[2019-09-13] MEDS: IPRATROPIUM/ALBUTEROL 0.5-3(2.5)MG/3ML NEB HHN SCH (02:29)
[2019-09-13] MEDS: CEFEPIME 1,000 MG in DEXTROSE 5% WATER 50 ML IV SCH ×2 (03:48→15:32)
[2019-09-13] MEDS: DEXTROSE 5% WATER 1,000 ML IV SCH ×2 (03:51→13:31)
[2019-09-13] MEDS: METRONIDAZOLE 500 MG PREMIX 100 ML IV SCH ×2 (05:39→18:00)
[2019-09-13 06:57] LABS: BASOPHILS % 0.4 % (0.0-2.0); EOSINOPHILS % 1.8 % (0.0-5.0); HEMATOCRIT. 27.3 % (42.0-52.0); HEMOGLOBIN. 9.1 g/dL (14.0-18.0); MEAN CORPUSCULAR HEMOGLOBIN 31.3 pg (28.0-32.0); MEAN CORPUSCULAR VOLUME 93.4 fL (80.0-94.0); MONOCYTES % 11.4 % (2.0-8.0); NEUTROPHILS % 66.4 % (40.0-76.0); PLATELET 205 x1000/uL (130-400); RED BLOOD CELL COUNT 2.92 mill/uL (4.7-6.1)
[2019-09-13 07:17] LABS: CHLORIDE 108 mEq/L (98-107)
[2019-09-13] MEDS: FOLIC ACID 1MG TABLET PO SCH (09:00)
[2019-09-13] MEDS: MIDODRINE HCL 5MG TABLET PO SCH ×3 (09:00→16:38)
[2019-09-13] MEDS: LEVETIRACETAM 750 MG in SODIUM CHLORIDE 0.9% 100 ML IV SCH ×2 (11:23→21:56)
[2019-09-14] VITALS (12 sets, daily range): BP systolic 100–126; BP diastolic 55–77
[2019-09-14] MEDS: DEXTROSE 5% WATER 1,000 ML IV SCH ×2 (00:09→09:05)
[2019-09-14] MEDS: CEFEPIME 1,000 MG in DEXTROSE 5% WATER 50 ML IV SCH (04:12)
[2019-09-14] MEDS: LORAZEPAM 2MG/ML CPJ IV PRN ×2 (04:17→09:28)
[2019-09-14] MEDS: METRONIDAZOLE 500 MG PREMIX 100 ML IV SCH (05:11)
[2019-09-14 06:55] LABS: BASOPHILS % 0.5 % (0.0-2.0); EOSINOPHILS % 1.5 % (0.0-5.0); HEMATOCRIT. 26.7 % (42.0-52.0); LYMPHOCYTES % 16.8 % (20.0-50.0); MEAN CORPUSCULAR HEMOGLOBIN 31.3 pg (28.0-32.0); MEAN CORPUSCULAR VOLUME 92.7 fL (80.0-94.0); MEAN PLATELET VOLUME 9.4 fl (7.4-10.4); MONOCYTES % 11.7 % (2.0-8.0); NEUTROPHILS % 69.5 % (40.0-76.0); PLATELET 211 x1000/uL (130-400); RED BLOOD CELL COUNT 2.88 mill/uL (4.7-6.1)
[2019-09-14 06:56] LABS: CHLORIDE 106 mEq/L (98-107)
[2019-09-14] MEDS: MIDODRINE HCL 5MG TABLET PO SCH ×2 (09:04→12:27)
[2019-09-14] MEDS: LEVETIRACETAM 750 MG in SODIUM CHLORIDE 0.9% 100 ML IV SCH ×2 (09:04→21:16)
[2019-09-14] MEDS: FOLIC ACID 1MG TABLET PO SCH (09:04)
[2019-09-14] MEDS ORDERED: POTASSIUM CHLORIDE INJ 40 MEQ in DEXT 5% WATER 250 ML IV SCH (10:00)
[2019-09-14] MEDS: ENOXAPARIN 40MG/0.4ML SYR SUBCUT SCH (21:17)
[2019-09-15] VITALS (10 sets, daily range): BP systolic 96–131; BP diastolic 50–88
[2019-09-15] MEDS: DEXTROSE 5% WATER 1,000 ML IV SCH ×2 (05:31→06:09)
[2019-09-15] MEDS: LEVETIRACETAM 750 MG in SODIUM CHLORIDE 0.9% 100 ML IV SCH (08:07)
[2019-09-15 12:42] LABS: BASOPHILS % 0.7 % (0.0-2.0); EOSINOPHILS % 2.4 % (0.0-5.0); HEMOGLOBIN. 9.2 g/dL (14.0-18.0); MEAN CORPUSCULAR HEMOGLOBIN 31.5 pg (28.0-32.0); MEAN CORPUSCULAR VOLUME 92.6 fL (80.0-94.0); MEAN PLATELET VOLUME 8.8 fl (7.4-10.4); MONOCYTES % 10.3 % (2.0-8.0); NEUTROPHILS % 63.6 % (40.0-76.0); PLATELET 218 x1000/uL (130-400); RED BLOOD CELL COUNT 2.92 mill/uL (4.7-6.1)
[2019-09-15 12:49] LABS: CHLORIDE 107 mEq/L (98-107)
== END 2019-09-15 16:40 | DRG 710 ==
LOC: ER 18:13 → CVICU 21:08 → EDBEDREQ 21:10 → EDBEDREQTM 21:10 → EDBEDREQ 08-14 07:50 → EDBEDREQTM 08-15 07:22 → EDBEDREQDT 08-15 07:22 → EDBEDREQ 08-15 07:37 → ENRESERV 08-15 20:08 → 6WST 08-19 00:22 → 3WST 09-02 13:24 → CVICU 09-08 10:23 → 5EST 09-12 01:45
PROVIDERS: ADMIT Internal Medicine; ATTEND Internal Medicine
PROC: 5A1945Z Respiratory Ventilation, 24-96 Consecutive Hours (ICD-10-PCS; principal; 2019-08-12)
PROC: 0BH17EZ Insertion of Endotracheal Airway into Trachea, Via Natural or Artificial Opening (ICD-10-PCS; 2019-08-12)
PROC: 05HY33Z Insertion of Infusion Device into Upper Vein, Percutaneous Approach (ICD-10-PCS; 2019-08-12)
PROC: B54MZZA Ultrasonography of Right Upper Extremity Veins, Guidance (ICD-10-PCS; 2019-08-12)
PROC: 4A00X4Z Measurement of Central Nervous Electrical Activity, External Approach (ICD-10-PCS; 2019-08-17)
PROC: 0DH63UZ Insertion of Feeding Device into Stomach, Percutaneous Approach (ICD-10-PCS; 2019-08-25)
PROC: 02HV33Z Insertion of Infusion Device into Superior Vena Cava, Percutaneous Approach (ICD-10-PCS; 2019-09-02)
PROC: B548ZZA Ultrasonography of Superior Vena Cava, Guidance (ICD-10-PCS; 2019-09-02)
PROC: 30233N1 Transfusion of Nonautologous Red Blood Cells into Peripheral Vein, Percutaneous Approach (ICD-10-PCS; 2019-09-03)
PROC: 0DN80ZZ Release Small Intestine, Open Approach (ICD-10-PCS; 2019-09-08)
DX: A41.9 Sepsis, unspecified organism (principal); J96.01 Acute respiratory failure with hypoxia; R65.21 Severe sepsis with septic shock; G93.40 Encephalopathy, unspecified; J18.9 Pneumonia, unspecified organism; K85.90 Acute pancreatitis without necrosis or infection, unspecified; K56.50 Intestinal adhesions [bands], unspecified as to partial versus complete obstruction; L89.223 Pressure ulcer of left hip, stage 3; R13.12 Dysphagia, oropharyngeal phase; D69.6 Thrombocytopenia, unspecified; E87.0 Hyperosmolality and hypernatremia; E86.0 Dehydration; E87.2 Acidosis; I51.7 Cardiomegaly; D64.9 Anemia, unspecified; J98.11 Atelectasis; E44.1 Mild protein-calorie malnutrition; E87.6 Hypokalemia; F79 Unspecified intellectual disabilities; H54.8 Legal blindness, as defined in USA; K52.9 Noninfective gastroenteritis and colitis, unspecified; R47.02 Dysphasia; K62.89 Other specified diseases of anus and rectum; J93.82 Other air leak; L89.320 Pressure ulcer of left buttock, unstageable; M62.82 Rhabdomyolysis; M24.452 Recurrent dislocation, left hip; Z20.828 Contact with and (suspected) exposure to other viral communicable diseases; M24.451 Recurrent dislocation, right hip; Z68.1 Body mass index [BMI] 19.9 or less, adult; Z74.01 Bed confinement status; Z87.01 Personal history of pneumonia (recurrent); Z79.899 Other long term (current) drug therapy
CPT/HCPCS: 36415; 36600; 71045; 74018; 74174; 74176; 76700; 76937; 80048; 80053; 80076; 80185; 80202; 80305; 80320; 81003; 82040; 82150; 82247; 82248; 82270; 82375; 82550; 82805; 82962; 83605; 83735; 84100; 84132; 84134; 84145; 84484; 85014; 85018; 85025; 85027; 86850; 86900; 86920; 87070; 92610; 93005; 93306; 93970; 94002; 94003; 94640; 99152; 99291; C1725; J0330; J0456; J0690; J0692; J0696; J1100; J1160; J1165; J1200; J1450; J1650; J1953; J2060; J2250; J2405; J2543; J2704; J2710; J2765; J3010; J3370; J3480; J3490; J7030; J7042; J7050; J7060; J7070; J7608; P9016; Q9963; Q9967; Q9968; U0003; G0480

== ENCOUNTER 2019-12-04 09:37 | Emergency (ER) | payer MEDICAID ==
[~2019-12-04] VITALS: Ht 165.1 cm; Wt 40.0 kg
[2019-12-04 14:12] VITALS: BP 100/59
== END 2019-12-04 14:14 | disposition home or self-care (01) ==
LOC: ER 09:48
DX: Z43.1 Encounter for attention to gastrostomy (principal); R50.9 Fever, unspecified; R19.7 Diarrhea, unspecified; R11.10 Vomiting, unspecified; G40.909 Epilepsy, unspecified, not intractable, without status epilepticus
CPT/HCPCS: 99283

== ENCOUNTER 2020-02-03 11:28 | Emergency (ER) | payer MEDICAID ==
[~2020-02-03] VITALS: Ht 170.2 cm; Wt 50.0 kg
[2020-02-03] MEDS ORDERED: DIATR MEGLU/DIATRIZOATE SOLN 30ML ONE (12:37)
[2020-02-03 14:00] VITALS: BP 96/45
[2020-02-03] MEDS ORDERED: SODIUM CHLORIDE 0.9% 500 ML IV ONE (14:30)
== END 2020-02-03 19:26 | disposition home or self-care (01) ==
LOC: ER 11:33
DX: K94.23 Gastrostomy malfunction (principal); I95.9 Hypotension, unspecified; G40.909 Epilepsy, unspecified, not intractable, without status epilepticus; R62.50 Unspecified lack of expected normal physiological development in childhood; Z74.01 Bed confinement status
CPT/HCPCS: 43762; 74018; 93005; 96360; 99284; J7030; Q9963; 99283

== ENCOUNTER 2020-04-20 11:18 | Inpatient (IN) | payer MEDICAID ==
[~2020-04-20] VITALS: Ht 177.8 cm; Wt 59.0 kg
[2020-04-20] MEDS ORDERED: SODIUM CHLORIDE 0.9% 1000ML BAG (SEPSIS BOLUS) IV ONE (12:15)
[2020-04-20] MEDS ORDERED: PIPERACILLIN/TAZ 3.375G PREMIX 50 ML IV ONE (12:15)
[2020-04-20 12:47] LABS: CLARITY URINE CLOUDY (CLEAR); COLOR URINE ORANGE (YELLOW); KETONES URINE TRACE (NEGATIVE); LEUKOCYTE ESTERASE URINE 2+ (NEGATIVE); NITRITE URINE POSITIVE (NEGATIVE); OCCULT BLOOD URINE NEGATIVE (NEGATIVE); PROTEIN URINE 1+ (NEGATIVE)
[2020-04-20 12:50] LABS: BG BASE EXCESS 1.3 mmol/L (-2.0-2.0); BG CARBOXYHEMOGLOBIN 0.3 % (0.5-1.5); BG DEOXYHEMOGLOBIN 5.4 % (0.0-5.0); BG METHEMOGLOBIN 0.2 % (0.0-1.5); BG OXYGEN SATURATION 94.6 % (92.0-98.5); BG OXYHEMOGLOBIN 94.1 % (94.0-97.0); BG PCO2 41.7 mmHg (35.0-45.0); BG PH 7.413 (7.350-7.450); BG PO2 78.3 mmHg (75.0-100.0); BG SAMPLE SITE RIGHT RADIAL; BG TOTAL HEMOGLOBIN 10.7 g/dL (12.0-18.0); BG VENT MODE ROOM AIR
[2020-04-20 13:07] LABS: *AMPHETAMINES SCREEN URINE NEGATIVE (NEGATIVE); *BARBITURATES SCREEN URINE PRESUMTIVE POSITIVE (NEGATIVE); *BENZODIAZEPINES SCREEN URINE NEGATIVE (NEGATIVE); *COCAINE SCREEN URINE NEGATIVE (NEGATIVE); METHADONE URINE SCREEN NEGATIVE (NEGATIVE); OPIATES URINE SCREEN NEGATIVE (NEGATIVE)
[2020-04-20 13:08] LABS: CANNABINOID URINE SCREEN NEGATIVE (NEGATIVE); PHENCYCLIDINE URINE SCREEN NEGATIVE (NEGATIVE)
[2020-04-20 14:16] LABS: CHLORIDE 115 mEq/L (98-107); HEMATOCRIT. 33.3 % (42.0-52.0); HEMOGLOBIN. 11.2 g/dL (14.0-18.0); MEAN CORPUSCULAR HEMOGLOBIN 32.1 pg (28.0-32.0); MEAN CORPUSCULAR VOLUME 95.7 fL (80.0-94.0); MEAN PLATELET VOLUME 7.7 fl (7.4-10.4); PLATELET 259 x1000/uL (130-400); RED BLOOD CELL COUNT 3.48 mill/uL (4.7-6.1); RED CELL DISTRIBUTION WIDTH 19.6 % (11.6-14.6)
[2020-04-20 14:17] LABS: INR 1.1; PROTHROMBIN TIME 11.6 sec (9.6-11.0)
[2020-04-20 14:21] LABS: ETHANOL BLOOD < 10 mg/dL
[2020-04-20 14:25] LABS: CREATINE KINASE 64 IU/L (39-308)
[2020-04-20 15:01] LABS: PLATELET ESTIMATE NORMAL
[2020-04-20] MEDS ORDERED: LEVOFLOXACIN 500MG PREMIX 100 ML IV ONE (15:15)
[2020-04-20] MEDS ORDERED: CLONIDINE 0.1MG TABLET PO PRN (15:45)
[2020-04-20] MEDS ORDERED: ONDANSETRON HCL 4MG/2ML INJ IV PRN (15:45)
[2020-04-20] MEDS ORDERED: LEVOFLOXACIN 500MG PREMIX 100 ML IV SCH (16:30)
[2020-04-20] MEDS ORDERED: LORAZEPAM 2MG/ML CPJ IV PRN (17:15)
[2020-04-20] MEDS: DEXT 5%/0.45% NACL 1000ML 1,000 ML IV SCH (17:40)
[2020-04-20] MEDS ORDERED: LEVETIRACETAM 500MG PREMIX 100 ML IV SCH (18:00)
[2020-04-20] MEDS ORDERED: LEVETIRACETAM 500 MG in SODIUM CHLORIDE 0.9% 100 ML IV SCH (18:30)
[2020-04-20] MEDS ORDERED: PIPERACILLIN/TAZ 3.375G PREMIX 50 ML IV SCH (18:45)
[2020-04-20 23:52] LABS: CREATINE KINASE MB FRACTION 1.5 ng/mL (0.5-3.6)
[2020-04-21] VITALS (12 sets, daily range): BP systolic 84–113; BP diastolic 38–70
[2020-04-21] MEDS: PIPERACILLIN/TAZOBACTAM 3.375 G in DEXT 5% WATER 100 ML IV SCH ×2 (05:25→13:04)
[2020-04-21] MEDS ORDERED: PHEN64.8 MT (06:05)
[2020-04-21] MEDS ORDERED: MULT-1146 MT (06:05)
[2020-04-21] MEDS ORDERED: LEVE750T66 MT (06:05)
[2020-04-21] MEDS: DEXT 5%/0.45% NACL 1000ML 1,000 ML IV SCH (08:46)
[2020-04-21] MEDS ORDERED: LEVETIRACETAM 500MG PREMIX 100 ML IV SCH ×2 (09:00→22:45)
[2020-04-21] MEDS: BLOOD SUGAR DIAGNOSTIC STRIP TEST SCH ×3 (11:50→21:00)
[2020-04-21] MEDS ORDERED: VANCOMYCIN 1 G PREMIX 200 ML IV SCH (12:00)
[2020-04-21] MEDS: INSULIN LISPRO 100 UNITS/ML SUBCUT SCH ×3 (12:20→21:00)
[2020-04-21 13:44] LABS: BASOPHILS % 0.2 % (0.0-2.0); EOSINOPHILS % 4.5 % (0.0-5.0); HEMATOCRIT. 30.1 % (42.0-52.0); HEMOGLOBIN. 10.2 g/dL (14.0-18.0); LYMPHOCYTES % 7.8 % (20.0-50.0); MEAN CORPUSCULAR HEMOGLOBIN 32.5 pg (28.0-32.0); MEAN CORPUSCULAR VOLUME 96.1 fL (80.0-94.0); MEAN PLATELET VOLUME 8.2 fl (7.4-10.4); MONOCYTES % 5.7 % (2.0-8.0); NEUTROPHILS % 81.8 % (40.0-76.0); PLATELET 256 x1000/uL (130-400); RED BLOOD CELL COUNT 3.14 mill/uL (4.7-6.1); RED CELL DISTRIBUTION WIDTH 19.2 % (11.6-14.6)
[2020-04-21 13:56] LABS: CHLORIDE 116 mEq/L (98-107)
[2020-04-21 14:02] LABS: LDL CHOLESTEROL 32 mg/dL (5-100)
[2020-04-21 14:04] LABS: CREATINE KINASE 65 IU/L (39-308); HDL CHOLESTEROL 31 mg/dL (40-59)
[2020-04-21 14:07] LABS: CREATINE KINASE MB FRACTION 2.3 ng/mL (0.5-3.6)
[2020-04-21] MEDS ORDERED: LEVOFLOXACIN 500MG PREMIX 100 ML IV SCH (16:15)
[2020-04-21] MEDS: DEXTROSE 50% WATER 50ML SYRINGE IV PRN ×2 (18:38→21:27)
[2020-04-21] MEDS: VANCOMYCIN 750 MG PREMIX 150 ML IV SCH (22:46)
[2020-04-21] MEDS: LEVETIRACETAM 500MG PREMIX 100 ML IV SCH (23:50)
[2020-04-22] VITALS (12 sets, daily range): BP systolic 88–111; BP diastolic 39–70
[2020-04-22] MEDS: DEXT 5%/0.45% NACL 1000ML 1,000 ML IV SCH ×2 (02:15→20:29)
[2020-04-22] MEDS ORDERED: KCL 20MEQ/100ML PREMIX 100 ML IV NR (03:00)
[2020-04-22] MEDS: BLOOD SUGAR DIAGNOSTIC STRIP TEST SCH ×4 (06:16→21:00)
[2020-04-22] MEDS: INSULIN LISPRO 100 UNITS/ML SUBCUT SCH ×4 (06:16→21:00)
[2020-04-22] MEDS: LEVETIRACETAM 500MG PREMIX 100 ML IV SCH ×2 (09:04→20:29)
[2020-04-22] MEDS: VANCOMYCIN 750 MG PREMIX 150 ML IV SCH ×2 (10:07→22:52)
[2020-04-23] VITALS (9 sets, daily range): BP systolic 87–110; BP diastolic 51–73
[2020-04-23] MEDS: PIPERACILLIN/TAZOBACTAM 3.375 G in DEXT 5% WATER 100 ML IV SCH ×4 (00:39→22:02)
[2020-04-23] MEDS: BLOOD SUGAR DIAGNOSTIC STRIP TEST SCH ×4 (06:47→21:00)
[2020-04-23] MEDS: INSULIN LISPRO 100 UNITS/ML SUBCUT SCH ×4 (06:47→21:00)
[2020-04-23 07:08] LABS: HEMATOCRIT. 29.9 % (42.0-52.0); HEMOGLOBIN. 10.4 g/dL (14.0-18.0); MEAN CORPUSCULAR HEMOGLOBIN 33.1 pg (28.0-32.0); MEAN PLATELET VOLUME 8.4 fl (7.4-10.4); PLATELET 238 x1000/uL (130-400); RED BLOOD CELL COUNT 3.14 mill/uL (4.7-6.1); RED CELL DISTRIBUTION WIDTH 18.8 % (11.6-14.6)
[2020-04-23 07:20] LABS: CHLORIDE 119 mEq/L (98-107)
[2020-04-23] MEDS: LEVETIRACETAM 500MG PREMIX 100 ML IV SCH ×2 (09:44→22:02)
[2020-04-23] MEDS: VANCOMYCIN 750 MG PREMIX 150 ML IV SCH (13:12)
[2020-04-23] MEDS: DEXT 5%/0.45% NACL 1000ML 1,000 ML IV SCH (13:12)
[2020-04-23 16:12] LABS: PLATELET ESTIMATE NORMAL
[2020-04-24] VITALS (10 sets, daily range): BP systolic 96–127; BP diastolic 54–78
[2020-04-24] MEDS: DEXT 5%/0.45% NACL 1000ML 1,000 ML IV SCH (04:35)
[2020-04-24] MEDS: INSULIN LISPRO 100 UNITS/ML SUBCUT SCH ×2 (06:40→12:06)
[2020-04-24] MEDS: BLOOD SUGAR DIAGNOSTIC STRIP TEST SCH ×2 (06:40→12:06)
[2020-04-24] MEDS: PIPERACILLIN/TAZOBACTAM 3.375 G in DEXT 5% WATER 100 ML IV SCH ×2 (06:40→14:13)
[2020-04-24] MEDS: LEVETIRACETAM 500MG PREMIX 100 ML IV SCH ×2 (09:19→20:52)
[2020-04-24 12:41] LABS: HEMATOCRIT 31.1 % (42.0-52.0); HEMOGLOBIN 10.4 g/dL (14.0-18.0); MEAN CORPUSCULAR VOLUME 95.5 fL (80.0-94.0); PLATELET 210 x1000/uL (130-400); RED BLOOD CELL COUNT 3.26 mill/uL (4.7-6.1); RED CELL DISTRIBUTION WIDTH 18.5 % (11.6-14.6)
[2020-04-24 13:12] LABS: CHLORIDE 119 mEq/L (98-107)
[2020-04-24] MEDS ORDERED: POTASSIUM CHLORIDE 20MEQ/PACKET PO NR (14:15)
[2020-04-24] MEDS ORDERED: LOPERAMIDE HCL 2MG CAPSULE PO NR (14:16)
[2020-04-24] MEDS: DEXTROSE 5% WATER 1,000 ML IV SCH (16:20)
[2020-04-24] MEDS ORDERED: PSYLLIUM SEED PACKET PO SCH (17:00)
[2020-04-24] MEDS: CEFEPIME 2,000 MG in DEXT 5% WATER 100 ML IV SCH (20:47)
[2020-04-25] VITALS (12 sets, daily range): BP systolic 75–120; BP diastolic 42–83
[2020-04-25] MEDS: DEXTROSE 5% WATER 1,000 ML IV SCH ×2 (04:33→13:46)
[2020-04-25] MEDS: CEFEPIME 2,000 MG in DEXT 5% WATER 100 ML IV SCH ×3 (05:58→22:09)
[2020-04-25] MEDS: LEVETIRACETAM 500MG PREMIX 100 ML IV SCH ×2 (09:10→21:26)
[2020-04-25] MEDS: FOLIC ACID 1MG TABLET PO SCH (09:10)
[2020-04-25 10:11] LABS: HEMATOCRIT. 29.3 % (42.0-52.0); HEMOGLOBIN. 9.9 g/dL (14.0-18.0); MEAN CORPUSCULAR HEMOGLOBIN 31.9 pg (28.0-32.0); MEAN CORPUSCULAR VOLUME 94.4 fL (80.0-94.0); MEAN PLATELET VOLUME 8.4 fl (7.4-10.4); PLATELET 183 x1000/uL (130-400); RED BLOOD CELL COUNT 3.11 mill/uL (4.7-6.1); RED CELL DISTRIBUTION WIDTH 18.3 % (11.6-14.6)
[2020-04-25 10:27] LABS: CHLORIDE 119 mEq/L (98-107)
[2020-04-25 10:36] LABS: PHOSPHORUS 3.2 mg/dL (2.5-4.9)
[2020-04-25] MEDS ORDERED: PHENOBARBITAL 30 MG TABLET PO SCH (11:00)
[2020-04-25] MEDS: THIORIDAZINE HCL 25MG TABLET PO SCH (11:39)
[2020-04-25 16:21] LABS: BG BASE EXCESS 3.6 mmol/L (-2.0-2.0); BG CARBOXYHEMOGLOBIN 0.3 % (0.5-1.5); BG DEOXYHEMOGLOBIN 2.1 % (0.0-5.0); BG FRACTION INSPIRED OXYGEN 21; BG HCO3 ACT 28.5 mmol/L (22.0-26.0); BG METHEMOGLOBIN 0.3 % (0.0-1.5); BG OXYGEN SATURATION 97.9 % (92.0-98.5); BG OXYHEMOGLOBIN 97.3 % (94.0-97.0); BG PCO2 44.9 mmHg (35.0-45.0); BG PO2 128.3 mmHg (75.0-100.0); BG SAMPLE SITE RIGHT RADIAL; BG TOTAL HEMOGLOBIN 9.1 g/dL (12.0-18.0); BG VENT MODE ROOM AIR
[2020-04-25 18:33] LABS: PLATELET ESTIMATE NORMAL
[2020-04-25] MEDS ORDERED: SODIUM CHLORIDE 0.9% 1,000 ML IV SCH (19:15)
[2020-04-25] MEDS ORDERED: PHENOBARBITAL 60MG TABLET PO SCH (21:00)
[2020-04-25] MEDS: PHENOBARBITAL 60MG TABLET PO SCH (21:26)
[2020-04-25 21:30] LABS: HEMATOCRIT 28.9 % (42.0-52.0); HEMOGLOBIN 9.4 g/dL (14.0-18.0); MEAN CORPUSCULAR VOLUME 95.5 fL (80.0-94.0); PLATELET 156 x1000/uL (130-400); RED BLOOD CELL COUNT 3.02 mill/uL (4.7-6.1); RED CELL DISTRIBUTION WIDTH 18.8 % (11.6-14.6)
[2020-04-26] VITALS (17 sets, daily range): BP systolic 83–121; BP diastolic 44–73
[2020-04-26] MEDS: NOREPINEPHRINE 8 MG in DEXT 5% WATER 242 ML IV PRN ×3 (01:03→15:01)
[2020-04-26] MEDS: CEFEPIME 2,000 MG in DEXT 5% WATER 100 ML IV SCH (06:08)
[2020-04-26] MEDS ORDERED: SODIUM BICARBONATE 4% (2.4MEQ) 5ML VIAL IV ONE (07:37)
[2020-04-26] MEDS ORDERED: LIDOCAINE HCL 1% 20ML VIAL (Pyxis) INJ ONE (07:38)
[2020-04-26 09:22] LABS: HEMATOCRIT. 26.4 % (42.0-52.0); HEMOGLOBIN. 8.9 g/dL (14.0-18.0); MEAN CORPUSCULAR HEMOGLOBIN 31.7 pg (28.0-32.0); MEAN CORPUSCULAR VOLUME 94.8 fL (80.0-94.0); MEAN PLATELET VOLUME 8.4 fl (7.4-10.4); PLATELET 162 x1000/uL (130-400); RED BLOOD CELL COUNT 2.79 mill/uL (4.7-6.1); RED CELL DISTRIBUTION WIDTH 18.5 % (11.6-14.6)
[2020-04-26] MEDS: THIORIDAZINE HCL 25MG TABLET PO SCH (09:22)
[2020-04-26] MEDS: LEVETIRACETAM 500MG PREMIX 100 ML IV SCH ×2 (09:22→21:54)
[2020-04-26] MEDS: PHENOBARBITAL 60MG TABLET PO SCH ×2 (09:22→21:55)
[2020-04-26] MEDS: FOLIC ACID 1MG TABLET PO SCH (09:23)
[2020-04-26 09:30] LABS: CHLORIDE 113 mEq/L (98-107)
[2020-04-26] MEDS: DEXTROSE 5% WATER 1,000 ML IV SCH ×2 (11:38→23:27)
[2020-04-26] MEDS ORDERED: IOHEXOL-300 100 ML BOTTLE ONE (12:03)
[2020-04-26] MEDS ORDERED: NA PHOS,M-B/NA PHOS,DI-BA ENEMA 118ML PR PRN (13:00)
[2020-04-26] MEDS: LEVOFLOXACIN 750MG PREMIX 150 ML IV SCH (13:39)
[2020-04-26] MEDS: DOCUSATE SODIUM SUGAR FREE 100MG/10ML UDC NG SCH (13:40)
[2020-04-26] MEDS ORDERED: VANCOMYCIN 750 MG PREMIX 150 ML IV SCH (14:00)
[2020-04-26 14:04] LABS: PLATELET ESTIMATE NORMAL
[2020-04-26] MEDS: DIPHENHYDRAMINE 50MG/ML VIAL IV PRN (18:45)
[2020-04-27] VITALS (23 sets, daily range): BP systolic 75–104; BP diastolic 23–63
[2020-04-27] MEDS: DIPHENHYDRAMINE 50MG/ML VIAL IV PRN ×2 (02:51→22:06)
[2020-04-27] MEDS ORDERED: VANCOMYCIN 750 MG PREMIX 150 ML IV SCH (06:00)
[2020-04-27] MEDS: INSULIN LISPRO 100 UNITS/ML SUBCUT SCH ×4 (06:17→21:00)
[2020-04-27] MEDS: BLOOD SUGAR DIAGNOSTIC STRIP TEST SCH ×4 (06:17→21:00)
[2020-04-27] MEDS: NOREPINEPHRINE 8 MG in DEXT 5% WATER 242 ML IV PRN ×2 (06:38→18:10)
[2020-04-27 06:46] LABS: HEMATOCRIT. 26.2 % (42.0-52.0); HEMOGLOBIN. 8.8 g/dL (14.0-18.0); MEAN CORPUSCULAR HEMOGLOBIN 31.8 pg (28.0-32.0); MEAN CORPUSCULAR VOLUME 94.7 fL (80.0-94.0); MEAN PLATELET VOLUME 8.6 fl (7.4-10.4); PLATELET 155 x1000/uL (130-400); RED BLOOD CELL COUNT 2.77 mill/uL (4.7-6.1); RED CELL DISTRIBUTION WIDTH 17.9 % (11.6-14.6)
[2020-04-27 07:03] LABS: CHLORIDE 111 mEq/L (98-107)
[2020-04-27] MEDS: FOLIC ACID 1MG TABLET PO SCH (08:48)
[2020-04-27] MEDS: PHENOBARBITAL 60MG TABLET PO SCH ×2 (08:48→22:05)
[2020-04-27] MEDS: THIORIDAZINE HCL 25MG TABLET PO SCH (08:48)
[2020-04-27] MEDS: DOCUSATE SODIUM SUGAR FREE 100MG/10ML UDC NG SCH (08:49)
[2020-04-27] MEDS: LEVETIRACETAM 500MG PREMIX 100 ML IV SCH (08:49)
[2020-04-27] MEDS: LEVOFLOXACIN 750MG PREMIX 150 ML IV SCH (11:08)
[2020-04-27] MEDS: DEXTROSE 5% WATER 1,000 ML IV SCH (13:45)
[2020-04-27 14:07] LABS: PLATELET ESTIMATE NORMAL
[2020-04-27] MEDS: CARBAMAZEPINE 100MG TABLET CHEW PO SCH (17:01)
[2020-04-27] MEDS: VANCOMYCIN 750 MG PREMIX 150 ML IV SCH (22:05)
[2020-04-28] VITALS (25 sets, daily range): BP systolic 77–119; BP diastolic 48–77
[2020-04-28] MEDS: DEXTROSE 5% WATER 1,000 ML IV SCH ×3 (04:55→21:45)
[2020-04-28] MEDS: NOREPINEPHRINE 8 MG in DEXT 5% WATER 242 ML IV PRN ×2 (04:56→14:09)
[2020-04-28 06:41] LABS: CHLORIDE 112 mEq/L (98-107); HEMATOCRIT. 26.5 % (42.0-52.0); HEMOGLOBIN. 8.9 g/dL (14.0-18.0); MEAN CORPUSCULAR HEMOGLOBIN 31.7 pg (28.0-32.0); MEAN CORPUSCULAR VOLUME 94.5 fL (80.0-94.0); MEAN PLATELET VOLUME 8.5 fl (7.4-10.4); PLATELET 148 x1000/uL (130-400); RED BLOOD CELL COUNT 2.81 mill/uL (4.7-6.1); RED CELL DISTRIBUTION WIDTH 18.5 % (11.6-14.6)
[2020-04-28] MEDS: BLOOD SUGAR DIAGNOSTIC STRIP TEST SCH ×4 (06:50→21:00)
[2020-04-28] MEDS: INSULIN LISPRO 100 UNITS/ML SUBCUT SCH ×4 (07:12→21:00)
[2020-04-28] MEDS: DOCUSATE SODIUM SUGAR FREE 100MG/10ML UDC NG SCH (08:40)
[2020-04-28] MEDS: FOLIC ACID 1MG TABLET PO SCH (08:40)
[2020-04-28] MEDS: THIORIDAZINE HCL 25MG TABLET PO SCH (08:40)
[2020-04-28] MEDS: VANCOMYCIN 750 MG PREMIX 150 ML IV SCH ×2 (08:40→21:39)
[2020-04-28] MEDS: PHENOBARBITAL 60MG TABLET PO SCH ×2 (08:41→21:39)
[2020-04-28] MEDS: CARBAMAZEPINE 100MG TABLET CHEW PO SCH ×2 (08:41→17:35)
[2020-04-28] MEDS: LEVOFLOXACIN 750MG PREMIX 150 ML IV SCH (11:47)
[2020-04-28 13:40] LABS: PLATELET ESTIMATE NORMAL
[2020-04-29] VITALS (33 sets, daily range): BP systolic 48–111; BP diastolic 28–77
[2020-04-29] MEDS: NOREPINEPHRINE 8 MG in DEXT 5% WATER 242 ML IV PRN ×4 (01:09→21:08)
[2020-04-29 05:58] LABS: HEMATOCRIT. 25.6 % (42.0-52.0); HEMOGLOBIN. 8.5 g/dL (14.0-18.0); MEAN CORPUSCULAR HEMOGLOBIN 31.4 pg (28.0-32.0); MEAN CORPUSCULAR VOLUME 94.7 fL (80.0-94.0); MEAN PLATELET VOLUME 9.5 fl (7.4-10.4); PLATELET 127 x1000/uL (130-400); RED CELL DISTRIBUTION WIDTH 19.1 % (11.6-14.6)
[2020-04-29 06:05] LABS: CHLORIDE 103 mEq/L (98-107)
[2020-04-29] MEDS: INSULIN LISPRO 100 UNITS/ML SUBCUT SCH ×4 (06:28→21:00)
[2020-04-29] MEDS: BLOOD SUGAR DIAGNOSTIC STRIP TEST SCH ×4 (06:28→21:00)
[2020-04-29] MEDS: VANCOMYCIN 750 MG PREMIX 150 ML IV SCH ×2 (09:36→22:31)
[2020-04-29] MEDS: DOCUSATE SODIUM SUGAR FREE 100MG/10ML UDC NG SCH (09:36)
[2020-04-29] MEDS: FOLIC ACID 1MG TABLET PO SCH (09:37)
[2020-04-29] MEDS: CARBAMAZEPINE 100MG TABLET CHEW PO SCH ×2 (09:37→17:57)
[2020-04-29] MEDS: PHENOBARBITAL 60MG TABLET PO SCH ×2 (09:37→22:32)
[2020-04-29] MEDS: THIORIDAZINE HCL 25MG TABLET PO SCH (09:37)
[2020-04-29] MEDS: DEXTROSE 5% WATER 1,000 ML IV SCH (10:00)
[2020-04-29] MEDS: LEVOFLOXACIN 750MG PREMIX 150 ML IV SCH (10:02)
[2020-04-29] MEDS ORDERED: SODIUM CHLORIDE 0.45% 1,000 ML IV SCH (10:15)
[2020-04-29] MEDS: DEXT 5%/0.9% NACL 1,000 ML IV SCH (10:48)
[2020-04-29] MEDS: HEPARIN 5000 UNITS/ML VIAL SUBCUT SCH ×2 (10:49→22:32)
[2020-04-29] MEDS: ASCORBIC ACID 500 MG TABLET PO SCH ×2 (11:30→21:00)
[2020-04-29] MEDS ORDERED: ZINC SULFATE 220 MG ( 50 ) CAPSULE PO SCH (11:30)
[2020-04-29 23:53] LABS: PLATELET ESTIMATE SLIGHTLY DECREASED
[2020-04-30] VITALS (34 sets, daily range): BP systolic 74–134; BP diastolic 36–92
[2020-04-30] MEDS: DEXT 5%/0.9% NACL 1,000 ML IV SCH (01:29)
[2020-04-30] MEDS: NOREPINEPHRINE 8 MG in DEXT 5% WATER 242 ML IV PRN ×5 (02:18→22:15)
[2020-04-30] MEDS: BLOOD SUGAR DIAGNOSTIC STRIP TEST SCH ×4 (07:08→21:27)
[2020-04-30] MEDS: INSULIN LISPRO 100 UNITS/ML SUBCUT SCH ×4 (07:20→21:00)
[2020-04-30] MEDS: ASCORBIC ACID 500 MG TABLET PO SCH ×2 (09:00→21:00)
[2020-04-30 10:06] LABS: HEMATOCRIT. 26.8 % (42.0-52.0); HEMOGLOBIN. 8.9 g/dL (14.0-18.0); MEAN CORPUSCULAR HEMOGLOBIN 31.3 pg (28.0-32.0); MEAN CORPUSCULAR VOLUME 94.7 fL (80.0-94.0); MEAN PLATELET VOLUME 9.2 fl (7.4-10.4); PLATELET 129 x1000/uL (130-400); RED BLOOD CELL COUNT 2.83 mill/uL (4.7-6.1); RED CELL DISTRIBUTION WIDTH 18.3 % (11.6-14.6)
[2020-04-30 10:27] LABS: CHLORIDE 113 mEq/L (98-107)
[2020-04-30] MEDS: VANCOMYCIN 750 MG PREMIX 150 ML IV SCH ×2 (10:31→21:42)
[2020-04-30] MEDS: THIORIDAZINE HCL 25MG TABLET PO SCH (10:31)
[2020-04-30] MEDS: HEPARIN 5000 UNITS/ML VIAL SUBCUT SCH ×2 (10:32→21:42)
[2020-04-30] MEDS: CARBAMAZEPINE 100MG TABLET CHEW PO SCH ×2 (10:32→18:04)
[2020-04-30] MEDS: PHENOBARBITAL 60MG TABLET PO SCH ×2 (10:32→21:42)
[2020-04-30] MEDS: LEVOFLOXACIN 750MG PREMIX 150 ML IV SCH (12:21)
[2020-04-30] MEDS: DEXT 5%/0.45% NACL 1000ML 1,000 ML IV SCH (12:22)
[2020-04-30] MEDS ORDERED: MINERAL OIL ENEMA 133ML PR NR (13:30)
[2020-04-30] MEDS: NYSTATIN 100,000 UNITS/ML 5ML UDC SSW SCH ×2 (14:07→18:03)
[2020-04-30] MEDS: TRIAMCINOLONE ACETONIDE 0.1 % OINT 15GM TOP SCH (21:42)
[2020-04-30 22:03] LABS: PLATELET ESTIMATE SLIGHTLY DECREASED
[2020-05-01] VITALS (48 sets, daily range): BP systolic 76–116; BP diastolic 25–79
[2020-05-01] MEDS: NYSTATIN 100,000 UNITS/ML 5ML UDC SSW SCH ×4 (00:33→17:24)
[2020-05-01] MEDS: DEXT 5%/0.45% NACL 1000ML 1,000 ML IV SCH ×2 (00:33→15:58)
[2020-05-01] MEDS: NOREPINEPHRINE 8 MG in DEXT 5% WATER 242 ML IV PRN ×2 (02:10→05:52)
[2020-05-01] MEDS: BLOOD SUGAR DIAGNOSTIC STRIP TEST SCH ×4 (06:08→20:35)
[2020-05-01] MEDS: INSULIN LISPRO 100 UNITS/ML SUBCUT SCH ×4 (06:34→20:35)
[2020-05-01 06:59] LABS: HEMATOCRIT. 23.6 % (42.0-52.0); HEMOGLOBIN. 7.8 g/dL (14.0-18.0); MEAN CORPUSCULAR HEMOGLOBIN 31.3 pg (28.0-32.0); MEAN CORPUSCULAR VOLUME 94.7 fL (80.0-94.0); MEAN PLATELET VOLUME 9.9 fl (7.4-10.4); PLATELET 82 x1000/uL (130-400); RED BLOOD CELL COUNT 2.49 mill/uL (4.7-6.1); RED CELL DISTRIBUTION WIDTH 18.3 % (11.6-14.6)
[2020-05-01] MEDS: HEPARIN 5000 UNITS/ML VIAL SUBCUT SCH (09:00)
[2020-05-01] MEDS: ASCORBIC ACID 500 MG TABLET PO SCH ×2 (09:00→20:34)
[2020-05-01] MEDS: VANCOMYCIN 750 MG PREMIX 150 ML IV SCH ×2 (09:40→20:39)
[2020-05-01] MEDS: NOREPINEPHRINE 32 MG in DEXT 5% WATER 218 ML IV PRN ×2 (09:40→20:55)
[2020-05-01] MEDS: CARBAMAZEPINE 100MG TABLET CHEW PO SCH ×2 (09:40→17:24)
[2020-05-01] MEDS: TRIAMCINOLONE ACETONIDE 0.1 % OINT 15GM TOP SCH ×2 (09:40→20:50)
[2020-05-01] MEDS: THIORIDAZINE HCL 25MG TABLET PO SCH (09:41)
[2020-05-01 10:18] LABS: CHLORIDE 111 mEq/L (98-107)
[2020-05-01] MEDS: LEVOFLOXACIN 750MG PREMIX 150 ML IV SCH (11:42)
[2020-05-01] MEDS: DEXTROSE 50% WATER 50ML SYRINGE IV PRN ×3 (12:05→20:39)
[2020-05-01 12:34] LABS: D-DIMER 1.44 mg/L FEU (<0.50); INR 1.1; PROTHROMBIN TIME 11.2 sec (9.6-11.0)
[2020-05-01 14:19] LABS: PLATELET ESTIMATE DECREASED
[2020-05-01] MEDS: SODIUM CHLORIDE 0.9% 250 ML IV SCH ×2 (16:12→17:00)
[2020-05-01] MEDS: MIDODRINE HCL 5MG TABLET PO SCH (17:25)
[2020-05-02] VITALS (58 sets, daily range): BP systolic 63–139; BP diastolic 27–76
[2020-05-02] MEDS: NYSTATIN 100,000 UNITS/ML 5ML UDC SSW SCH ×4 (01:36→18:00)
[2020-05-02 05:29] LABS: HEMOGLOBIN. 8.9 g/dL (14.0-18.0); MEAN CORPUSCULAR HEMOGLOBIN 31.1 pg (28.0-32.0); MEAN CORPUSCULAR VOLUME 94.4 fL (80.0-94.0); PLATELET 109 x1000/uL (130-400); RED BLOOD CELL COUNT 2.86 mill/uL (4.7-6.1); RED CELL DISTRIBUTION WIDTH 18.5 % (11.6-14.6)
[2020-05-02 05:44] LABS: CHLORIDE 112 mEq/L (98-107)
[2020-05-02] MEDS: DEXT 5%/0.45% NACL 1000ML 1,000 ML IV SCH (05:54)
[2020-05-02] MEDS: VASOPRESSIN 20 UNIT in SODIUM CHLORIDE 0.9% 99 ML IV PRN (07:05)
[2020-05-02] MEDS: BLOOD SUGAR DIAGNOSTIC STRIP TEST SCH ×4 (07:30→20:41)
[2020-05-02] MEDS: CARBAMAZEPINE 100MG TABLET CHEW PO SCH ×2 (08:00→18:00)
[2020-05-02] MEDS: INSULIN LISPRO 100 UNITS/ML SUBCUT SCH ×4 (08:00→21:00)
[2020-05-02] MEDS: TRIAMCINOLONE ACETONIDE 0.1 % OINT 15GM TOP SCH ×2 (09:00→20:40)
[2020-05-02] MEDS: THIORIDAZINE HCL 25MG TABLET PO SCH (09:00)
[2020-05-02] MEDS: MIDODRINE HCL 5MG TABLET PO SCH ×3 (09:31→17:00)
[2020-05-02] MEDS: ASCORBIC ACID 500 MG TABLET PO SCH ×2 (09:31→20:40)
[2020-05-02] MEDS ORDERED: PERMETHRIN 5% CREAM 60GM TOP SCH (11:00)
[2020-05-02] MEDS: DEXTROSE 50% WATER 50ML SYRINGE IV PRN (13:06)
[2020-05-02] MEDS: LEVOFLOXACIN 750MG PREMIX 150 ML IV SCH (13:07)
[2020-05-02] MEDS: VANCOMYCIN 750 MG PREMIX 150 ML IV SCH (14:00)
[2020-05-02] MEDS: PHENYLEPHRINE 100 MG in DEXT 5% WATER 240 ML IV PRN ×2 (15:46→22:49)
[2020-05-02 17:03] LABS: PLATELET ESTIMATE DECREASED
[2020-05-02] MEDS ORDERED: DOPAMINE 400MG/250ML PREMIX 250 ML IV PRN (18:45)
[2020-05-02] MEDS ORDERED: AMIODARONE HCL 150 MG in DEXT 5% WATER 100 ML IV ONE (19:00)
[2020-05-02] MEDS ORDERED: SODIUM CHLORIDE 0.45% 250 ML IV NR (19:01)
[2020-05-02] MEDS: AMIODARONE HCL 900 MG in DEXT 5% WATER 482 ML IV PRN (20:56)
[2020-05-02 21:01] LABS: BG BASE EXCESS -2.9 mmol/L (-2.0-2.0); BG CARBOXYHEMOGLOBIN 0.3 % (0.5-1.5); BG DEOXYHEMOGLOBIN 16.7 % (0.0-5.0); BG FRACTION INSPIRED OXYGEN 21; BG HCO3 ACT 21.9 mmol/L (22.0-26.0); BG OXYGEN SATURATION 83.2 % (92.0-98.5); BG PCO2 37.7 mmHg (35.0-45.0); BG PH 7.382 (7.350-7.450); BG PO2 49.7 mmHg (75.0-100.0); BG SAMPLE SITE LEFT RADIAL; BG TOTAL HEMOGLOBIN 7.6 g/dL (12.0-18.0); BG VENT MODE ROOM AIR
[2020-05-02 21:56] LABS: CHLORIDE 109 mEq/L (98-107)
[2020-05-02 22:01] LABS: PHOSPHORUS 2.7 mg/dL (2.5-4.9)
[2020-05-03] VITALS (82 sets, daily range): BP systolic 54–144; BP diastolic 17–89
[2020-05-03] MEDS: VASOPRESSIN 20 UNIT in SODIUM CHLORIDE 0.9% 99 ML IV PRN ×3 (01:35→18:41)
[2020-05-03] MEDS: NOREPINEPHRINE 32 MG in DEXT 5% WATER 218 ML IV PRN ×2 (04:06→18:12)
[2020-05-03] MEDS: NYSTATIN 100,000 UNITS/ML 5ML UDC SSW SCH ×4 (05:25→17:33)
[2020-05-03 07:13] LABS: BASOPHILS % 0.1 % (0.0-2.0); EOSINOPHILS % 1.2 % (0.0-5.0); LYMPHOCYTES % 9.5 % (20.0-50.0); MEAN CORPUSCULAR HEMOGLOBIN 31.5 pg (28.0-32.0); MEAN CORPUSCULAR VOLUME 94.9 fL (80.0-94.0); MEAN PLATELET VOLUME 9.2 fl (7.4-10.4); MONOCYTES % 3.8 % (2.0-8.0); NEUTROPHILS % 85.4 % (40.0-76.0); PLATELET 75 x1000/uL (130-400); RED BLOOD CELL COUNT 1.87 mill/uL (4.7-6.1); RED CELL DISTRIBUTION WIDTH 18.1 % (11.6-14.6)
[2020-05-03 07:52] LABS: CHLORIDE 107 mEq/L (98-107)
[2020-05-03 07:55] LABS: HEMATOCRIT. 17.8 % (42.0-52.0); HEMOGLOBIN. 5.9 g/dL (14.0-18.0)
[2020-05-03] MEDS: INSULIN LISPRO 100 UNITS/ML SUBCUT SCH ×4 (08:00→21:00)
[2020-05-03] MEDS: CARBAMAZEPINE 100MG TABLET CHEW PO SCH ×2 (08:00→17:38)
[2020-05-03] MEDS: THIORIDAZINE HCL 25MG TABLET PO SCH (08:21)
[2020-05-03] MEDS: ASCORBIC ACID 500 MG TABLET PO SCH ×2 (08:21→21:00)
[2020-05-03] MEDS: MIDODRINE HCL 5MG TABLET PO SCH ×3 (08:21→17:34)
[2020-05-03] MEDS: TRIAMCINOLONE ACETONIDE 0.1 % OINT 15GM TOP SCH ×2 (08:22→22:52)
[2020-05-03] MEDS: BLOOD SUGAR DIAGNOSTIC STRIP TEST SCH ×4 (08:22→21:00)
[2020-05-03] MEDS: VANCOMYCIN 750 MG PREMIX 150 ML IV SCH (08:59)
[2020-05-03] MEDS: PHENYLEPHRINE 100 MG in DEXT 5% WATER 240 ML IV PRN ×2 (09:27→23:00)
[2020-05-03] MEDS ORDERED: IOHEXOL-300 100 ML BOTTLE ONE (12:02)
[2020-05-03] MEDS ORDERED: SODIUM BICARBONATE 4% (2.4MEQ) 5ML VIAL IV ONE (13:11)
[2020-05-03] MEDS ORDERED: LIDOCAINE HCL 1% 20ML VIAL (Pyxis) INJ ONE (13:12)
[2020-05-03] MEDS: PANTOPRAZOLE SODIUM 40 MG/VIAL IV SCH ×2 (14:31→22:50)
[2020-05-03] MEDS: DEXT 5%/0.45% NACL 1000ML 1,000 ML IV SCH (14:32)
[2020-05-03 15:05] LABS: HEMATOCRIT 14.6 % (42.0-52.0)
[2020-05-03] MEDS: PIPERACILLIN/TAZOBACTAM 3.375 G in DEXT 5% WATER 100 ML IV SCH ×2 (15:17→22:22)
[2020-05-03] MEDS ORDERED: SORBITOL 70% SOLN 30ML PO NR (16:30)
[2020-05-03] MEDS: SUCRALFATE 1 G/10 ML UDC NG SCH (17:34)
[2020-05-03 19:42] LABS: CLARITY URINE CLEAR (CLEAR); COLOR URINE YELLOW (YELLOW); KETONES URINE NEGATIVE (NEGATIVE); LEUKOCYTE ESTERASE URINE NEGATIVE (NEGATIVE); NITRITE URINE NEGATIVE (NEGATIVE); OCCULT BLOOD URINE 2+ (NEGATIVE); PROTEIN URINE TRACE (NEGATIVE); SPECIFIC GRAVITY URINE 1.032 (1.005-1.030); UROBILINOGEN URINE 0.2 E.U./dL (0.2-1.0)
[2020-05-03] MEDS: AMIODARONE HCL 900 MG in DEXT 5% WATER 482 ML IV PRN (20:39)
[2020-05-04] VITALS (79 sets, daily range): BP systolic 86–152; BP diastolic 36–79
[2020-05-04] MEDS: DEXT 5%/0.45% NACL 1000ML 1,000 ML IV SCH ×3 (00:48→21:06)
[2020-05-04 01:48] LABS: HEMATOCRIT. 27.3 % (42.0-52.0); HEMOGLOBIN. 9.3 g/dL (14.0-18.0); MEAN CORPUSCULAR HEMOGLOBIN 31.3 pg (28.0-32.0); MEAN CORPUSCULAR VOLUME 91.8 fL (80.0-94.0); MEAN PLATELET VOLUME 9.4 fl (7.4-10.4); PLATELET 69 x1000/uL (130-400); RED BLOOD CELL COUNT 2.98 mill/uL (4.7-6.1); RED CELL DISTRIBUTION WIDTH 14.9 % (11.6-14.6)
[2020-05-04] MEDS: PIPERACILLIN/TAZOBACTAM 3.375 G in DEXT 5% WATER 100 ML IV SCH ×4 (02:26→21:08)
[2020-05-04 02:51] LABS: PLATELET ESTIMATE DECREASED
[2020-05-04] MEDS: VASOPRESSIN 20 UNIT in SODIUM CHLORIDE 0.9% 99 ML IV PRN ×2 (03:38→12:15)
[2020-05-04] MEDS: SUCRALFATE 1 G/10 ML UDC NG SCH ×4 (06:00→18:32)
[2020-05-04] MEDS: NYSTATIN 100,000 UNITS/ML 5ML UDC SSW SCH ×4 (06:00→18:35)
[2020-05-04] MEDS: DEXTROSE 50% WATER 50ML SYRINGE IV PRN (06:12)
[2020-05-04] MEDS: BLOOD SUGAR DIAGNOSTIC STRIP TEST SCH ×4 (07:30→21:04)
[2020-05-04 07:50] LABS: BASOPHILS % 0.1 % (0.0-2.0); EOSINOPHILS % 0.1 % (0.0-5.0); HEMATOCRIT. 25.8 % (42.0-52.0); HEMOGLOBIN. 8.7 g/dL (14.0-18.0); LYMPHOCYTES % 7.6 % (20.0-50.0); MEAN CORPUSCULAR HEMOGLOBIN 31.1 pg (28.0-32.0); MEAN CORPUSCULAR VOLUME 92.4 fL (80.0-94.0); MEAN PLATELET VOLUME 9.9 fl (7.4-10.4); MONOCYTES % 3.7 % (2.0-8.0); NEUTROPHILS % 88.5 % (40.0-76.0); PLATELET 65 x1000/uL (130-400); RED BLOOD CELL COUNT 2.79 mill/uL (4.7-6.1); RED CELL DISTRIBUTION WIDTH 14.6 % (11.6-14.6)
[2020-05-04] MEDS: INSULIN LISPRO 100 UNITS/ML SUBCUT SCH ×4 (08:00→21:00)
[2020-05-04 08:04] LABS: CHLORIDE 106 mEq/L (98-107)
[2020-05-04] MEDS: NOREPINEPHRINE 32 MG in DEXT 5% WATER 218 ML IV PRN ×2 (08:24→22:19)
[2020-05-04] MEDS ORDERED: AMIODARONE HCL 200 MG TABLET PO SCH (11:00)
[2020-05-04] MEDS: PHENYLEPHRINE 100 MG in DEXT 5% WATER 240 ML IV PRN (11:35)
[2020-05-04] MEDS: MIDODRINE HCL 5MG TABLET PO SCH ×3 (11:43→18:33)
[2020-05-04] MEDS: THIORIDAZINE HCL 25MG TABLET PO SCH (11:47)
[2020-05-04] MEDS: ASCORBIC ACID 500 MG TABLET PO SCH ×2 (11:48→21:04)
[2020-05-04] MEDS: PANTOPRAZOLE SODIUM 40 MG/VIAL IV SCH ×2 (11:48→21:04)
[2020-05-04] MEDS: TRIAMCINOLONE ACETONIDE 0.1 % OINT 15GM TOP SCH ×2 (11:51→21:04)
[2020-05-04] MEDS: CARBAMAZEPINE 100MG TABLET CHEW PO SCH ×2 (13:24→18:33)
[2020-05-04] MEDS ORDERED: FENTANYL CITRATE/PF 50MCG/ML 2ML VIAL ONE (17:27)
[2020-05-04] MEDS ORDERED: MIDAZOLAM HCL 5 MG/5 ML VIAL ONE (17:27)
[2020-05-04] MEDS: AMIODARONE HCL 200 MG TABLET PO SCH (18:32)
[2020-05-05] VITALS (59 sets, daily range): BP systolic 82–131; BP diastolic 35–79
[2020-05-05] MEDS: SUCRALFATE 1 G/10 ML UDC NG SCH ×4 (00:13→17:42)
[2020-05-05] MEDS: PHENYLEPHRINE 100 MG in DEXT 5% WATER 240 ML IV PRN ×2 (00:14→13:52)
[2020-05-05] MEDS: NYSTATIN 100,000 UNITS/ML 5ML UDC SSW SCH ×3 (00:18→12:00)
[2020-05-05] MEDS: AMIODARONE HCL 200 MG TABLET PO SCH ×4 (00:19→21:38)
[2020-05-05] MEDS: PIPERACILLIN/TAZOBACTAM 3.375 G in DEXT 5% WATER 100 ML IV SCH ×4 (03:00→21:17)
[2020-05-05] MEDS: BLOOD SUGAR DIAGNOSTIC STRIP TEST SCH ×4 (05:50→21:17)
[2020-05-05] MEDS: INSULIN LISPRO 100 UNITS/ML SUBCUT SCH ×4 (05:51→21:00)
[2020-05-05 08:25] LABS: HEMOGLOBIN. 7.5 g/dL (14.0-18.0); MEAN CORPUSCULAR HEMOGLOBIN 31.2 pg (28.0-32.0); MEAN CORPUSCULAR VOLUME 91.4 fL (80.0-94.0); MEAN PLATELET VOLUME 11.3 fl (7.4-10.4); PLATELET 68 x1000/uL (130-400); RED BLOOD CELL COUNT 2.41 mill/uL (4.7-6.1); RED CELL DISTRIBUTION WIDTH 14.9 % (11.6-14.6)
[2020-05-05 08:42] LABS: CHLORIDE 99 mEq/L (98-107)
[2020-05-05] MEDS: TRIAMCINOLONE ACETONIDE 0.1 % OINT 15GM TOP SCH ×2 (09:00→21:18)
[2020-05-05] MEDS: ASCORBIC ACID 500 MG TABLET PO SCH ×2 (09:45→21:17)
[2020-05-05] MEDS: PANTOPRAZOLE SODIUM 40 MG/VIAL IV SCH ×2 (09:45→21:17)
[2020-05-05] MEDS: CARBAMAZEPINE 100MG TABLET CHEW PO SCH ×2 (09:45→21:17)
[2020-05-05] MEDS: THIORIDAZINE HCL 25MG TABLET PO SCH (09:45)
[2020-05-05] MEDS: DIPHENHYDRAMINE 50MG/ML VIAL IV PRN (09:46)
[2020-05-05] MEDS: MIDODRINE HCL 5MG TABLET PO SCH ×3 (09:47→18:11)
[2020-05-05] MEDS ORDERED: SORBITOL 70% SOLN 30ML PO NR (10:30)
[2020-05-05] MEDS: NOREPINEPHRINE 32 MG in DEXT 5% WATER 218 ML IV PRN (13:51)
[2020-05-05 14:05] LABS: PLATELET ESTIMATE DECREASED
[2020-05-05 20:08] LABS: HEMATOCRIT 22.5 % (42.0-52.0); HEMOGLOBIN 7.7 g/dL (14.0-18.0)
[2020-05-05] MEDS: DEXT 5%/0.45% NACL 1000ML 1,000 ML IV SCH (20:42)
[2020-05-05] MEDS: SORBITOL 70% SOLN 30ML PO PRN ×2 (22:20→23:36)
[2020-05-06] VITALS (62 sets, daily range): BP systolic 76–156; BP diastolic 34–97
[2020-05-06] MEDS: SUCRALFATE 1 G/10 ML UDC NG SCH ×5 (00:23→23:03)
[2020-05-06] MEDS: DEXT 5%/0.45% NACL 1000ML 1,000 ML IV SCH (03:58)
[2020-05-06] MEDS: PIPERACILLIN/TAZOBACTAM 3.375 G in DEXT 5% WATER 100 ML IV SCH ×4 (03:58→21:35)
[2020-05-06] MEDS: PHENYLEPHRINE 100 MG in DEXT 5% WATER 240 ML IV PRN ×2 (03:59→23:04)
[2020-05-06] MEDS: VASOPRESSIN 20 UNIT in SODIUM CHLORIDE 0.9% 99 ML IV PRN ×2 (04:00→15:55)
[2020-05-06] MEDS: NOREPINEPHRINE 32 MG in DEXT 5% WATER 218 ML IV PRN ×2 (04:11→23:05)
[2020-05-06] MEDS: AMIODARONE HCL 200 MG TABLET PO SCH ×3 (06:07→21:36)
[2020-05-06 06:59] LABS: CHLORIDE 97 mEq/L (98-107)
[2020-05-06] MEDS: BLOOD SUGAR DIAGNOSTIC STRIP TEST SCH ×4 (07:30→21:00)
[2020-05-06 07:42] LABS: MEAN CORPUSCULAR HEMOGLOBIN 31.4 pg (28.0-32.0); MEAN CORPUSCULAR VOLUME 90.9 fL (80.0-94.0); MEAN PLATELET VOLUME 11.6 fl (7.4-10.4); PLATELET 52 x1000/uL (130-400); RED CELL DISTRIBUTION WIDTH 14.8 % (11.6-14.6)
[2020-05-06] MEDS: INSULIN LISPRO 100 UNITS/ML SUBCUT SCH ×4 (08:00→21:00)
[2020-05-06 08:45] LABS: HEMATOCRIT. 19.1 % (42.0-52.0); HEMOGLOBIN. 6.6 g/dL (14.0-18.0)
[2020-05-06] MEDS ORDERED: POTASSIUM CHLORIDE 20MEQ TABLET SR PO SCH (09:00)
[2020-05-06] MEDS: THIORIDAZINE HCL 25MG TABLET PO SCH (09:31)
[2020-05-06] MEDS: CARBAMAZEPINE 100MG TABLET CHEW PO SCH ×2 (09:31→17:54)
[2020-05-06] MEDS: PANTOPRAZOLE SODIUM 40 MG/VIAL IV SCH ×2 (09:31→21:35)
[2020-05-06] MEDS: TRIAMCINOLONE ACETONIDE 0.1 % OINT 15GM TOP SCH ×2 (09:31→21:36)
[2020-05-06] MEDS: MIDODRINE HCL 5MG TABLET PO SCH ×3 (09:32→18:00)
[2020-05-06] MEDS ORDERED: POTASSIUM CHLORIDE INJ 40 MEQ in SODIUM CHLORIDE 0.9% 250 ML IV SCH (10:00)
[2020-05-06 11:01] LABS: BG BASE EXCESS -2.5 mmol/L (-2.0-2.0); BG CARBOXYHEMOGLOBIN 0.6 % (0.5-1.5); BG DEOXYHEMOGLOBIN 3.7 % (0.0-5.0); BG FRACTION INSPIRED OXYGEN 21; BG HCO3 ACT 21.8 mmol/L (22.0-26.0); BG METHEMOGLOBIN 0.4 % (0.0-1.5); BG OXYGEN SATURATION 96.3 % (92.0-98.5); BG OXYHEMOGLOBIN 95.3 % (94.0-97.0); BG PH 7.413 (7.350-7.450); BG PO2 86.4 mmHg (75.0-100.0); BG SAMPLE SITE RIGHT RADIAL; BG TOTAL HEMOGLOBIN 6.8 g/dL (12.0-18.0); BG VENT MODE ROOM AIR
[2020-05-06] MEDS: ASCORBIC ACID 500 MG TABLET PO SCH ×2 (14:12→21:36)
[2020-05-06 15:18] LABS: HEMATOCRIT 25.5 % (42.0-52.0); HEMOGLOBIN 8.8 g/dL (14.0-18.0)
[2020-05-06 17:32] LABS: PHOSPHORUS 1.6 mg/dL (2.5-4.9)
[2020-05-06 20:49] LABS: PLATELET ESTIMATE MARKEDLY DECREASED
[2020-05-07] VITALS (68 sets, daily range): BP systolic 59–149; BP diastolic 32–73
[2020-05-07] MEDS: VASOPRESSIN 20 UNIT in SODIUM CHLORIDE 0.9% 99 ML IV PRN ×3 (01:38→18:19)
[2020-05-07] MEDS: PIPERACILLIN/TAZOBACTAM 3.375 G in DEXT 5% WATER 100 ML IV SCH ×2 (03:38→10:30)
[2020-05-07] MEDS: SUCRALFATE 1 G/10 ML UDC NG SCH ×4 (05:29→23:19)
[2020-05-07] MEDS: AMIODARONE HCL 200 MG TABLET PO SCH ×3 (05:30→21:11)
[2020-05-07 06:11] LABS: CHLORIDE 94 mEq/L (98-107)
[2020-05-07 06:46] LABS: HEMATOCRIT. 27.9 % (42.0-52.0); HEMOGLOBIN. 9.6 g/dL (14.0-18.0); MEAN CORPUSCULAR HEMOGLOBIN 30.3 pg (28.0-32.0); MEAN CORPUSCULAR VOLUME 87.6 fL (80.0-94.0); RED BLOOD CELL COUNT 3.18 mill/uL (4.7-6.1); RED CELL DISTRIBUTION WIDTH 16.9 % (11.6-14.6)
[2020-05-07 06:50] LABS: PLATELET 46 x1000/uL (130-400)
[2020-05-07] MEDS: BLOOD SUGAR DIAGNOSTIC STRIP TEST SCH ×3 (07:30→21:00)
[2020-05-07] MEDS: INSULIN LISPRO 100 UNITS/ML SUBCUT SCH ×3 (08:00→21:00)
[2020-05-07] MEDS: CARBAMAZEPINE 100MG TABLET CHEW PO SCH ×2 (10:31→18:09)
[2020-05-07] MEDS: MIDODRINE HCL 5MG TABLET PO SCH ×3 (10:31→18:09)
[2020-05-07] MEDS: PANTOPRAZOLE SODIUM 40 MG/VIAL IV SCH ×2 (10:32→21:11)
[2020-05-07] MEDS: ASCORBIC ACID 500 MG TABLET PO SCH ×2 (10:32→21:11)
[2020-05-07] MEDS: PHENYLEPHRINE 100 MG in DEXT 5% WATER 240 ML IV PRN ×2 (10:35→23:20)
[2020-05-07] MEDS: NOREPINEPHRINE 32 MG in DEXT 5% WATER 218 ML IV PRN ×2 (10:37→22:30)
[2020-05-07] MEDS ORDERED: POTASSIUM CHLORIDE 20MEQ/PACKET PO NR (10:45)
[2020-05-07] MEDS: THIORIDAZINE HCL 25MG TABLET PO SCH (12:09)
[2020-05-07] MEDS: TRIAMCINOLONE ACETONIDE 0.1 % OINT 15GM TOP SCH ×2 (12:11→21:12)
[2020-05-07] MEDS ORDERED: SODIUM CHLORIDE 3% 500 ML IV ONE (13:00)
[2020-05-07] MEDS ORDERED: VANCOMYCIN 1 G PREMIX 200 ML IV SCH (14:00)
[2020-05-07] MEDS: CEFEPIME 2,000 MG in DEXT 5% WATER 100 ML IV SCH ×2 (14:24→21:12)
[2020-05-07] MEDS ORDERED: SODIUM CHLORIDE 3% 180 ML IV SCH (15:00)
[2020-05-07 22:14] LABS: PLATELET ESTIMATE MARKEDLY DECREASED
[2020-05-08] VITALS (95 sets, daily range): BP systolic 50–141; BP diastolic 21–94
[2020-05-08 01:51] LABS: CHLORIDE 94 mEq/L (98-107)
[2020-05-08] MEDS: IPRATROPIUM/ALBUTEROL 0.5-3(2.5)MG/3ML NEB HHN SCH ×3 (02:20→20:35)
[2020-05-08] MEDS: VASOPRESSIN 20 UNIT in SODIUM CHLORIDE 0.9% 99 ML IV PRN ×3 (04:01→23:27)
[2020-05-08] MEDS: SODIUM CHLORIDE 0.9% 1,000 ML IV SCH (05:09)
[2020-05-08] MEDS: VANCOMYCIN 750 MG PREMIX 150 ML IV SCH (05:21)
[2020-05-08] MEDS: SUCRALFATE 1 G/10 ML UDC NG SCH ×3 (05:21→18:06)
[2020-05-08] MEDS: AMIODARONE HCL 200 MG TABLET PO SCH ×3 (05:21→21:25)
[2020-05-08] MEDS: PIPERACILLIN/TAZOBACTAM 3.375 G in DEXT 5% WATER 100 ML IV SCH (05:22)
[2020-05-08] MEDS: CEFEPIME 2,000 MG in DEXT 5% WATER 100 ML IV SCH ×3 (05:26→21:25)
[2020-05-08 06:05] LABS: BASOPHILS % 0.3 % (0.0-2.0); EOSINOPHILS % 4.7 % (0.0-5.0); HEMATOCRIT. 28.9 % (42.0-52.0); HEMOGLOBIN. 10.1 g/dL (14.0-18.0); LYMPHOCYTES % 9.7 % (20.0-50.0); MEAN CORPUSCULAR HEMOGLOBIN 30.7 pg (28.0-32.0); MEAN CORPUSCULAR VOLUME 88.2 fL (80.0-94.0); MEAN PLATELET VOLUME 11.3 fl (7.4-10.4); MONOCYTES % 4.6 % (2.0-8.0); NEUTROPHILS % 80.7 % (40.0-76.0); RED BLOOD CELL COUNT 3.28 mill/uL (4.7-6.1); RED CELL DISTRIBUTION WIDTH 16.8 % (11.6-14.6)
[2020-05-08 07:01] LABS: CHLORIDE 94 mEq/L (98-107)
[2020-05-08] MEDS: BLOOD SUGAR DIAGNOSTIC STRIP TEST SCH ×4 (07:30→21:24)
[2020-05-08 07:36] LABS: PLATELET 45 x1000/uL (130-400)
[2020-05-08] MEDS: INSULIN LISPRO 100 UNITS/ML SUBCUT SCH ×4 (08:00→21:00)
[2020-05-08] MEDS ORDERED: ALBUMIN HUMAN 25GM/100ML (25%) IV SCH (09:00)
[2020-05-08] MEDS: MIDODRINE HCL 5MG TABLET PO SCH ×3 (09:00→18:08)
[2020-05-08 09:44] LABS: BG BASE EXCESS 1.1 mmol/L (-2.0-2.0); BG CARBOXYHEMOGLOBIN 0.3 % (0.5-1.5); BG DEOXYHEMOGLOBIN 14.7 % (0.0-5.0); BG FRACTION INSPIRED OXYGEN 44; BG HCO3 ACT 27.3 mmol/L (22.0-26.0); BG METHEMOGLOBIN 0.3 % (0.0-1.5); BG OXYGEN SATURATION 85.2 % (92.0-98.5); BG OXYHEMOGLOBIN 84.7 % (94.0-97.0); BG PCO2 50.9 mmHg (35.0-45.0); BG PH 7.347 (7.350-7.450); BG PO2 50.8 mmHg (75.0-100.0); BG TOTAL HEMOGLOBIN 9.9 g/dL (12.0-18.0); BG VENT MODE NASAL CANNULA
[2020-05-08] MEDS: PHENYLEPHRINE 100 MG in DEXT 5% WATER 240 ML IV PRN ×2 (11:54→23:27)
[2020-05-08] MEDS: NOREPINEPHRINE 32 MG in DEXT 5% WATER 218 ML IV PRN ×2 (11:55→23:27)
[2020-05-08] MEDS: SORBITOL 70% SOLN 30ML PO PRN (12:32)
[2020-05-08] MEDS: PANTOPRAZOLE SODIUM 40 MG/VIAL IV SCH ×2 (12:32→21:26)
[2020-05-08] MEDS: LAMOTRIGINE 100MG TABLET PO SCH (12:32)
[2020-05-08] MEDS: THIORIDAZINE HCL 25MG TABLET PO SCH (12:33)
[2020-05-08] MEDS: ASCORBIC ACID 500 MG TABLET PO SCH ×2 (12:33→21:26)
[2020-05-08] MEDS: TRIAMCINOLONE ACETONIDE 0.1 % OINT 15GM TOP SCH ×2 (12:35→21:27)
[2020-05-08 13:31] LABS: BG BASE EXCESS 1.5 mmol/L (-2.0-2.0); BG CARBOXYHEMOGLOBIN 0.3 % (0.5-1.5); BG DEOXYHEMOGLOBIN 20.9 % (0.0-5.0); BG FRACTION INSPIRED OXYGEN 100; BG HCO3 ACT 27.6 mmol/L (22.0-26.0); BG METHEMOGLOBIN 0.3 % (0.0-1.5); BG OXYHEMOGLOBIN 78.5 % (94.0-97.0); BG PCO2 50.8 mmHg (35.0-45.0); BG PH 7.353 (7.350-7.450); BG PO2 44.4 mmHg (75.0-100.0); BG SAMPLE SITE RIGHT RADIAL; BG TOTAL HEMOGLOBIN 9.8 g/dL (12.0-18.0); BG VENT MODE HIGH FLOW
[2020-05-08] MEDS: PROPOFOL 10MG/ML 100ML 100 ML IV PRN (13:53)
[2020-05-08 14:51] LABS: BG BASE EXCESS -0.4 mmol/L (-2.0-2.0); BG CARBOXYHEMOGLOBIN 0.1 % (0.5-1.5); BG DEOXYHEMOGLOBIN 0.9 % (0.0-5.0); BG FRACTION INSPIRED OXYGEN 100; BG HCO3 ACT 24.7 mmol/L (22.0-26.0); BG METHEMOGLOBIN 0.1 % (0.0-1.5); BG OXYGEN SATURATION 99.1 % (92.0-98.5); BG OXYHEMOGLOBIN 98.9 % (94.0-97.0); BG PCO2 42.2 mmHg (35.0-45.0); BG PH 7.385 (7.350-7.450); BG PO2 236.7 mmHg (75.0-100.0); BG SAMPLE SITE RIGHT RADIAL; BG TOTAL HEMOGLOBIN 10.5 g/dL (12.0-18.0); BG VENT MODE VENT - AC
[2020-05-08] MEDS: HYDROCORTISONE SOD SUCCINATE 100 MG/2 ML VIAL IV SCH ×2 (18:06→21:26)
[2020-05-08] MEDS: MICAFUNGIN 150 MG in SODIUM CHLORIDE 0.9% 100 ML IV SCH (18:09)
[2020-05-09] VITALS (97 sets, daily range): BP systolic 86–147; BP diastolic 46–90
[2020-05-09] MEDS: VANCOMYCIN 750 MG PREMIX 150 ML IV SCH (00:05)
[2020-05-09] MEDS: SUCRALFATE 1 G/10 ML UDC NG SCH ×5 (00:05→23:28)
[2020-05-09] MEDS: ACETYLCYSTEINE 100MG/ML 10% VIAL 4ML INH SCH ×4 (02:20→23:59)
[2020-05-09] MEDS: PROPOFOL 10MG/ML 100ML 100 ML IV PRN ×3 (03:56→23:50)
[2020-05-09] MEDS: SODIUM CHLORIDE 0.9% 1,000 ML IV SCH ×2 (05:00→23:19)
[2020-05-09 05:58] LABS: CHLORIDE 93 mEq/L (98-107)
[2020-05-09] MEDS ORDERED: PERMETHRIN 5% CREAM 60GM TOP NR (06:00)
[2020-05-09] MEDS: AMIODARONE HCL 200 MG TABLET PO SCH ×3 (06:18→21:28)
[2020-05-09] MEDS: CEFEPIME 2,000 MG in DEXT 5% WATER 100 ML IV SCH ×3 (06:18→21:29)
[2020-05-09 06:57] LABS: HEMATOCRIT. 26.2 % (42.0-52.0); HEMOGLOBIN. 8.9 g/dL (14.0-18.0); MEAN CORPUSCULAR HEMOGLOBIN 30.2 pg (28.0-32.0); MEAN CORPUSCULAR VOLUME 88.5 fL (80.0-94.0); RED BLOOD CELL COUNT 2.96 mill/uL (4.7-6.1); RED CELL DISTRIBUTION WIDTH 16.2 % (11.6-14.6)
[2020-05-09] MEDS: BLOOD SUGAR DIAGNOSTIC STRIP TEST SCH ×4 (07:30→21:20)
[2020-05-09] MEDS: HYDROCORTISONE SOD SUCCINATE 100 MG/2 ML VIAL IV SCH ×3 (07:44→21:28)
[2020-05-09] MEDS: INSULIN LISPRO 100 UNITS/ML SUBCUT SCH ×4 (08:00→21:00)
[2020-05-09] MEDS: IPRATROPIUM/ALBUTEROL 0.5-3(2.5)MG/3ML NEB HHN SCH ×3 (08:19→20:19)
[2020-05-09 08:43] LABS: PLATELET 60 x1000/uL (130-400)
[2020-05-09 08:54] LABS: PLATELET ESTIMATE DECREASED
[2020-05-09] MEDS: TRIAMCINOLONE ACETONIDE 0.1 % OINT 15GM TOP SCH ×2 (09:00→21:30)
[2020-05-09] MEDS: THIORIDAZINE HCL 25MG TABLET PO SCH (09:05)
[2020-05-09] MEDS: MIDODRINE HCL 5MG TABLET PO SCH ×3 (09:06→18:03)
[2020-05-09] MEDS: ASCORBIC ACID 500 MG TABLET PO SCH ×2 (09:06→21:28)
[2020-05-09] MEDS: LAMOTRIGINE 100MG TABLET PO SCH (09:10)
[2020-05-09] MEDS: VASOPRESSIN 20 UNIT in SODIUM CHLORIDE 0.9% 99 ML IV PRN ×2 (09:13→18:02)
[2020-05-09 10:17] LABS: BG BASE EXCESS 0.4 mmol/L (-2.0-2.0); BG CARBOXYHEMOGLOBIN 0.3 % (0.5-1.5); BG DEOXYHEMOGLOBIN 5.6 % (0.0-5.0); BG FRACTION INSPIRED OXYGEN 70; BG HCO3 ACT 27.1 mmol/L (22.0-26.0); BG METHEMOGLOBIN 0.2 % (0.0-1.5); BG OXYGEN SATURATION 94.4 % (92.0-98.5); BG OXYHEMOGLOBIN 93.9 % (94.0-97.0); BG PCO2 55.5 mmHg (35.0-45.0); BG PH 7.307 (7.350-7.450); BG PO2 73.7 mmHg (75.0-100.0); BG SAMPLE SITE RIGHT RADIAL; BG TOTAL HEMOGLOBIN 8.8 g/dL (12.0-18.0); BG VENT MODE VENT - AC
[2020-05-09] MEDS: NOREPINEPHRINE 32 MG in DEXT 5% WATER 218 ML IV PRN ×2 (11:29→23:48)
[2020-05-09] MEDS: VANCOMYCIN 1 G PREMIX 200 ML IV SCH ×2 (13:03→23:28)
[2020-05-09] MEDS: METOCLOPRAMIDE HCL 10MG/2ML VIAL IV SCH ×3 (13:13→23:28)
[2020-05-09] MEDS: PHENYLEPHRINE 100 MG in DEXT 5% WATER 240 ML IV PRN (13:20)
[2020-05-09] MEDS: MICAFUNGIN 150 MG in SODIUM CHLORIDE 0.9% 100 ML IV SCH (18:11)
[2020-05-10] VITALS (60 sets, daily range): BP systolic 83–135; BP diastolic 37–88
[2020-05-10] MEDS: PHENYLEPHRINE 100 MG in DEXT 5% WATER 240 ML IV PRN (03:17)
[2020-05-10] MEDS: IPRATROPIUM/ALBUTEROL 0.5-3(2.5)MG/3ML NEB HHN SCH ×5 (04:18→21:00)
[2020-05-10] MEDS: METOCLOPRAMIDE HCL 10MG/2ML VIAL IV SCH ×2 (05:54→12:50)
[2020-05-10] MEDS: AMIODARONE HCL 200 MG TABLET PO SCH ×3 (05:54→22:26)
[2020-05-10] MEDS: HYDROCORTISONE SOD SUCCINATE 100 MG/2 ML VIAL IV SCH ×3 (05:54→22:27)
[2020-05-10] MEDS: SUCRALFATE 1 G/10 ML UDC NG SCH ×2 (05:54→12:49)
[2020-05-10] MEDS: CEFEPIME 2,000 MG in DEXT 5% WATER 100 ML IV SCH ×3 (05:55→22:26)
[2020-05-10 07:16] LABS: HEMATOCRIT. 25.6 % (42.0-52.0); HEMOGLOBIN. 8.8 g/dL (14.0-18.0); MEAN CORPUSCULAR HEMOGLOBIN 30.6 pg (28.0-32.0); MEAN CORPUSCULAR VOLUME 88.4 fL (80.0-94.0); MEAN PLATELET VOLUME 8.9 fl (7.4-10.4); PLATELET 85 x1000/uL (130-400); RED BLOOD CELL COUNT 2.89 mill/uL (4.7-6.1); RED CELL DISTRIBUTION WIDTH 16.5 % (11.6-14.6)
[2020-05-10 07:25] LABS: CHLORIDE 91 mEq/L (98-107)
[2020-05-10] MEDS: BLOOD SUGAR DIAGNOSTIC STRIP TEST SCH ×3 (07:30→21:00)
[2020-05-10 07:39] LABS: PHOSPHORUS 2.2 mg/dL (2.5-4.9)
[2020-05-10] MEDS: INSULIN LISPRO 100 UNITS/ML SUBCUT SCH ×3 (08:00→21:00)
[2020-05-10] MEDS: ACETYLCYSTEINE 100MG/ML 10% VIAL 4ML INH SCH ×2 (08:22→16:49)
[2020-05-10] MEDS ORDERED: SODIUM CHLORIDE 3% 180 ML IV NR (09:00)
[2020-05-10] MEDS: TRIAMCINOLONE ACETONIDE 0.1 % OINT 15GM TOP SCH ×2 (09:00→22:31)
[2020-05-10] MEDS ORDERED: POTASSIUM CHLORIDE 20MEQ/PACKET PO SCH (09:45)
[2020-05-10] MEDS: MIDODRINE HCL 5MG TABLET PO SCH ×2 (10:03→12:50)
[2020-05-10] MEDS: LAMOTRIGINE 100MG TABLET PO SCH (10:04)
[2020-05-10] MEDS: THIORIDAZINE HCL 25MG TABLET PO SCH (10:04)
[2020-05-10] MEDS: ASCORBIC ACID 500 MG TABLET PO SCH ×2 (10:04→22:28)
[2020-05-10 10:25] LABS: BG BASE EXCESS 2.1 mmol/L (-2.0-2.0); BG CARBOXYHEMOGLOBIN 0.3 % (0.5-1.5); BG DEOXYHEMOGLOBIN 0.9 % (0.0-5.0); BG FRACTION INSPIRED OXYGEN 70; BG HCO3 ACT 28.8 mmol/L (22.0-26.0); BG METHEMOGLOBIN 0.3 % (0.0-1.5); BG OXYGEN SATURATION 99.1 % (92.0-98.5); BG OXYHEMOGLOBIN 98.5 % (94.0-97.0); BG PCO2 56.1 mmHg (35.0-45.0); BG PH 7.328 (7.350-7.450); BG PO2 259.5 mmHg (75.0-100.0); BG SAMPLE SITE RIGHT RADIAL; BG TOTAL HEMOGLOBIN 9.3 g/dL (12.0-18.0); BG TOTAL RESPIRATORY RATE 18 b/min; BG VENT MODE VENT - AC
[2020-05-10] MEDS ORDERED: POTASSIUM PHOS,M-BASIC-D-BASIC 20 MMOL in DEXT 5% WATER 250 ML IV SCH (11:00)
[2020-05-10] MEDS: NOREPINEPHRINE 32 MG in DEXT 5% WATER 218 ML IV PRN (12:06)
[2020-05-10] MEDS: VANCOMYCIN 1 G PREMIX 200 ML IV SCH ×2 (13:15→23:53)
[2020-05-10 14:13] LABS: PLATELET ESTIMATE DECREASED
[2020-05-10] MEDS: DOCUSATE SODIUM SUGAR FREE 100MG/10ML UDC NG SCH (15:11)
[2020-05-10] MEDS: MICAFUNGIN 150 MG in SODIUM CHLORIDE 0.9% 100 ML IV SCH (16:33)
[2020-05-10] MEDS: SODIUM CHLORIDE 0.9% 1,000 ML IV SCH (16:50)
[2020-05-11] VITALS (92 sets, daily range): BP systolic 45–140; BP diastolic 32–91
[2020-05-11 00:02] LABS: CHLORIDE 124 mEq/L (98-107)
[2020-05-11] MEDS ORDERED: PROPOFOL 10MG/ML 100ML 100 ML IV PRN (00:30)
[2020-05-11] MEDS: PROPOFOL 10MG/ML 100ML 100 ML IV PRN (00:52)
[2020-05-11] MEDS: NOREPINEPHRINE 32 MG in DEXT 5% WATER 218 ML IV PRN ×2 (01:17→19:02)
[2020-05-11 02:00] LABS: CLARITY URINE CLEAR (CLEAR); COLOR URINE YELLOW (YELLOW); KETONES URINE NEGATIVE (NEGATIVE); LEUKOCYTE ESTERASE URINE NEGATIVE (NEGATIVE); NITRITE URINE NEGATIVE (NEGATIVE); OCCULT BLOOD URINE NEGATIVE (NEGATIVE); PH URINE 6.5 (4.5-8.0); PROTEIN URINE NEGATIVE (NEGATIVE); SPECIFIC GRAVITY URINE 1.004 (1.005-1.030); UROBILINOGEN URINE 0.2 E.U./dL (0.2-1.0)
[2020-05-11] MEDS: ACETYLCYSTEINE 100MG/ML 10% VIAL 4ML INH SCH ×2 (03:20→09:04)
[2020-05-11] MEDS: IPRATROPIUM/ALBUTEROL 0.5-3(2.5)MG/3ML NEB HHN SCH ×4 (03:20→22:12)
[2020-05-11] MEDS: AMIODARONE HCL 200 MG TABLET PO SCH (05:39)
[2020-05-11] MEDS: METOCLOPRAMIDE HCL 10MG/2ML VIAL IV SCH ×4 (05:39→17:43)
[2020-05-11] MEDS: HYDROCORTISONE SOD SUCCINATE 100 MG/2 ML VIAL IV SCH ×3 (05:40→20:52)
[2020-05-11] MEDS: SUCRALFATE 1 G/10 ML UDC NG SCH ×4 (05:43→17:43)
[2020-05-11] MEDS: PHENYLEPHRINE 100 MG in DEXT 5% WATER 240 ML IV PRN ×3 (05:47→19:03)
[2020-05-11 06:21] LABS: HEMATOCRIT. 28.2 % (42.0-52.0); HEMOGLOBIN. 9.7 g/dL (14.0-18.0); MEAN CORPUSCULAR HEMOGLOBIN 31.3 pg (28.0-32.0); MEAN CORPUSCULAR VOLUME 90.6 fL (80.0-94.0); MEAN PLATELET VOLUME 8.2 fl (7.4-10.4); PLATELET 123 x1000/uL (130-400); RED BLOOD CELL COUNT 3.11 mill/uL (4.7-6.1); RED CELL DISTRIBUTION WIDTH 16.7 % (11.6-14.6)
[2020-05-11] MEDS: BLOOD SUGAR DIAGNOSTIC STRIP TEST SCH ×4 (06:59→20:53)
[2020-05-11] MEDS: DEXTROSE 5% WATER 1,000 ML IV SCH ×3 (07:06→22:20)
[2020-05-11 07:52] LABS: CHLORIDE 127 mEq/L (98-107)
[2020-05-11] MEDS: INSULIN LISPRO 100 UNITS/ML SUBCUT SCH ×4 (08:00→20:53)
[2020-05-11] MEDS: DOCUSATE SODIUM SUGAR FREE 100MG/10ML UDC NG SCH (09:40)
[2020-05-11] MEDS: ASCORBIC ACID 500 MG TABLET PO SCH ×2 (09:40→20:52)
[2020-05-11] MEDS: LAMOTRIGINE 100MG TABLET PO SCH (09:40)
[2020-05-11] MEDS: MIDODRINE HCL 5MG TABLET PO SCH ×4 (09:41→17:43)
[2020-05-11] MEDS: THIORIDAZINE HCL 25MG TABLET PO SCH (09:51)
[2020-05-11] MEDS: TRIAMCINOLONE ACETONIDE 0.1 % OINT 15GM TOP SCH ×2 (09:55→20:53)
[2020-05-11] MEDS ORDERED: POTASSIUM CHLORIDE INJ 60 MEQ in DEXT 5% WATER 500 ML IV SCH (10:00)
[2020-05-11] MEDS ORDERED: MIDAZOLAM HCL 100 MG in SODIUM CHLORIDE 0.9% 80 ML IV PRN (10:15)
[2020-05-11 10:29] LABS: BG BASE EXCESS 5.1 mmol/L (-2.0-2.0); BG CARBOXYHEMOGLOBIN 0.3 % (0.5-1.5); BG FRACTION INSPIRED OXYGEN 40; BG HCO3 ACT 31.3 mmol/L (22.0-26.0); BG OXYHEMOGLOBIN 97.7 % (94.0-97.0); BG PCO2 56.5 mmHg (35.0-45.0); BG PH 7.362 (7.350-7.450); BG PO2 137.7 mmHg (75.0-100.0); BG SAMPLE SITE RIGHT RADIAL; BG TOTAL HEMOGLOBIN 8.8 g/dL (12.0-18.0); BG VENT MODE VENT - AC
[2020-05-11] MEDS ORDERED: SODIUM CHLORIDE 0.9% 1,000 ML IV SCH (11:15)
[2020-05-11] MEDS ORDERED: SODIUM CHLORIDE 0.9% 1000ML BAG (SEPSIS BOLUS) IV ONE (11:15)
[2020-05-11] MEDS: FENTANYL CITRATE/PF 1,000 MCG in SODIUM CHLORIDE 0.9% 80 ML IV PRN ×2 (11:56→19:02)
[2020-05-11 14:21] LABS: PLATELET ESTIMATE DECREASED
[2020-05-11] MEDS: VANCOMYCIN 1 G PREMIX 200 ML IV SCH (14:33)
[2020-05-11] MEDS: MICAFUNGIN 150 MG in SODIUM CHLORIDE 0.9% 100 ML IV SCH (16:33)
[2020-05-11 18:41] LABS: PHOSPHORUS 1.8 mg/dL (2.5-4.9)
[2020-05-11] MEDS: DESMOPRESSIN ACETATE 0.1MG TABLET PO SCH (20:51)
[2020-05-12] VITALS (103 sets, daily range): BP systolic 80–138; BP diastolic 37–87
[2020-05-12] MEDS: SUCRALFATE 1 G/10 ML UDC NG SCH ×5 (00:07→23:36)
[2020-05-12] MEDS: METOCLOPRAMIDE HCL 10MG/2ML VIAL IV SCH ×5 (00:07→23:36)
[2020-05-12] MEDS: DEXTROSE 5% WATER 1,000 ML IV SCH ×2 (00:08→11:40)
[2020-05-12] MEDS: IPRATROPIUM/ALBUTEROL 0.5-3(2.5)MG/3ML NEB HHN SCH ×4 (02:33→22:31)
[2020-05-12] MEDS: ACETYLCYSTEINE 100MG/ML 10% VIAL 4ML INH SCH ×3 (02:34→22:31)
[2020-05-12] MEDS: MIDAZOLAM HCL 100 MG in DEXT 5% WATER 80 ML IV PRN (03:23)
[2020-05-12 04:00] LABS: HEMATOCRIT. 23.2 % (42.0-52.0); HEMOGLOBIN. 7.8 g/dL (14.0-18.0); MEAN CORPUSCULAR HEMOGLOBIN 30.6 pg (28.0-32.0); MEAN CORPUSCULAR VOLUME 90.5 fL (80.0-94.0); MEAN PLATELET VOLUME 7.2 fl (7.4-10.4); PLATELET 126 x1000/uL (130-400); RED BLOOD CELL COUNT 2.56 mill/uL (4.7-6.1)
[2020-05-12 04:13] LABS: CHLORIDE 119 mEq/L (98-107)
[2020-05-12] MEDS: HYDROCORTISONE SOD SUCCINATE 100 MG/2 ML VIAL IV SCH ×3 (06:06→20:28)
[2020-05-12] MEDS: PHENYLEPHRINE 100 MG in DEXT 5% WATER 240 ML IV PRN ×2 (06:07→20:16)
[2020-05-12] MEDS: NOREPINEPHRINE 32 MG in DEXT 5% WATER 218 ML IV PRN ×2 (06:08→20:17)
[2020-05-12] MEDS: BLOOD SUGAR DIAGNOSTIC STRIP TEST SCH ×4 (07:30→20:10)
[2020-05-12] MEDS: INSULIN LISPRO 100 UNITS/ML SUBCUT SCH ×4 (08:00→20:10)
[2020-05-12] MEDS: MIDODRINE HCL 5MG TABLET PO SCH ×3 (09:55→17:15)
[2020-05-12] MEDS: LAMOTRIGINE 100MG TABLET PO SCH (09:55)
[2020-05-12] MEDS: DESMOPRESSIN ACETATE 0.1MG TABLET PO SCH ×2 (09:55→20:29)
[2020-05-12] MEDS: THIORIDAZINE HCL 25MG TABLET PO SCH (09:56)
[2020-05-12] MEDS: AMIODARONE HCL 200 MG TABLET PO SCH (09:56)
[2020-05-12] MEDS: TRIAMCINOLONE ACETONIDE 0.1 % OINT 15GM TOP SCH ×2 (09:56→20:28)
[2020-05-12] MEDS: ASCORBIC ACID 500 MG TABLET PO SCH ×2 (09:56→20:28)
[2020-05-12] MEDS ORDERED: POTASSIUM CHLORIDE 20MEQ/PACKET PO NR (10:15)
[2020-05-12 10:56] LABS: BG BASE EXCESS 7.8 mmol/L (-2.0-2.0); BG CARBOXYHEMOGLOBIN 0.3 % (0.5-1.5); BG DEOXYHEMOGLOBIN 2.1 % (0.0-5.0); BG HCO3 ACT 33.5 mmol/L (22.0-26.0); BG METHEMOGLOBIN 0.6 % (0.0-1.5); BG OXYGEN SATURATION 97.9 % (92.0-98.5); BG PCO2 55.4 mmHg (35.0-45.0); BG PO2 135.3 mmHg (75.0-100.0); BG SAMPLE SITE RIGHT RADIAL; BG TOTAL HEMOGLOBIN 7.6 g/dL (12.0-18.0); BG VENT MODE VENT - AC
[2020-05-12] MEDS: DOCUSATE SODIUM SUGAR FREE 100MG/10ML UDC NG SCH (12:15)
[2020-05-12] MEDS: POLYETHYLENE GLYCOL 3350 (17GM) 1 DOSE PACK PO SCH (12:15)
[2020-05-12] MEDS ORDERED: VASOPRESSIN 20 UNIT/ML 1ML IV SCH (14:00)
[2020-05-12] MEDS: MICAFUNGIN 150 MG in SODIUM CHLORIDE 0.9% 100 ML IV SCH (16:33)
[2020-05-12 16:49] LABS: T4 FREE 1.02 ng/dL (0.76-1.46)
[2020-05-13] VITALS (104 sets, daily range): BP systolic 64–140; BP diastolic 27–75
[2020-05-13] MEDS: DEXTROSE 5% WATER 1,000 ML IV SCH (01:33)
[2020-05-13] MEDS: IPRATROPIUM/ALBUTEROL 0.5-3(2.5)MG/3ML NEB HHN SCH ×5 (02:29→20:11)
[2020-05-13 04:13] LABS: CHLORIDE 110 mEq/L (98-107)
[2020-05-13 04:23] LABS: BASOPHILS % 0.1 % (0.0-2.0); LYMPHOCYTES % 15.9 % (20.0-50.0); MEAN CORPUSCULAR HEMOGLOBIN 30.1 pg (28.0-32.0); MEAN CORPUSCULAR VOLUME 90.7 fL (80.0-94.0); MEAN PLATELET VOLUME 7.9 fl (7.4-10.4); MONOCYTES % 3.4 % (2.0-8.0); NEUTROPHILS % 80.6 % (40.0-76.0); PLATELET 110 x1000/uL (130-400); RED BLOOD CELL COUNT 2.22 mill/uL (4.7-6.1); RED CELL DISTRIBUTION WIDTH 16.8 % (11.6-14.6)
[2020-05-13 04:45] LABS: HEMOGLOBIN. 6.7 g/dL (14.0-18.0)
[2020-05-13 04:46] LABS: HEMATOCRIT. 20.2 % (42.0-52.0)
[2020-05-13] MEDS: HYDROCORTISONE SOD SUCCINATE 100 MG/2 ML VIAL IV SCH ×3 (05:29→21:01)
[2020-05-13] MEDS: SUCRALFATE 1 G/10 ML UDC NG SCH ×4 (05:29→23:38)
[2020-05-13] MEDS: METOCLOPRAMIDE HCL 10MG/2ML VIAL IV SCH ×4 (05:29→23:38)
[2020-05-13] MEDS: BLOOD SUGAR DIAGNOSTIC STRIP TEST SCH ×4 (07:30→20:33)
[2020-05-13] MEDS: INSULIN LISPRO 100 UNITS/ML SUBCUT SCH ×4 (08:00→20:33)
[2020-05-13] MEDS: TRIAMCINOLONE ACETONIDE 0.1 % OINT 15GM TOP SCH ×2 (09:00→21:01)
[2020-05-13] MEDS: DOCUSATE SODIUM SUGAR FREE 100MG/10ML UDC NG SCH (09:00)
[2020-05-13] MEDS: NOREPINEPHRINE 32 MG in DEXT 5% WATER 218 ML IV PRN ×2 (09:09→21:01)
[2020-05-13] MEDS: THIORIDAZINE HCL 25MG TABLET PO SCH (10:55)
[2020-05-13] MEDS: AMIODARONE HCL 200 MG TABLET PO SCH (10:56)
[2020-05-13] MEDS: ASCORBIC ACID 500 MG TABLET PO SCH ×2 (10:56→21:00)
[2020-05-13] MEDS: MIDODRINE HCL 5MG TABLET PO SCH ×3 (10:56→17:00)
[2020-05-13] MEDS: LAMOTRIGINE 100MG TABLET PO SCH (10:56)
[2020-05-13] MEDS: DESMOPRESSIN ACETATE 0.1MG TABLET PO SCH (10:57)
[2020-05-13] MEDS: POLYETHYLENE GLYCOL 3350 (17GM) 1 DOSE PACK PO SCH (10:57)
[2020-05-13] MEDS: ACETAMINOPHEN 325MG TABLET PO PRN (10:58)
[2020-05-13 12:30] LABS: BG BASE EXCESS 10.9 mmol/L (-2.0-2.0); BG CARBOXYHEMOGLOBIN 0.3 % (0.5-1.5); BG DEOXYHEMOGLOBIN 1.3 % (0.0-5.0); BG FRACTION INSPIRED OXYGEN 40; BG HCO3 ACT 34.4 mmol/L (22.0-26.0); BG METHEMOGLOBIN 0.2 % (0.0-1.5); BG OXYGEN SATURATION 98.7 % (92.0-98.5); BG OXYHEMOGLOBIN 98.2 % (94.0-97.0); BG PH 7.542 (7.350-7.450); BG PO2 148.1 mmHg (75.0-100.0); BG SAMPLE SITE RIGHT RADIAL; BG TOTAL HEMOGLOBIN 6.4 g/dL (12.0-18.0); BG VENT MODE VENT - AC
[2020-05-13] MEDS: MIDAZOLAM HCL 100 MG in DEXT 5% WATER 80 ML IV PRN (12:58)
[2020-05-13] MEDS: ACETYLCYSTEINE 100MG/ML 10% VIAL 4ML INH SCH (15:17)
[2020-05-13 15:54] LABS: PLATELET ESTIMATE SLIGHTLY DECREASED
[2020-05-13] MEDS: MICAFUNGIN 150 MG in SODIUM CHLORIDE 0.9% 100 ML IV SCH (16:00)
[2020-05-13 20:05] LABS: BASOPHILS % 0.1 % (0.0-2.0); EOSINOPHILS % 0.1 % (0.0-5.0); HEMOGLOBIN. 9.5 g/dL (14.0-18.0); LYMPHOCYTES % 8.7 % (20.0-50.0); MEAN CORPUSCULAR HEMOGLOBIN 30.7 pg (28.0-32.0); MEAN CORPUSCULAR VOLUME 90.1 fL (80.0-94.0); MEAN PLATELET VOLUME 7.7 fl (7.4-10.4); MONOCYTES % 1.3 % (2.0-8.0); NEUTROPHILS % 89.8 % (40.0-76.0); PLATELET 99 x1000/uL (130-400); RED CELL DISTRIBUTION WIDTH 15.9 % (11.6-14.6)
[2020-05-14] VITALS (62 sets, daily range): BP systolic 78–146; BP diastolic 44–79
[2020-05-14] MEDS: IPRATROPIUM/ALBUTEROL 0.5-3(2.5)MG/3ML NEB HHN SCH ×4 (02:25→20:46)
[2020-05-14] MEDS: PHENYLEPHRINE 100 MG in DEXT 5% WATER 240 ML IV PRN (03:20)
[2020-05-14 04:01] LABS: CHLORIDE 105 mEq/L (98-107)
[2020-05-14 04:09] LABS: HEMATOCRIT. 29.3 % (42.0-52.0); HEMOGLOBIN. 9.9 g/dL (14.0-18.0); MEAN CORPUSCULAR HEMOGLOBIN 30.5 pg (28.0-32.0); MEAN CORPUSCULAR VOLUME 90.1 fL (80.0-94.0); MEAN PLATELET VOLUME 7.8 fl (7.4-10.4); PLATELET 99 x1000/uL (130-400); RED BLOOD CELL COUNT 3.25 mill/uL (4.7-6.1); RED CELL DISTRIBUTION WIDTH 16.2 % (11.6-14.6)
[2020-05-14] MEDS: HYDROCORTISONE SOD SUCCINATE 100 MG/2 ML VIAL IV SCH ×3 (05:31→21:45)
[2020-05-14] MEDS: METOCLOPRAMIDE HCL 10MG/2ML VIAL IV SCH ×4 (05:31→23:41)
[2020-05-14] MEDS: SUCRALFATE 1 G/10 ML UDC NG SCH ×4 (05:31→23:42)
[2020-05-14] MEDS: BLOOD SUGAR DIAGNOSTIC STRIP TEST SCH ×4 (06:48→21:53)
[2020-05-14] MEDS: INSULIN LISPRO 100 UNITS/ML SUBCUT SCH ×4 (06:48→21:54)
[2020-05-14] MEDS ORDERED: FENTANYL CITRATE 2,500 MCG in SODIUM CHLORIDE 0.9% 200 ML IV PRN (09:00)
[2020-05-14] MEDS: MIDODRINE HCL 5MG TABLET PO SCH ×3 (09:49→17:00)
[2020-05-14] MEDS: POLYETHYLENE GLYCOL 3350 (17GM) 1 DOSE PACK PO SCH (09:49)
[2020-05-14] MEDS: AMIODARONE HCL 200 MG TABLET PO SCH (09:50)
[2020-05-14] MEDS: DESMOPRESSIN ACETATE 0.1MG TABLET PO SCH (09:51)
[2020-05-14] MEDS: THIORIDAZINE HCL 25MG TABLET PO SCH (09:51)
[2020-05-14] MEDS: LAMOTRIGINE 100MG TABLET PO SCH (09:51)
[2020-05-14] MEDS: ASCORBIC ACID 500 MG TABLET PO SCH ×2 (09:52→21:46)
[2020-05-14] MEDS: TRIAMCINOLONE ACETONIDE 0.1 % OINT 15GM TOP SCH (09:52)
[2020-05-14] MEDS: DOCUSATE SODIUM SUGAR FREE 100MG/10ML UDC NG SCH (09:52)
[2020-05-14 13:17] LABS: BG BASE EXCESS 9.1 mmol/L (-2.0-2.0); BG CARBOXYHEMOGLOBIN 0.3 % (0.5-1.5); BG FRACTION INSPIRED OXYGEN 40; BG HCO3 ACT 32.8 mmol/L (22.0-26.0); BG METHEMOGLOBIN 0.6 % (0.0-1.5); BG OXYHEMOGLOBIN 97.1 % (94.0-97.0); BG PCO2 41.4 mmHg (35.0-45.0); BG PH 7.517 (7.350-7.450); BG PO2 119.6 mmHg (75.0-100.0); BG SAMPLE SITE RIGHT RADIAL; BG TOTAL HEMOGLOBIN 8.8 g/dL (12.0-18.0); BG VENT MODE VENT - AC
[2020-05-14] MEDS: ACETAMINOPHEN 325MG TABLET PO PRN (13:33)
[2020-05-14] MEDS ORDERED: MORPHINE SULFATE 4 MG/ML CPJ (NOT FOR IM USE) IV PRN (14:00)
[2020-05-14 14:49] LABS: PLATELET ESTIMATE DECREASED
[2020-05-14] MEDS ORDERED: AMIODARONE HCL 900 MG in DEXT 5% WATER 482 ML IV PRN (15:15)
[2020-05-14] MEDS ORDERED: MAGNESIUM 1 G PREMIX 100 ML IV ONE (16:00)
[2020-05-14] MEDS: AMIODARONE HCL 900 MG in DEXT 5% WATER 482 ML IV PRN ×2 (16:00→22:20)
[2020-05-14] MEDS: VASOPRESSIN 20 UNIT in SODIUM CHLORIDE 0.9% 99 ML IV PRN (16:30)
[2020-05-14] MEDS ORDERED: POTASSIUM CHLORIDE INJ 40 MEQ in DEXT 5% WATER 250 ML IV ONE (17:00)
[2020-05-15] VITALS (96 sets, daily range): BP systolic 83–134; BP diastolic 39–78
[2020-05-15] MEDS: VASOPRESSIN 20 UNIT in SODIUM CHLORIDE 0.9% 99 ML IV PRN ×3 (00:09→18:14)
[2020-05-15] MEDS: ACETAMINOPHEN 325MG TABLET PO PRN (00:58)
[2020-05-15] MEDS: TRIAMCINOLONE ACETONIDE 0.1 % OINT 15GM TOP SCH ×3 (01:01→21:29)
[2020-05-15] MEDS: PHENYLEPHRINE 100 MG in DEXT 5% WATER 240 ML IV PRN ×2 (01:10→13:47)
[2020-05-15] MEDS: IPRATROPIUM/ALBUTEROL 0.5-3(2.5)MG/3ML NEB HHN SCH ×5 (02:44→20:49)
[2020-05-15] MEDS: MIDAZOLAM HCL 100 MG in DEXT 5% WATER 80 ML IV PRN (04:48)
[2020-05-15] MEDS: HYDROCORTISONE SOD SUCCINATE 100 MG/2 ML VIAL IV SCH ×3 (05:58→21:28)
[2020-05-15] MEDS: SUCRALFATE 1 G/10 ML UDC NG SCH ×3 (05:59→16:42)
[2020-05-15] MEDS: METOCLOPRAMIDE HCL 10MG/2ML VIAL IV SCH ×3 (05:59→16:42)
[2020-05-15 06:26] LABS: BASOPHILS % 0.1 % (0.0-2.0); LYMPHOCYTES % 9.5 % (20.0-50.0); MEAN CORPUSCULAR VOLUME 90.3 fL (80.0-94.0); MEAN PLATELET VOLUME 8.9 fl (7.4-10.4); MONOCYTES % 3.1 % (2.0-8.0); NEUTROPHILS % 87.3 % (40.0-76.0); RED BLOOD CELL COUNT 2.26 mill/uL (4.7-6.1); RED CELL DISTRIBUTION WIDTH 15.8 % (11.6-14.6)
[2020-05-15 06:46] LABS: CHLORIDE 102 mEq/L (98-107)
[2020-05-15 07:51] LABS: HEMATOCRIT. 20.4 % (42.0-52.0); PLATELET 43 x1000/uL (130-400)
[2020-05-15] MEDS: INSULIN LISPRO 100 UNITS/ML SUBCUT SCH ×4 (08:00→21:00)
[2020-05-15] MEDS: THIORIDAZINE HCL 25MG TABLET PO SCH (08:26)
[2020-05-15] MEDS: MIDODRINE HCL 5MG TABLET PO SCH ×3 (08:26→16:42)
[2020-05-15] MEDS: DESMOPRESSIN ACETATE 0.1MG TABLET PO SCH (08:26)
[2020-05-15] MEDS: POLYETHYLENE GLYCOL 3350 (17GM) 1 DOSE PACK PO SCH (08:26)
[2020-05-15] MEDS: DOCUSATE SODIUM SUGAR FREE 100MG/10ML UDC NG SCH (08:26)
[2020-05-15] MEDS: LAMOTRIGINE 100MG TABLET PO SCH (08:26)
[2020-05-15] MEDS: ASCORBIC ACID 500 MG TABLET PO SCH ×2 (08:27→21:28)
[2020-05-15] MEDS: BLOOD SUGAR DIAGNOSTIC STRIP TEST SCH ×4 (08:27→21:29)
[2020-05-15 09:48] LABS: PHOSPHORUS 1.9 mg/dL (2.5-4.9)
[2020-05-15] MEDS ORDERED: POTASSIUM CHLORIDE INJ 60 MEQ in SODIUM CHLORIDE 0.9% 500 ML IV SCH (11:00)
[2020-05-15 21:06] LABS: HEMATOCRIT 28.8 % (42.0-52.0); HEMOGLOBIN 9.8 g/dL (14.0-18.0)
[2020-05-16] VITALS (89 sets, daily range): BP systolic 99–148; BP diastolic 52–85
[2020-05-16] MEDS: METOCLOPRAMIDE HCL 10MG/2ML VIAL IV SCH ×4 (00:23→18:20)
[2020-05-16] MEDS: SUCRALFATE 1 G/10 ML UDC NG SCH ×4 (00:24→18:21)
[2020-05-16] MEDS: PHENYLEPHRINE 100 MG in DEXT 5% WATER 240 ML IV PRN ×3 (00:39→22:14)
[2020-05-16] MEDS: VASOPRESSIN 20 UNIT in SODIUM CHLORIDE 0.9% 99 ML IV PRN ×3 (02:57→22:15)
[2020-05-16] MEDS: IPRATROPIUM/ALBUTEROL 0.5-3(2.5)MG/3ML NEB HHN SCH ×5 (03:20→20:44)
[2020-05-16 05:55] LABS: HEMATOCRIT. 29.5 % (42.0-52.0); MEAN CORPUSCULAR HEMOGLOBIN 30.6 pg (28.0-32.0); MEAN CORPUSCULAR VOLUME 90.3 fL (80.0-94.0); MEAN PLATELET VOLUME 10.3 fl (7.4-10.4); PLATELET 51 x1000/uL (130-400); RED BLOOD CELL COUNT 3.27 mill/uL (4.7-6.1); RED CELL DISTRIBUTION WIDTH 15.6 % (11.6-14.6)
[2020-05-16 06:32] LABS: CHLORIDE 105 mEq/L (98-107)
[2020-05-16 06:38] LABS: PHOSPHORUS 2.1 mg/dL (2.5-4.9)
[2020-05-16] MEDS: HYDROCORTISONE SOD SUCCINATE 100 MG/2 ML VIAL IV SCH ×3 (06:58→22:12)
[2020-05-16] MEDS: BLOOD SUGAR DIAGNOSTIC STRIP TEST SCH ×4 (06:58→21:00)
[2020-05-16] MEDS: INSULIN LISPRO 100 UNITS/ML SUBCUT SCH ×4 (08:00→21:00)
[2020-05-16] MEDS: ASCORBIC ACID 500 MG TABLET PO SCH ×2 (08:21→22:12)
[2020-05-16] MEDS: MIDODRINE HCL 5MG TABLET PO SCH ×3 (08:21→18:21)
[2020-05-16] MEDS: AMIODARONE HCL 200 MG TABLET PO SCH ×2 (08:21→22:12)
[2020-05-16] MEDS: THIORIDAZINE HCL 25MG TABLET PO SCH (08:22)
[2020-05-16] MEDS: LAMOTRIGINE 100MG TABLET PO SCH (08:52)
[2020-05-16] MEDS: POLYETHYLENE GLYCOL 3350 (17GM) 1 DOSE PACK PO SCH (08:52)
[2020-05-16] MEDS: DOCUSATE SODIUM SUGAR FREE 100MG/10ML UDC NG SCH (08:52)
[2020-05-16] MEDS: TRIAMCINOLONE ACETONIDE 0.1 % OINT 15GM TOP SCH ×2 (08:53→22:16)
[2020-05-16 09:31] LABS: BG BASE EXCESS 4.3 mmol/L (-2.0-2.0); BG CARBOXYHEMOGLOBIN 0.2 % (0.5-1.5); BG DEOXYHEMOGLOBIN 3.6 % (0.0-5.0); BG FRACTION INSPIRED OXYGEN 35; BG HCO3 ACT 29.3 mmol/L (22.0-26.0); BG METHEMOGLOBIN 0.2 % (0.0-1.5); BG OXYGEN SATURATION 96.4 % (92.0-98.5); BG PCO2 45.4 mmHg (35.0-45.0); BG PH 7.427 (7.350-7.450); BG PO2 88.7 mmHg (75.0-100.0); BG SAMPLE SITE RIGHT RADIAL; BG TOTAL HEMOGLOBIN 10.5 g/dL (12.0-18.0); BG TOTAL RESPIRATORY RATE 20 b/min; BG VENT MODE VENT - AC
[2020-05-16] MEDS ORDERED: POTASSIUM PHOS,M-BASIC-D-BASIC 20 MMOL in DEXT 5% WATER 243.3333 ML IV ONE (11:30)
[2020-05-16] MEDS ORDERED: LIDOCAINE HCL 1% 20ML VIAL (Pyxis) INJ ONE (13:14)
[2020-05-16] MEDS: MIDAZOLAM HCL 100 MG in DEXT 5% WATER 80 ML IV PRN (14:23)
[2020-05-16] MEDS: FENTANYL CITRATE/PF 2,500 MCG in SODIUM CHLORIDE 0.9% 200 ML IV PRN (14:24)
[2020-05-16 14:26] LABS: PLATELET ESTIMATE MARKEDLY DECREASED
[2020-05-17] VITALS (87 sets, daily range): BP systolic 74–149; BP diastolic 30–85
[2020-05-17] MEDS: SUCRALFATE 1 G/10 ML UDC NG SCH ×4 (00:18→17:58)
[2020-05-17] MEDS: METOCLOPRAMIDE HCL 10MG/2ML VIAL IV SCH ×4 (00:18→17:58)
[2020-05-17] MEDS: IPRATROPIUM/ALBUTEROL 0.5-3(2.5)MG/3ML NEB HHN SCH ×4 (02:07→16:29)
[2020-05-17 05:13] LABS: CHLORIDE 104 mEq/L (98-107)
[2020-05-17 05:19] LABS: PHOSPHORUS 2.9 mg/dL (2.5-4.9)
[2020-05-17 06:15] LABS: HEMATOCRIT. 27.8 % (42.0-52.0); HEMOGLOBIN. 9.5 g/dL (14.0-18.0); MEAN CORPUSCULAR HEMOGLOBIN 30.9 pg (28.0-32.0); MEAN CORPUSCULAR VOLUME 90.3 fL (80.0-94.0); MEAN PLATELET VOLUME 10.7 fl (7.4-10.4); PLATELET 57 x1000/uL (130-400); RED BLOOD CELL COUNT 3.08 mill/uL (4.7-6.1); RED CELL DISTRIBUTION WIDTH 15.4 % (11.6-14.6)
[2020-05-17] MEDS: HYDROCORTISONE SOD SUCCINATE 100 MG/2 ML VIAL IV SCH ×3 (06:18→21:50)
[2020-05-17] MEDS: MIDAZOLAM HCL 100 MG in DEXT 5% WATER 80 ML IV PRN (06:36)
[2020-05-17] MEDS ORDERED: MIDAZOLAM 100MG/100ML PMX 100 ML IV PRN (08:00)
[2020-05-17] MEDS: INSULIN LISPRO 100 UNITS/ML SUBCUT SCH ×4 (08:00→21:00)
[2020-05-17] MEDS: ASCORBIC ACID 500 MG TABLET PO SCH ×2 (08:27→21:50)
[2020-05-17] MEDS: VASOPRESSIN 20 UNIT in SODIUM CHLORIDE 0.9% 99 ML IV PRN (08:27)
[2020-05-17] MEDS: MIDODRINE HCL 5MG TABLET PO SCH ×3 (08:28→17:58)
[2020-05-17] MEDS: BLOOD SUGAR DIAGNOSTIC STRIP TEST SCH ×4 (08:29→21:49)
[2020-05-17] MEDS: THIORIDAZINE HCL 25MG TABLET PO SCH (08:33)
[2020-05-17] MEDS: LAMOTRIGINE 100MG TABLET PO SCH (08:34)
[2020-05-17] MEDS: AMIODARONE HCL 200 MG TABLET PO SCH (09:00)
[2020-05-17] MEDS: TRIAMCINOLONE ACETONIDE 0.1 % OINT 15GM TOP SCH ×2 (09:12→21:52)
[2020-05-17] MEDS: MIDAZOLAM HCL 100 MG in SODIUM CHLORIDE 0.9% 100 ML IV PRN (10:25)
[2020-05-17] MEDS: PHENYLEPHRINE 100 MG in DEXT 5% WATER 240 ML IV PRN (10:27)
[2020-05-17] MEDS ORDERED: POTASSIUM CHLORIDE 20MEQ/PACKET PO NR (13:00)
[2020-05-17] MEDS: FENTANYL CITRATE/PF 2,500 MCG in SODIUM CHLORIDE 0.9% 200 ML IV PRN (13:59)
[2020-05-17 17:53] LABS: PLATELET ESTIMATE DECREASED
[2020-05-18] VITALS (89 sets, daily range): BP systolic 80–161; BP diastolic 29–99
[2020-05-18] MEDS: SUCRALFATE 1 G/10 ML UDC NG SCH ×4 (00:02→18:07)
[2020-05-18] MEDS: METOCLOPRAMIDE HCL 10MG/2ML VIAL IV SCH ×4 (00:02→18:08)
[2020-05-18] MEDS: PHENYLEPHRINE 100 MG in DEXT 5% WATER 240 ML IV PRN ×2 (00:46→13:42)
[2020-05-18] MEDS: IPRATROPIUM/ALBUTEROL 0.5-3(2.5)MG/3ML NEB HHN SCH ×6 (01:20→21:41)
[2020-05-18] MEDS: HYDROCORTISONE SOD SUCCINATE 100 MG/2 ML VIAL IV SCH ×3 (05:57→21:38)
[2020-05-18] MEDS: MIDAZOLAM HCL 100 MG in SODIUM CHLORIDE 0.9% 100 ML IV PRN (06:06)
[2020-05-18 06:57] LABS: HEMATOCRIT. 34.3 % (42.0-52.0); HEMOGLOBIN. 11.6 g/dL (14.0-18.0); MEAN CORPUSCULAR HEMOGLOBIN 30.5 pg (28.0-32.0); MEAN CORPUSCULAR VOLUME 90.4 fL (80.0-94.0); MEAN PLATELET VOLUME 9.8 fl (7.4-10.4); PLATELET 102 x1000/uL (130-400); RED CELL DISTRIBUTION WIDTH 15.9 % (11.6-14.6)
[2020-05-18] MEDS: BLOOD SUGAR DIAGNOSTIC STRIP TEST SCH ×4 (07:30→21:09)
[2020-05-18] MEDS: INSULIN LISPRO 100 UNITS/ML SUBCUT SCH ×4 (08:00→21:00)
[2020-05-18 08:14] LABS: CHLORIDE 123 mEq/L (98-107)
[2020-05-18] MEDS: LAMOTRIGINE 100MG TABLET PO SCH (09:24)
[2020-05-18] MEDS: MIDODRINE HCL 5MG TABLET PO SCH ×3 (09:24→18:07)
[2020-05-18] MEDS: ASCORBIC ACID 500 MG TABLET PO SCH ×2 (09:24→21:38)
[2020-05-18] MEDS: THIORIDAZINE HCL 25MG TABLET PO SCH (09:24)
[2020-05-18] MEDS: TRIAMCINOLONE ACETONIDE 0.1 % OINT 15GM TOP SCH ×2 (09:25→21:38)
[2020-05-18] MEDS: DEXTROSE 5% WATER 1,000 ML IV SCH ×2 (09:35→21:42)
[2020-05-18] MEDS ORDERED: POTASSIUM CHLORIDE 20MEQ/PACKET PO SCH (10:00)
[2020-05-18] MEDS: DESMOPRESSIN ACETATE 0.1MG TABLET PO SCH ×2 (10:34→21:38)
[2020-05-18] MEDS: VASOPRESSIN 20 UNIT in SODIUM CHLORIDE 0.9% 99 ML IV PRN ×2 (11:41→23:33)
[2020-05-18 20:08] LABS: PLATELET ESTIMATE DECREASED
[2020-05-19] VITALS (92 sets, daily range): BP systolic 70–145; BP diastolic 41–105
[2020-05-19] MEDS: SUCRALFATE 1 G/10 ML UDC NG SCH ×5 (00:08→23:34)
[2020-05-19] MEDS: METOCLOPRAMIDE HCL 10MG/2ML VIAL IV SCH ×5 (00:08→23:34)
[2020-05-19] MEDS: PHENYLEPHRINE 100 MG in DEXT 5% WATER 240 ML IV PRN ×3 (00:09→20:09)
[2020-05-19] MEDS: IPRATROPIUM/ALBUTEROL 0.5-3(2.5)MG/3ML NEB HHN SCH ×6 (01:22→19:57)
[2020-05-19] MEDS: MIDAZOLAM HCL 100 MG in SODIUM CHLORIDE 0.9% 100 ML IV PRN (05:31)
[2020-05-19] MEDS: HYDROCORTISONE SOD SUCCINATE 100 MG/2 ML VIAL IV SCH ×3 (06:12→21:41)
[2020-05-19] MEDS: BLOOD SUGAR DIAGNOSTIC STRIP TEST SCH ×3 (06:12→17:30)
[2020-05-19 07:17] LABS: CHLORIDE 115 mEq/L (98-107)
[2020-05-19 07:26] LABS: PHOSPHORUS 2.9 mg/dL (2.5-4.9)
[2020-05-19 07:30] LABS: HEMATOCRIT. 27.6 % (42.0-52.0); HEMOGLOBIN. 9.2 g/dL (14.0-18.0); MEAN CORPUSCULAR HEMOGLOBIN 30.2 pg (28.0-32.0); MEAN CORPUSCULAR VOLUME 91.1 fL (80.0-94.0); MEAN PLATELET VOLUME 9.7 fl (7.4-10.4); PLATELET 111 x1000/uL (130-400); RED BLOOD CELL COUNT 3.03 mill/uL (4.7-6.1); RED CELL DISTRIBUTION WIDTH 15.6 % (11.6-14.6)
[2020-05-19] MEDS: INSULIN LISPRO 100 UNITS/ML SUBCUT SCH ×3 (08:00→18:00)
[2020-05-19 09:52] LABS: BG BASE EXCESS 4.2 mmol/L (-2.0-2.0); BG CARBOXYHEMOGLOBIN 0.9 % (0.5-1.5); BG DEOXYHEMOGLOBIN 3.9 % (0.0-5.0); BG FRACTION INSPIRED OXYGEN 35; BG HCO3 ACT 28.3 mmol/L (22.0-26.0); BG METHEMOGLOBIN 0.1 % (0.0-1.5); BG OXYGEN SATURATION 96.1 % (92.0-98.5); BG OXYHEMOGLOBIN 95.1 % (94.0-97.0); BG PCO2 40.1 mmHg (35.0-45.0); BG PH 7.466 (7.350-7.450); BG PO2 78.4 mmHg (75.0-100.0); BG SAMPLE SITE RIGHT RADIAL; BG TOTAL HEMOGLOBIN 9.5 g/dL (12.0-18.0); BG VENT MODE VENT - AC
[2020-05-19] MEDS: VASOPRESSIN 20 UNIT in SODIUM CHLORIDE 0.9% 99 ML IV PRN (10:16)
[2020-05-19] MEDS: ASCORBIC ACID 500 MG TABLET PO SCH ×2 (10:19→21:41)
[2020-05-19] MEDS: THIORIDAZINE HCL 25MG TABLET PO SCH (10:19)
[2020-05-19] MEDS: TRIAMCINOLONE ACETONIDE 0.1 % OINT 15GM TOP SCH (10:19)
[2020-05-19] MEDS: MIDODRINE HCL 5MG TABLET PO SCH ×3 (10:19→18:41)
[2020-05-19] MEDS: LAMOTRIGINE 100MG TABLET PO SCH (10:20)
[2020-05-19] MEDS: DESMOPRESSIN ACETATE 0.1MG TABLET PO SCH ×2 (12:56→21:42)
[2020-05-19] MEDS: DEXTROSE 5% WATER 1,000 ML IV SCH ×2 (12:56→23:15)
[2020-05-19 14:07] LABS: BG BASE EXCESS 4.6 mmol/L (-2.0-2.0); BG CARBOXYHEMOGLOBIN 0.3 % (0.5-1.5); BG DEOXYHEMOGLOBIN 11.1 % (0.0-5.0); BG FRACTION INSPIRED OXYGEN 40; BG HCO3 ACT 29.5 mmol/L (22.0-26.0); BG OXYGEN SATURATION 88.9 % (92.0-98.5); BG OXYHEMOGLOBIN 88.6 % (94.0-97.0); BG PCO2 45.3 mmHg (35.0-45.0); BG PH 7.431 (7.350-7.450); BG PO2 55.1 mmHg (75.0-100.0); BG SAMPLE SITE RIGHT RADIAL; BG TOTAL HEMOGLOBIN 9.2 g/dL (12.0-18.0); BG VENT MODE VENT - CPAP
[2020-05-19] MEDS: FENTANYL CITRATE/PF 2,500 MCG in SODIUM CHLORIDE 0.9% 200 ML IV PRN (20:01)
[2020-05-19 21:40] LABS: PLATELET ESTIMATE DECREASED
[2020-05-20] VITALS (60 sets, daily range): BP systolic 84–140; BP diastolic 38–89
[2020-05-20] MEDS: IPRATROPIUM/ALBUTEROL 0.5-3(2.5)MG/3ML NEB HHN SCH ×5 (00:02→21:07)
[2020-05-20] MEDS: BLOOD SUGAR DIAGNOSTIC STRIP TEST SCH ×4 (00:25→18:01)
[2020-05-20] MEDS: TRIAMCINOLONE ACETONIDE 0.1 % OINT 15GM TOP SCH ×3 (00:28→21:58)
[2020-05-20] MEDS: INSULIN LISPRO 100 UNITS/ML SUBCUT SCH ×4 (06:00→18:00)
[2020-05-20] MEDS: METOCLOPRAMIDE HCL 10MG/2ML VIAL IV SCH ×3 (07:00→18:01)
[2020-05-20 07:04] LABS: HEMATOCRIT. 25.7 % (42.0-52.0); HEMOGLOBIN. 8.5 g/dL (14.0-18.0); MEAN CORPUSCULAR HEMOGLOBIN 30.5 pg (28.0-32.0); MEAN CORPUSCULAR VOLUME 92.4 fL (80.0-94.0); MEAN PLATELET VOLUME 9.4 fl (7.4-10.4); PLATELET 109 x1000/uL (130-400); RED BLOOD CELL COUNT 2.78 mill/uL (4.7-6.1); RED CELL DISTRIBUTION WIDTH 16.4 % (11.6-14.6)
[2020-05-20 07:19] LABS: CHLORIDE 107 mEq/L (98-107)
[2020-05-20] MEDS: SUCRALFATE 1 G/10 ML UDC NG SCH ×3 (07:30→18:01)
[2020-05-20] MEDS: HYDROCORTISONE SOD SUCCINATE 100 MG/2 ML VIAL IV SCH ×3 (07:31→21:58)
[2020-05-20] MEDS: PHENYLEPHRINE 100 MG in DEXT 5% WATER 240 ML IV PRN ×2 (07:41→18:02)
[2020-05-20] MEDS: ASCORBIC ACID 500 MG TABLET PO SCH ×2 (09:28→21:58)
[2020-05-20] MEDS: MIDODRINE HCL 5MG TABLET PO SCH ×3 (09:28→18:01)
[2020-05-20] MEDS: DESMOPRESSIN ACETATE 0.1MG TABLET PO SCH ×2 (09:28→22:05)
[2020-05-20] MEDS: LAMOTRIGINE 100MG TABLET PO SCH (09:28)
[2020-05-20] MEDS: THIORIDAZINE HCL 25MG TABLET PO SCH (09:28)
[2020-05-20] MEDS: MIDAZOLAM HCL 100 MG in SODIUM CHLORIDE 0.9% 100 ML IV PRN (11:21)
[2020-05-20 11:34] LABS: BG CARBOXYHEMOGLOBIN 0.2 % (0.5-1.5); BG DEOXYHEMOGLOBIN 5.9 % (0.0-5.0); BG FRACTION INSPIRED OXYGEN 50; BG HCO3 ACT 29.9 mmol/L (22.0-26.0); BG METHEMOGLOBIN 0.1 % (0.0-1.5); BG OXYGEN SATURATION 94.1 % (92.0-98.5); BG OXYHEMOGLOBIN 93.8 % (94.0-97.0); BG PCO2 51.4 mmHg (35.0-45.0); BG PH 7.382 (7.350-7.450); BG PO2 74.1 mmHg (75.0-100.0); BG SAMPLE SITE RIGHT RADIAL; BG TOTAL HEMOGLOBIN 9.9 g/dL (12.0-18.0); BG TOTAL RESPIRATORY RATE 20 b/min; BG VENT MODE VENT - AC
[2020-05-20] MEDS: DEXTROSE 5% WATER 1,000 ML IV SCH (12:19)
[2020-05-20 18:03] LABS: PLATELET ESTIMATE DECREASED
[2020-05-20] MEDS: FENTANYL CITRATE/PF 2,500 MCG in SODIUM CHLORIDE 0.9% 200 ML IV PRN (18:24)
[2020-05-21] VITALS (47 sets, daily range): BP systolic 66–118; BP diastolic 32–62
[2020-05-21] MEDS: METOCLOPRAMIDE HCL 10MG/2ML VIAL IV SCH ×4 (00:24→18:35)
[2020-05-21] MEDS: SUCRALFATE 1 G/10 ML UDC NG SCH ×4 (00:24→18:35)
[2020-05-21] MEDS: BLOOD SUGAR DIAGNOSTIC STRIP TEST SCH ×4 (00:25→18:35)
[2020-05-21] MEDS: IPRATROPIUM/ALBUTEROL 0.5-3(2.5)MG/3ML NEB HHN SCH ×4 (02:45→20:04)
[2020-05-21] MEDS: PHENYLEPHRINE 100 MG in DEXT 5% WATER 240 ML IV PRN ×2 (05:35→16:05)
[2020-05-21] MEDS: INSULIN LISPRO 100 UNITS/ML SUBCUT SCH ×3 (06:00→12:00)
[2020-05-21] MEDS: HYDROCORTISONE SOD SUCCINATE 100 MG/2 ML VIAL IV SCH ×3 (06:08→21:47)
[2020-05-21 06:21] LABS: CHLORIDE 110 mEq/L (98-107)
[2020-05-21] MEDS: NOREPINEPHRINE 32 MG in DEXT 5% WATER 218 ML IV PRN (07:00)
[2020-05-21 08:56] LABS: HEMATOCRIT. 26.7 % (42.0-52.0); HEMOGLOBIN. 8.8 g/dL (14.0-18.0); MEAN CORPUSCULAR HEMOGLOBIN 30.6 pg (28.0-32.0); MEAN CORPUSCULAR VOLUME 92.6 fL (80.0-94.0); MEAN PLATELET VOLUME 9.1 fl (7.4-10.4); PLATELET 101 x1000/uL (130-400); RED BLOOD CELL COUNT 2.88 mill/uL (4.7-6.1)
[2020-05-21] MEDS: DESMOPRESSIN ACETATE 0.1MG TABLET PO SCH ×2 (09:41→21:51)
[2020-05-21] MEDS: ASCORBIC ACID 500 MG TABLET PO SCH ×2 (09:41→21:48)
[2020-05-21] MEDS: LAMOTRIGINE 100MG TABLET PO SCH (09:41)
[2020-05-21] MEDS: THIORIDAZINE HCL 25MG TABLET PO SCH (09:42)
[2020-05-21] MEDS: MIDODRINE HCL 5MG TABLET PO SCH ×3 (09:43→18:35)
[2020-05-21 10:13] LABS: BG BASE EXCESS 6.1 mmol/L (-2.0-2.0); BG CARBOXYHEMOGLOBIN 0.3 % (0.5-1.5); BG DEOXYHEMOGLOBIN 11.5 % (0.0-5.0); BG FRACTION INSPIRED OXYGEN 70; BG HCO3 ACT 32.6 mmol/L (22.0-26.0); BG METHEMOGLOBIN 0.3 % (0.0-1.5); BG OXYGEN SATURATION 88.4 % (92.0-98.5); BG OXYHEMOGLOBIN 87.9 % (94.0-97.0); BG PH 7.367 (7.350-7.450); BG PO2 56.9 mmHg (75.0-100.0); BG SAMPLE SITE RIGHT RADIAL; BG TOTAL HEMOGLOBIN 9.8 g/dL (12.0-18.0); BG VENT MODE VENT - AC
[2020-05-21] MEDS: TRIAMCINOLONE ACETONIDE 0.1 % OINT 15GM TOP SCH (13:57)
[2020-05-21 14:27] LABS: PLATELET ESTIMATE SLIGHTLY DECREASED
[2020-05-21] MEDS: MIDAZOLAM HCL 100 MG in SODIUM CHLORIDE 0.9% 100 ML IV PRN (14:28)
[2020-05-21] MEDS ORDERED: POTASSIUM CHLORIDE 20MEQ/PACKET PO SCH (14:30)
[2020-05-21 16:57] LABS: BASOPHILS % 0.2 % (0.0-2.0); EOSINOPHILS % 0.5 % (0.0-5.0); HEMATOCRIT. 24.4 % (42.0-52.0); HEMOGLOBIN. 7.8 g/dL (14.0-18.0); LYMPHOCYTES % 7.2 % (20.0-50.0); MEAN CORPUSCULAR HEMOGLOBIN 30.1 pg (28.0-32.0); MEAN CORPUSCULAR VOLUME 94.1 fL (80.0-94.0); MEAN PLATELET VOLUME 9.5 fl (7.4-10.4); MONOCYTES % 5.3 % (2.0-8.0); NEUTROPHILS % 86.8 % (40.0-76.0); PLATELET 93 x1000/uL (130-400); RED CELL DISTRIBUTION WIDTH 16.3 % (11.6-14.6)
[2020-05-21] MEDS: ALBUMIN HUMAN 12.5GM/50ML (25%) IV NR ×2 (18:41→19:29)
[2020-05-21] MEDS: FENTANYL CITRATE/PF 2,500 MCG in SODIUM CHLORIDE 0.9% 200 ML IV PRN (19:32)
[2020-05-22] VITALS (79 sets, daily range): BP systolic 73–134; BP diastolic 39–100
[2020-05-22] MEDS: TRIAMCINOLONE ACETONIDE 0.1 % OINT 15GM TOP SCH ×3 (00:20→21:00)
[2020-05-22] MEDS: BLOOD SUGAR DIAGNOSTIC STRIP TEST SCH ×4 (00:23→17:15)
[2020-05-22] MEDS: METOCLOPRAMIDE HCL 10MG/2ML VIAL IV SCH ×4 (00:28→17:31)
[2020-05-22] MEDS: SUCRALFATE 1 G/10 ML UDC NG SCH ×4 (00:28→17:31)
[2020-05-22] MEDS: IPRATROPIUM/ALBUTEROL 0.5-3(2.5)MG/3ML NEB HHN SCH ×5 (02:07→20:38)
[2020-05-22] MEDS: PHENYLEPHRINE 100 MG in DEXT 5% WATER 240 ML IV PRN ×2 (02:39→14:17)
[2020-05-22 04:51] LABS: CHLORIDE 109 mEq/L (98-107)
[2020-05-22 04:52] LABS: HEMATOCRIT. 24.3 % (42.0-52.0); HEMOGLOBIN. 7.9 g/dL (14.0-18.0); MEAN CORPUSCULAR HEMOGLOBIN 30.3 pg (28.0-32.0); MEAN CORPUSCULAR VOLUME 93.2 fL (80.0-94.0); PLATELET 101 x1000/uL (130-400); RED CELL DISTRIBUTION WIDTH 15.9 % (11.6-14.6)
[2020-05-22] MEDS: INSULIN LISPRO 100 UNITS/ML SUBCUT SCH ×5 (06:00→17:33)
[2020-05-22] MEDS: HYDROCORTISONE SOD SUCCINATE 100 MG/2 ML VIAL IV SCH ×2 (06:18→12:44)
[2020-05-22] MEDS: THIORIDAZINE HCL 25MG TABLET PO SCH (08:06)
[2020-05-22] MEDS: DESMOPRESSIN ACETATE 0.1MG TABLET PO SCH (08:06)
[2020-05-22] MEDS: MIDODRINE HCL 5MG TABLET PO SCH ×3 (08:07→17:31)
[2020-05-22] MEDS: ASCORBIC ACID 500 MG TABLET PO SCH (08:07)
[2020-05-22] MEDS: LAMOTRIGINE 100MG TABLET PO SCH (08:12)
[2020-05-22 08:55] LABS: BG BASE EXCESS 4.8 mmol/L (-2.0-2.0); BG CARBOXYHEMOGLOBIN 0.4 % (0.5-1.5); BG DEOXYHEMOGLOBIN 1.5 % (0.0-5.0); BG FRACTION INSPIRED OXYGEN 80; BG HCO3 ACT 32.8 mmol/L (22.0-26.0); BG METHEMOGLOBIN 0.3 % (0.0-1.5); BG OXYGEN SATURATION 98.5 % (92.0-98.5); BG OXYHEMOGLOBIN 97.8 % (94.0-97.0); BG PH 7.308 (7.350-7.450); BG PO2 127.3 mmHg (75.0-100.0); BG SAMPLE SITE RIGHT RADIAL; BG TOTAL HEMOGLOBIN 11.9 g/dL (12.0-18.0); BG VENT MODE VENT - AC
[2020-05-22] MEDS ORDERED: MIDAZOLAM 100MG/100ML PMX 100 ML IV PRN (10:00)
[2020-05-22] MEDS: MIDAZOLAM HCL 100 MG in SODIUM CHLORIDE 0.9% 100 ML IV PRN (12:40)
[2020-05-22 12:43] LABS: PLATELET ESTIMATE DECREASED
[2020-05-22] MEDS: FENTANYL CITRATE/PF 2,500 MCG in SODIUM CHLORIDE 0.9% 200 ML IV PRN (14:00)
[2020-05-22] MEDS: ACETYLCYSTEINE 100MG/ML 10% VIAL 4ML INH SCH (20:39)
[2020-05-23] VITALS (89 sets, daily range): BP systolic 78–129; BP diastolic 44–81
[2020-05-23] MEDS: BLOOD SUGAR DIAGNOSTIC STRIP TEST SCH ×4 (00:13→17:41)
[2020-05-23] MEDS: SUCRALFATE 1 G/10 ML UDC NG SCH ×4 (00:27→17:41)
[2020-05-23] MEDS: HYDROCORTISONE SOD SUCCINATE 100 MG/2 ML VIAL IV SCH ×3 (00:29→21:07)
[2020-05-23] MEDS: METOCLOPRAMIDE HCL 10MG/2ML VIAL IV SCH ×4 (00:29→17:41)
[2020-05-23] MEDS: ASCORBIC ACID 500 MG TABLET PO SCH ×3 (00:31→21:07)
[2020-05-23] MEDS: DESMOPRESSIN ACETATE 0.1MG TABLET PO SCH ×3 (00:34→21:07)
[2020-05-23] MEDS: PHENYLEPHRINE 100 MG in DEXT 5% WATER 240 ML IV PRN ×2 (00:49→12:59)
[2020-05-23] MEDS: IPRATROPIUM/ALBUTEROL 0.5-3(2.5)MG/3ML NEB HHN SCH ×5 (02:46→20:53)
[2020-05-23 05:16] LABS: CHLORIDE 107 mEq/L (98-107)
[2020-05-23] MEDS: INSULIN LISPRO 100 UNITS/ML SUBCUT SCH ×4 (06:00→17:41)
[2020-05-23 06:23] LABS: HEMATOCRIT. 24.9 % (42.0-52.0); HEMOGLOBIN. 8.1 g/dL (14.0-18.0); MEAN CORPUSCULAR HEMOGLOBIN 30.4 pg (28.0-32.0); MEAN PLATELET VOLUME 9.8 fl (7.4-10.4); PLATELET 97 x1000/uL (130-400); RED BLOOD CELL COUNT 2.68 mill/uL (4.7-6.1); RED CELL DISTRIBUTION WIDTH 15.9 % (11.6-14.6)
[2020-05-23] MEDS: ACETYLCYSTEINE 100MG/ML 10% VIAL 4ML INH SCH ×2 (07:49→15:11)
[2020-05-23] MEDS: THIORIDAZINE HCL 25MG TABLET PO SCH (08:03)
[2020-05-23] MEDS: MIDODRINE HCL 5MG TABLET PO SCH ×3 (08:03→17:41)
[2020-05-23] MEDS: TRIAMCINOLONE ACETONIDE 0.1 % OINT 15GM TOP SCH ×2 (08:04→21:11)
[2020-05-23] MEDS: LAMOTRIGINE 100MG TABLET PO SCH (08:04)
[2020-05-23 11:56] LABS: BG BASE EXCESS 9.1 mmol/L (-2.0-2.0); BG CARBOXYHEMOGLOBIN 0.6 % (0.5-1.5); BG DEOXYHEMOGLOBIN 8.6 % (0.0-5.0); BG HCO3 ACT 35.7 mmol/L (22.0-26.0); BG METHEMOGLOBIN 0.2 % (0.0-1.5); BG OXYGEN SATURATION 91.3 % (92.0-98.5); BG OXYHEMOGLOBIN 90.6 % (94.0-97.0); BG PCO2 62.2 mmHg (35.0-45.0); BG PH 7.377 (7.350-7.450); BG PO2 61.1 mmHg (75.0-100.0); BG SAMPLE SITE RIGHT RADIAL; BG TOTAL HEMOGLOBIN 9.2 g/dL (12.0-18.0); BG VENT MODE VENT - AC
[2020-05-23] MEDS: MIDAZOLAM HCL 100 MG in SODIUM CHLORIDE 0.9% 100 ML IV PRN (13:01)
[2020-05-23] MEDS: FENTANYL CITRATE/PF 2,500 MCG in SODIUM CHLORIDE 0.9% 200 ML IV PRN (13:03)
[2020-05-23 17:07] LABS: PLATELET ESTIMATE DECREASED
[2020-05-24] VITALS (100 sets, daily range): BP systolic 54–142; BP diastolic 21–87
[2020-05-24] MEDS: METOCLOPRAMIDE HCL 10MG/2ML VIAL IV SCH ×4 (00:06→18:22)
[2020-05-24] MEDS: SUCRALFATE 1 G/10 ML UDC NG SCH ×4 (00:06→18:22)
[2020-05-24] MEDS: IPRATROPIUM/ALBUTEROL 0.5-3(2.5)MG/3ML NEB HHN SCH ×6 (00:21→20:03)
[2020-05-24] MEDS: PHENYLEPHRINE 100 MG in DEXT 5% WATER 240 ML IV PRN ×2 (00:55→12:17)
[2020-05-24 05:55] LABS: CHLORIDE 105 mEq/L (98-107)
[2020-05-24] MEDS: NOREPINEPHRINE 32 MG in DEXT 5% WATER 218 ML IV PRN (05:57)
[2020-05-24] MEDS: INSULIN LISPRO 100 UNITS/ML SUBCUT SCH ×4 (05:58→18:00)
[2020-05-24] MEDS: BLOOD SUGAR DIAGNOSTIC STRIP TEST SCH ×4 (05:58→18:18)
[2020-05-24 06:10] LABS: HEMATOCRIT. 22.4 % (42.0-52.0); HEMOGLOBIN. 7.2 g/dL (14.0-18.0); MEAN CORPUSCULAR HEMOGLOBIN 29.7 pg (28.0-32.0); MEAN CORPUSCULAR VOLUME 92.2 fL (80.0-94.0); MEAN PLATELET VOLUME 9.8 fl (7.4-10.4); PLATELET 72 x1000/uL (130-400); RED BLOOD CELL COUNT 2.43 mill/uL (4.7-6.1); RED CELL DISTRIBUTION WIDTH 15.7 % (11.6-14.6)
[2020-05-24 06:20] LABS: FOLIC ACID (FOLATE) SERUM 6.1 ng/mL (>5.38)
[2020-05-24] MEDS: VASOPRESSIN 20 UNIT in SODIUM CHLORIDE 0.9% 99 ML IV PRN ×2 (08:02→15:53)
[2020-05-24] MEDS: LAMOTRIGINE 100MG TABLET PO SCH (09:24)
[2020-05-24] MEDS: DESMOPRESSIN ACETATE 0.1MG TABLET PO SCH (09:24)
[2020-05-24] MEDS: ASCORBIC ACID 500 MG TABLET PO SCH ×2 (09:24→20:58)
[2020-05-24] MEDS: HYDROCORTISONE SOD SUCCINATE 100 MG/2 ML VIAL IV SCH ×3 (09:24→20:59)
[2020-05-24] MEDS: MIDODRINE HCL 5MG TABLET PO SCH ×3 (09:25→18:22)
[2020-05-24] MEDS: TRIAMCINOLONE ACETONIDE 0.1 % OINT 15GM TOP SCH ×2 (09:25→20:59)
[2020-05-24 10:10] LABS: BG BASE EXCESS 9.1 mmol/L (-2.0-2.0); BG CARBOXYHEMOGLOBIN 0.7 % (0.5-1.5); BG DEOXYHEMOGLOBIN 4.9 % (0.0-5.0); BG FRACTION INSPIRED OXYGEN 100; BG METHEMOGLOBIN 0.2 % (0.0-1.5); BG OXYGEN SATURATION 95.1 % (92.0-98.5); BG OXYHEMOGLOBIN 94.2 % (94.0-97.0); BG PCO2 64.4 mmHg (35.0-45.0); BG PH 7.365 (7.350-7.450); BG PO2 77.4 mmHg (75.0-100.0); BG SAMPLE SITE RIGHT RADIAL; BG TOTAL HEMOGLOBIN 9.3 g/dL (12.0-18.0); BG TOTAL RESPIRATORY RATE 28 b/min; BG VENT MODE VENT - AC
[2020-05-24] MEDS: FENTANYL CITRATE/PF 2,500 MCG in SODIUM CHLORIDE 0.9% 200 ML IV PRN (10:33)
[2020-05-24] MEDS: MIDAZOLAM HCL 100 MG in SODIUM CHLORIDE 0.9% 100 ML IV PRN (10:33)
[2020-05-24] MEDS ORDERED: IOHEXOL-300 100 ML BOTTLE ONE (13:10)
[2020-05-24 13:40] LABS: PLATELET ESTIMATE DECREASED
[2020-05-25] VITALS (100 sets, daily range): BP systolic 82–147; BP diastolic 37–89
[2020-05-25] MEDS: SUCRALFATE 1 G/10 ML UDC NG SCH ×5 (00:03→23:57)
[2020-05-25] MEDS: METOCLOPRAMIDE HCL 10MG/2ML VIAL IV SCH ×5 (00:03→23:57)
[2020-05-25] MEDS: BLOOD SUGAR DIAGNOSTIC STRIP TEST SCH ×4 (00:04→17:38)
[2020-05-25] MEDS: INSULIN LISPRO 100 UNITS/ML SUBCUT SCH ×4 (00:04→17:38)
[2020-05-25] MEDS: MIDAZOLAM HCL 100 MG in SODIUM CHLORIDE 0.9% 100 ML IV PRN ×2 (00:19→23:26)
[2020-05-25] MEDS: PHENYLEPHRINE 100 MG in DEXT 5% WATER 240 ML IV PRN ×3 (00:20→20:06)
[2020-05-25] MEDS: VASOPRESSIN 20 UNIT in SODIUM CHLORIDE 0.9% 99 ML IV PRN ×2 (00:21→10:08)
[2020-05-25] MEDS: IPRATROPIUM/ALBUTEROL 0.5-3(2.5)MG/3ML NEB HHN SCH ×5 (02:20→21:00)
[2020-05-25 05:26] LABS: CHLORIDE 101 mEq/L (98-107)
[2020-05-25] MEDS: HYDROCORTISONE SOD SUCCINATE 100 MG/2 ML VIAL IV SCH ×3 (05:57→21:38)
[2020-05-25] MEDS: FENTANYL CITRATE/PF 2,500 MCG in SODIUM CHLORIDE 0.9% 200 ML IV PRN ×2 (06:02→21:12)
[2020-05-25 06:22] LABS: BASOPHILS % 0.1 % (0.0-2.0); EOSINOPHILS % 0.1 % (0.0-5.0); HEMATOCRIT. 26.2 % (42.0-52.0); HEMOGLOBIN. 8.7 g/dL (14.0-18.0); LYMPHOCYTES % 7.6 % (20.0-50.0); MEAN CORPUSCULAR HEMOGLOBIN 30.5 pg (28.0-32.0); MEAN CORPUSCULAR VOLUME 92.3 fL (80.0-94.0); MEAN PLATELET VOLUME 9.9 fl (7.4-10.4); MONOCYTES % 3.2 % (2.0-8.0); PLATELET 69 x1000/uL (130-400); RED BLOOD CELL COUNT 2.84 mill/uL (4.7-6.1); RED CELL DISTRIBUTION WIDTH 15.5 % (11.6-14.6)
[2020-05-25] MEDS: ACETYLCYSTEINE 100MG/ML 10% VIAL 4ML INH SCH (08:02)
[2020-05-25] MEDS: MIDODRINE HCL 5MG TABLET PO SCH ×3 (09:14→17:38)
[2020-05-25] MEDS: ASCORBIC ACID 500 MG TABLET PO SCH ×2 (09:14→21:38)
[2020-05-25] MEDS: LAMOTRIGINE 100MG TABLET PO SCH (09:14)
[2020-05-25] MEDS: TRIAMCINOLONE ACETONIDE 0.1 % OINT 15GM TOP SCH ×2 (09:14→21:40)
[2020-05-25] MEDS: DESMOPRESSIN ACETATE 0.1MG TABLET PO SCH (09:15)
[2020-05-25 09:39] LABS: BG BASE EXCESS 10.7 mmol/L (-2.0-2.0); BG CARBOXYHEMOGLOBIN 0.9 % (0.5-1.5); BG FRACTION INSPIRED OXYGEN 100; BG HCO3 ACT 37.6 mmol/L (22.0-26.0); BG METHEMOGLOBIN 0.3 % (0.0-1.5); BG OXYHEMOGLOBIN 97.8 % (94.0-97.0); BG PCO2 66.6 mmHg (35.0-45.0); BG PH 7.369 (7.350-7.450); BG PO2 143.1 mmHg (75.0-100.0); BG SAMPLE SITE RIGHT RADIAL; BG TOTAL HEMOGLOBIN 8.4 g/dL (12.0-18.0); BG TOTAL RESPIRATORY RATE 32 b/min; BG VENT MODE VENT - AC
[2020-05-25] MEDS: CEFEPIME 1,000 MG in DEXTROSE 5% WATER 50 ML IV SCH ×2 (15:02→21:38)
[2020-05-25] MEDS ORDERED: MIDAZOLAM 100MG/100ML PMX 100 ML IV PRN (15:30)
[2020-05-26] VITALS (101 sets, daily range): BP systolic 77–137; BP diastolic 35–78
[2020-05-26] MEDS: IPRATROPIUM/ALBUTEROL 0.5-3(2.5)MG/3ML NEB HHN SCH ×6 (00:25→20:13)
[2020-05-26] MEDS: ACETYLCYSTEINE 100MG/ML 10% VIAL 4ML INH SCH (00:25)
[2020-05-26 06:00] LABS: CHLORIDE 107 mEq/L (98-107)
[2020-05-26] MEDS: INSULIN LISPRO 100 UNITS/ML SUBCUT SCH ×2 (06:00)
[2020-05-26] MEDS: SUCRALFATE 1 G/10 ML UDC NG SCH ×3 (06:06→17:24)
[2020-05-26] MEDS: METOCLOPRAMIDE HCL 10MG/2ML VIAL IV SCH ×3 (06:07→17:24)
[2020-05-26] MEDS: HYDROCORTISONE SOD SUCCINATE 100 MG/2 ML VIAL IV SCH ×3 (06:07→21:14)
[2020-05-26] MEDS: CEFEPIME 1,000 MG in DEXTROSE 5% WATER 50 ML IV SCH ×3 (06:07→21:14)
[2020-05-26] MEDS: BLOOD SUGAR DIAGNOSTIC STRIP TEST SCH ×2 (06:07)
[2020-05-26 06:08] LABS: HEMATOCRIT. 25.2 % (42.0-52.0); HEMOGLOBIN. 8.3 g/dL (14.0-18.0); MEAN CORPUSCULAR VOLUME 91.5 fL (80.0-94.0); MEAN PLATELET VOLUME 10.5 fl (7.4-10.4); PLATELET 70 x1000/uL (130-400); RED BLOOD CELL COUNT 2.75 mill/uL (4.7-6.1); RED CELL DISTRIBUTION WIDTH 15.5 % (11.6-14.6)
[2020-05-26 08:32] LABS: BG BASE EXCESS 11.9 mmol/L (-2.0-2.0); BG CARBOXYHEMOGLOBIN 0.3 % (0.5-1.5); BG DEOXYHEMOGLOBIN 2.6 % (0.0-5.0); BG FRACTION INSPIRED OXYGEN 90; BG HCO3 ACT 38.2 mmol/L (22.0-26.0); BG OXYGEN SATURATION 97.4 % (92.0-98.5); BG OXYHEMOGLOBIN 97.1 % (94.0-97.0); BG PCO2 62.8 mmHg (35.0-45.0); BG PH 7.402 (7.350-7.450); BG PO2 107.4 mmHg (75.0-100.0); BG SAMPLE SITE RIGHT RADIAL; BG TOTAL HEMOGLOBIN 8.2 g/dL (12.0-18.0); BG VENT MODE VENT - AC
[2020-05-26] MEDS ORDERED: POTASSIUM CHLORIDE INJ 40 MEQ in DEXT 5% WATER 250 ML IV SCH (09:00)
[2020-05-26] MEDS: DESMOPRESSIN ACETATE 0.1MG TABLET PO SCH ×2 (09:21→17:24)
[2020-05-26] MEDS: MIDODRINE HCL 5MG TABLET PO SCH ×3 (09:21→17:24)
[2020-05-26] MEDS: LAMOTRIGINE 100MG TABLET PO SCH (09:21)
[2020-05-26] MEDS: ASCORBIC ACID 500 MG TABLET PO SCH ×2 (09:21→21:14)
[2020-05-26] MEDS: TRIAMCINOLONE ACETONIDE 0.1 % OINT 15GM TOP SCH ×2 (09:22→21:14)
[2020-05-26] MEDS: MIDAZOLAM HCL 100 MG in SODIUM CHLORIDE 0.9% 100 ML IV PRN (11:36)
[2020-05-26 13:18] LABS: PLATELET ESTIMATE DECREASED
[2020-05-26] MEDS: FENTANYL CITRATE/PF 2,500 MCG in SODIUM CHLORIDE 0.9% 200 ML IV PRN (14:04)
[2020-05-26] MEDS: PHENYLEPHRINE 100 MG in DEXT 5% WATER 240 ML IV PRN (14:05)
[2020-05-27] VITALS (89 sets, daily range): BP systolic 72–122; BP diastolic 36–70
[2020-05-27] MEDS: IPRATROPIUM/ALBUTEROL 0.5-3(2.5)MG/3ML NEB HHN SCH ×7 (00:11→23:53)
[2020-05-27] MEDS: METOCLOPRAMIDE HCL 10MG/2ML VIAL IV SCH ×5 (00:49→23:07)
[2020-05-27] MEDS: SUCRALFATE 1 G/10 ML UDC NG SCH ×5 (00:49→23:07)
[2020-05-27] MEDS: MIDAZOLAM HCL 100 MG in SODIUM CHLORIDE 0.9% 100 ML IV PRN ×2 (02:37→21:00)
[2020-05-27] MEDS: FENTANYL CITRATE/PF 2,500 MCG in SODIUM CHLORIDE 0.9% 200 ML IV PRN ×2 (04:17→19:42)
[2020-05-27] MEDS: CEFEPIME 1,000 MG in DEXTROSE 5% WATER 50 ML IV SCH ×3 (05:01→21:12)
[2020-05-27 06:42] LABS: BASOPHILS % 0.1 % (0.0-2.0); EOSINOPHILS % 0.1 % (0.0-5.0); HEMATOCRIT. 23.5 % (42.0-52.0); HEMOGLOBIN. 7.8 g/dL (14.0-18.0); LYMPHOCYTES % 10.3 % (20.0-50.0); MEAN CORPUSCULAR HEMOGLOBIN 30.8 pg (28.0-32.0); MEAN CORPUSCULAR VOLUME 92.2 fL (80.0-94.0); MEAN PLATELET VOLUME 10.8 fl (7.4-10.4); NEUTROPHILS % 86.5 % (40.0-76.0); PLATELET 67 x1000/uL (130-400); RED BLOOD CELL COUNT 2.55 mill/uL (4.7-6.1); RED CELL DISTRIBUTION WIDTH 15.7 % (11.6-14.6)
[2020-05-27 06:49] LABS: CHLORIDE 111 mEq/L (98-107)
[2020-05-27 06:55] LABS: PHOSPHORUS 2.2 mg/dL (2.5-4.9)
[2020-05-27] MEDS: ASCORBIC ACID 500 MG TABLET PO SCH (09:09)
[2020-05-27] MEDS: DESMOPRESSIN ACETATE 0.1MG TABLET PO SCH ×2 (09:10→17:00)
[2020-05-27] MEDS: TRIAMCINOLONE ACETONIDE 0.1 % OINT 15GM TOP SCH ×2 (09:10→21:09)
[2020-05-27] MEDS: LAMOTRIGINE 100MG TABLET PO SCH (09:20)
[2020-05-27] MEDS: HYDROCORTISONE SOD SUCCINATE 100 MG/2 ML VIAL IV SCH ×2 (09:20→21:17)
[2020-05-27] MEDS: MIDODRINE HCL 5MG TABLET PO SCH ×3 (09:21→18:07)
[2020-05-27] MEDS ORDERED: POTASSIUM PHOS,M-BASIC-D-BASIC 10 MMOL in DEXT 5% WATER 246.6667 ML IV NR (10:15)
[2020-05-27] MEDS: DEXTROSE 5% WATER 1,000 ML IV SCH (13:32)
[2020-05-27] MEDS: ACETYLCYSTEINE 100MG/ML 10% VIAL 4ML INH SCH (19:47)
[2020-05-28] VITALS (91 sets, daily range): BP systolic 66–154; BP diastolic 31–88
[2020-05-28] MEDS: IPRATROPIUM/ALBUTEROL 0.5-3(2.5)MG/3ML NEB HHN SCH ×5 (04:46→21:01)
[2020-05-28] MEDS: SUCRALFATE 1 G/10 ML UDC NG SCH ×4 (06:14→23:47)
[2020-05-28] MEDS: METOCLOPRAMIDE HCL 10MG/2ML VIAL IV SCH ×4 (06:14→23:47)
[2020-05-28] MEDS: CEFEPIME 1,000 MG in DEXTROSE 5% WATER 50 ML IV SCH ×3 (06:17→22:00)
[2020-05-28] MEDS: DEXTROSE 5% WATER 1,000 ML IV SCH (06:51)
[2020-05-28 07:20] LABS: CHLORIDE 109 mEq/L (98-107)
[2020-05-28] MEDS: MIDAZOLAM HCL 100 MG in SODIUM CHLORIDE 0.9% 100 ML IV PRN ×2 (07:22→18:45)
[2020-05-28 07:28] LABS: HEMATOCRIT. 21.9 % (42.0-52.0); HEMOGLOBIN. 7.1 g/dL (14.0-18.0); MEAN CORPUSCULAR HEMOGLOBIN 30.2 pg (28.0-32.0); MEAN CORPUSCULAR VOLUME 92.6 fL (80.0-94.0); MEAN PLATELET VOLUME 10.4 fl (7.4-10.4); PLATELET 65 x1000/uL (130-400); RED BLOOD CELL COUNT 2.36 mill/uL (4.7-6.1); RED CELL DISTRIBUTION WIDTH 15.5 % (11.6-14.6)
[2020-05-28 07:29] LABS: PHOSPHORUS 2.7 mg/dL (2.5-4.9)
[2020-05-28] MEDS: ACETYLCYSTEINE 100MG/ML 10% VIAL 4ML INH SCH ×2 (07:59→16:01)
[2020-05-28] MEDS: MIDODRINE HCL 5MG TABLET PO SCH ×3 (08:22→17:55)
[2020-05-28] MEDS: LAMOTRIGINE 100MG TABLET PO SCH (08:22)
[2020-05-28] MEDS: HYDROCORTISONE SOD SUCCINATE 100 MG/2 ML VIAL IV SCH ×2 (08:22→21:00)
[2020-05-28] MEDS: TRIAMCINOLONE ACETONIDE 0.1 % OINT 15GM TOP SCH ×2 (09:00→21:00)
[2020-05-28] MEDS: DESMOPRESSIN ACETATE 0.1MG TABLET PO SCH ×2 (10:00→17:57)
[2020-05-28] MEDS: FENTANYL CITRATE/PF 2,500 MCG in SODIUM CHLORIDE 0.9% 200 ML IV PRN (12:01)
[2020-05-28 23:14] LABS: PLATELET ESTIMATE DECREASED
[2020-05-29] VITALS (98 sets, daily range): BP systolic 77–150; BP diastolic 38–89
[2020-05-29] MEDS: IPRATROPIUM/ALBUTEROL 0.5-3(2.5)MG/3ML NEB HHN SCH ×5 (00:12→20:11)
[2020-05-29] MEDS: ACETYLCYSTEINE 100MG/ML 10% VIAL 4ML INH SCH ×4 (00:12→20:11)
[2020-05-29] MEDS: PHENYLEPHRINE 100 MG in DEXT 5% WATER 240 ML IV PRN ×2 (02:49→22:06)
[2020-05-29] MEDS: FENTANYL CITRATE/PF 2,500 MCG in SODIUM CHLORIDE 0.9% 200 ML IV PRN ×2 (03:04→17:11)
[2020-05-29] MEDS: DEXTROSE 5% WATER 1,000 ML IV SCH ×2 (03:30→06:15)
[2020-05-29] MEDS: MIDAZOLAM HCL 100 MG in SODIUM CHLORIDE 0.9% 100 ML IV PRN ×2 (04:39→15:32)
[2020-05-29] MEDS: DESMOPRESSIN ACETATE 0.1MG TABLET PO SCH ×2 (09:00→17:11)
[2020-05-29] MEDS: MIDODRINE HCL 5MG TABLET PO SCH ×3 (09:00→17:00)
[2020-05-29] MEDS: LAMOTRIGINE 100MG TABLET PO SCH (09:00)
[2020-05-29] MEDS: HYDROCORTISONE SOD SUCCINATE 100 MG/2 ML VIAL IV SCH (09:01)
[2020-05-29 11:00] LABS: BG BASE EXCESS 11.4 mmol/L (-2.0-2.0); BG CARBOXYHEMOGLOBIN 0.6 % (0.5-1.5); BG DEOXYHEMOGLOBIN 4.3 % (0.0-5.0); BG FRACTION INSPIRED OXYGEN 100; BG HCO3 ACT 38.7 mmol/L (22.0-26.0); BG METHEMOGLOBIN 0.3 % (0.0-1.5); BG OXYGEN SATURATION 95.7 % (92.0-98.5); BG OXYHEMOGLOBIN 94.8 % (94.0-97.0); BG PCO2 71.6 mmHg (35.0-45.0); BG PH 7.351 (7.350-7.450); BG PO2 83.3 mmHg (75.0-100.0); BG SAMPLE SITE RIGHT RADIAL; BG TOTAL HEMOGLOBIN 8.6 g/dL (12.0-18.0); BG VENT MODE VENT - AC
[2020-05-29] MEDS: CEFEPIME 1,000 MG in DEXTROSE 5% WATER 50 ML IV SCH ×2 (17:05→22:19)
[2020-05-29] MEDS: METOCLOPRAMIDE HCL 10MG/2ML VIAL IV SCH ×2 (17:05→23:34)
[2020-05-29] MEDS: SUCRALFATE 1 G/10 ML UDC NG SCH ×2 (17:06→23:34)
[2020-05-29] MEDS: DOCUSATE SODIUM SUGAR FREE 100MG/10ML UDC NG SCH (17:11)
[2020-05-29] MEDS ORDERED: MIDAZOLAM 100MG/100ML PMX 100 ML IV PRN (20:00)
[2020-05-30] VITALS (147 sets, daily range): BP systolic 72–156; BP diastolic 31–82
[2020-05-30] MEDS: IPRATROPIUM/ALBUTEROL 0.5-3(2.5)MG/3ML NEB HHN SCH ×6 (01:17→20:20)
[2020-05-30] MEDS: MIDAZOLAM HCL 100 MG in SODIUM CHLORIDE 0.9% 100 ML IV PRN ×3 (05:05→23:30)
[2020-05-30] MEDS: SUCRALFATE 1 G/10 ML UDC NG SCH ×4 (05:53→23:29)
[2020-05-30] MEDS: METOCLOPRAMIDE HCL 10MG/2ML VIAL IV SCH ×4 (06:37→23:29)
[2020-05-30] MEDS: CEFEPIME 1,000 MG in DEXTROSE 5% WATER 50 ML IV SCH ×3 (06:42→23:29)
[2020-05-30] MEDS: ACETYLCYSTEINE 100MG/ML 10% VIAL 4ML INH SCH (08:16)
[2020-05-30 08:27] LABS: BG BASE EXCESS 6.6 mmol/L (-2.0-2.0); BG CARBOXYHEMOGLOBIN 1.8 % (0.5-1.5); BG DEOXYHEMOGLOBIN 12.3 % (0.0-5.0); BG HCO3 ACT 37.9 mmol/L (22.0-26.0); BG OXYGEN SATURATION 87.5 % (92.0-98.5); BG OXYHEMOGLOBIN 85.9 % (94.0-97.0); BG PCO2 95.7 mmHg (35.0-45.0); BG PH 7.216 (7.350-7.450); BG PO2 55.7 mmHg (75.0-100.0); BG TOTAL HEMOGLOBIN 13.5 g/dL (12.0-18.0)
[2020-05-30] MEDS: FENTANYL CITRATE/PF 2,500 MCG in SODIUM CHLORIDE 0.9% 200 ML IV PRN (08:37)
[2020-05-30] MEDS ORDERED: HYDROCORTISONE SOD SUCCINATE 100 MG/2 ML VIAL IV SCH ×2 (09:00→21:00)
[2020-05-30] MEDS: DOCUSATE SODIUM SUGAR FREE 100MG/10ML UDC NG SCH ×2 (10:53→17:00)
[2020-05-30] MEDS: LAMOTRIGINE 100MG TABLET PO SCH (10:53)
[2020-05-30] MEDS: DESMOPRESSIN ACETATE 0.1MG TABLET PO SCH ×2 (10:54→17:00)
[2020-05-30 11:27] LABS: HEMOGLOBIN. 13.2 g/dL (14.0-18.0); MEAN CORPUSCULAR HEMOGLOBIN 29.3 pg (28.0-32.0); MEAN PLATELET VOLUME 10.4 fl (7.4-10.4); PLATELET 78 x1000/uL (130-400); RED BLOOD CELL COUNT 4.49 mill/uL (4.7-6.1); RED CELL DISTRIBUTION WIDTH 15.5 % (11.6-14.6)
[2020-05-30 11:37] LABS: INR 1.1; PROTHROMBIN TIME 12.2 sec (9.6-11.0)
[2020-05-30 11:50] LABS: CHLORIDE 102 mEq/L (98-107)
[2020-05-30] MEDS ORDERED: ALBUMIN HUMAN 12.5GM/50ML (25%) IV NR (12:00)
[2020-05-30] MEDS: NOREPINEPHRINE 32 MG in DEXT 5% WATER 218 ML IV PRN (12:26)
[2020-05-30 12:39] LABS: PLATELET ESTIMATE DECREASED
[2020-05-30] MEDS: PHENYLEPHRINE 100 MG in DEXT 5% WATER 240 ML IV PRN (13:24)
[2020-05-30] MEDS ORDERED: POTASSIUM CHLORIDE 20MEQ/PACKET PO NR (14:15)
[2020-05-31] VITALS (100 sets, daily range): BP systolic 58–174; BP diastolic 30–108
[2020-05-31] MEDS: IPRATROPIUM/ALBUTEROL 0.5-3(2.5)MG/3ML NEB HHN SCH ×6 (01:17→21:43)
[2020-05-31] MEDS: PHENYLEPHRINE 100 MG in DEXT 5% WATER 240 ML IV PRN ×2 (04:06→15:24)
[2020-05-31] MEDS: FENTANYL CITRATE/PF 2,500 MCG in SODIUM CHLORIDE 0.9% 200 ML IV PRN ×2 (04:08→21:53)
[2020-05-31] MEDS: METOCLOPRAMIDE HCL 10MG/2ML VIAL IV SCH ×3 (05:09→18:29)
[2020-05-31] MEDS: SUCRALFATE 1 G/10 ML UDC NG SCH ×2 (05:10→12:00)
[2020-05-31 06:22] LABS: CHLORIDE 101 mEq/L (98-107)
[2020-05-31 06:32] LABS: BASOPHILS % 0.2 % (0.0-2.0); EOSINOPHILS % 12.8 % (0.0-5.0); HEMATOCRIT. 33.5 % (42.0-52.0); HEMOGLOBIN. 11.2 g/dL (14.0-18.0); MEAN CORPUSCULAR HEMOGLOBIN 29.8 pg (28.0-32.0); MEAN CORPUSCULAR VOLUME 89.3 fL (80.0-94.0); MEAN PLATELET VOLUME 9.9 fl (7.4-10.4); MONOCYTES % 11.4 % (2.0-8.0); NEUTROPHILS % 45.6 % (40.0-76.0); PLATELET 80 x1000/uL (130-400); RED BLOOD CELL COUNT 3.75 mill/uL (4.7-6.1); RED CELL DISTRIBUTION WIDTH 15.7 % (11.6-14.6)
[2020-05-31] MEDS: LAMOTRIGINE 100MG TABLET PO SCH (09:00)
[2020-05-31] MEDS: DESMOPRESSIN ACETATE 0.1MG TABLET PO SCH ×2 (09:00→17:00)
[2020-05-31] MEDS: DOCUSATE SODIUM SUGAR FREE 100MG/10ML UDC NG SCH ×2 (09:00→12:44)
[2020-05-31 09:08] LABS: BG BASE EXCESS 9.9 mmol/L (-2.0-2.0); BG CARBOXYHEMOGLOBIN 1.3 % (0.5-1.5); BG DEOXYHEMOGLOBIN 9.3 % (0.0-5.0); BG FRACTION INSPIRED OXYGEN 100; BG HCO3 ACT 40.7 mmol/L (22.0-26.0); BG METHEMOGLOBIN 0.3 % (0.0-1.5); BG OXYGEN SATURATION 90.5 % (92.0-98.5); BG OXYHEMOGLOBIN 89.1 % (94.0-97.0); BG PCO2 97.3 mmHg (35.0-45.0); BG PH 7.239 (7.350-7.450); BG PO2 61.6 mmHg (75.0-100.0); BG SAMPLE SITE RIGHT RADIAL; BG TOTAL HEMOGLOBIN 11.9 g/dL (12.0-18.0); BG VENT MODE VENT - AC
[2020-05-31] MEDS: MIDAZOLAM HCL 100 MG in SODIUM CHLORIDE 0.9% 100 ML IV PRN ×2 (10:05→19:33)
[2020-05-31] MEDS ORDERED: TERBUTALINE SULFATE 1MG/ML VIAL SUBCUT NR (11:30)
[2020-05-31] MEDS: PROPOFOL 10MG/ML 100ML 100 ML IV PRN ×2 (14:43→21:52)
[2020-05-31 15:06] LABS: BG BASE EXCESS 7.2 mmol/L (-2.0-2.0); BG CARBOXYHEMOGLOBIN 2.2 % (0.5-1.5); BG DEOXYHEMOGLOBIN 21.6 % (0.0-5.0); BG FRACTION INSPIRED OXYGEN 100; BG HCO3 ACT 40.8 mmol/L (22.0-26.0); BG METHEMOGLOBIN 0.3 % (0.0-1.5); BG OXYGEN SATURATION 77.8 % (92.0-98.5); BG OXYHEMOGLOBIN 75.9 % (94.0-97.0); BG PCO2 123.7 mmHg (35.0-45.0); BG PH 7.136 (7.350-7.450); BG PO2 45.5 mmHg (75.0-100.0); BG SAMPLE SITE RIGHT RADIAL; BG TOTAL HEMOGLOBIN 13.5 g/dL (12.0-18.0); BG VENT MODE VENT - P/C
[2020-05-31] MEDS ORDERED: SODIUM BICARBONATE 8.4% 1 MEQ/ML 50ML SYR IV NR (17:00)
[2020-05-31] MEDS: HYDROCORTISONE SOD SUCCINATE 100 MG/2 ML VIAL IV SCH (21:06)
[2020-05-31] MEDS: NOREPINEPHRINE 32 MG in DEXT 5% WATER 218 ML IV PRN (21:49)
[2020-05-31 23:31] LABS: BG CARBOXYHEMOGLOBIN 1.6 % (0.5-1.5); BG DEOXYHEMOGLOBIN 11.2 % (0.0-5.0); BG FRACTION INSPIRED OXYGEN 100; BG HCO3 ACT 34.9 mmol/L (22.0-26.0); BG METHEMOGLOBIN 0.1 % (0.0-1.5); BG OXYGEN SATURATION 88.6 % (92.0-98.5); BG OXYHEMOGLOBIN 87.1 % (94.0-97.0); BG PCO2 146.5 mmHg (35.0-45.0); BG PH 6.995 (7.350-7.450); BG PO2 59.7 mmHg (75.0-100.0); BG SAMPLE SITE RIGHT RADIAL; BG TOTAL HEMOGLOBIN 14.2 g/dL (12.0-18.0); BG VENT MODE VENT - AC
[2020-06-01] VITALS (94 sets, daily range): BP systolic 39–148; BP diastolic 23–96
[2020-06-01] MEDS: METOCLOPRAMIDE HCL 10MG/2ML VIAL IV SCH ×5 (00:30→23:58)
[2020-06-01] MEDS: IPRATROPIUM/ALBUTEROL 0.5-3(2.5)MG/3ML NEB HHN SCH ×6 (00:48→20:36)
[2020-06-01] MEDS: MIDAZOLAM HCL 100 MG in SODIUM CHLORIDE 0.9% 100 ML IV PRN ×3 (02:47→22:08)
[2020-06-01] MEDS: PHENYLEPHRINE 100 MG in DEXT 5% WATER 240 ML IV PRN (02:48)
[2020-06-01 05:45] LABS: CHLORIDE 100 mEq/L (98-107)
[2020-06-01] MEDS: HYDROCORTISONE SOD SUCCINATE 100 MG/2 ML VIAL IV SCH ×3 (06:16→22:06)
[2020-06-01 06:18] LABS: HEMATOCRIT. 39.6 % (42.0-52.0); MEAN CORPUSCULAR HEMOGLOBIN 30.1 pg (28.0-32.0); MEAN CORPUSCULAR VOLUME 91.9 fL (80.0-94.0); MEAN PLATELET VOLUME 10.9 fl (7.4-10.4); PLATELET 55 x1000/uL (130-400); RED BLOOD CELL COUNT 4.31 mill/uL (4.7-6.1); RED CELL DISTRIBUTION WIDTH 15.4 % (11.6-14.6)
[2020-06-01] MEDS: FENTANYL CITRATE/PF 2,500 MCG in SODIUM CHLORIDE 0.9% 200 ML IV PRN ×3 (07:21→22:10)
[2020-06-01] MEDS: PROPOFOL 10MG/ML 100ML 100 ML IV PRN (07:24)
[2020-06-01] MEDS: LAMOTRIGINE 100MG TABLET PO SCH (09:00)
[2020-06-01] MEDS: DOCUSATE SODIUM SUGAR FREE 100MG/10ML UDC NG SCH ×2 (09:00→17:00)
[2020-06-01 09:16] LABS: BG BASE EXCESS 2.2 mmol/L (-2.0-2.0); BG DEOXYHEMOGLOBIN 4.7 % (0.0-5.0); BG FRACTION INSPIRED OXYGEN 100; BG HCO3 ACT 35.6 mmol/L (22.0-26.0); BG METHEMOGLOBIN 0.3 % (0.0-1.5); BG OXYGEN SATURATION 95.2 % (92.0-98.5); BG PCO2 114.8 mmHg (35.0-45.0); BG PH 7.109 (7.350-7.450); BG PO2 75.2 mmHg (75.0-100.0); BG SAMPLE SITE RIGHT RADIAL; BG TOTAL HEMOGLOBIN 13.9 g/dL (12.0-18.0); BG VENT MODE VENT - AC
[2020-06-01] MEDS: NOREPINEPHRINE 32 MG in DEXT 5% WATER 218 ML IV PRN ×2 (09:57→22:07)
[2020-06-01 13:33] LABS: NUCLEATED RED BLOOD CELLS 1 /100 WBC; PLATELET ESTIMATE DECREASED
[2020-06-01 14:15] LABS: BG BASE EXCESS 0.2 mmol/L (-2.0-2.0); BG DEOXYHEMOGLOBIN 6.1 % (0.0-5.0); BG FRACTION INSPIRED OXYGEN 100; BG METHEMOGLOBIN 0.2 % (0.0-1.5); BG OXYGEN SATURATION 93.8 % (92.0-98.5); BG OXYHEMOGLOBIN 92.7 % (94.0-97.0); BG PCO2 105.4 mmHg (35.0-45.0); BG PH 7.113 (7.350-7.450); BG PO2 69.4 mmHg (75.0-100.0); BG SAMPLE SITE RIGHT RADIAL; BG TOTAL HEMOGLOBIN 13.8 g/dL (12.0-18.0); BG TOTAL RESPIRATORY RATE 40 b/min; BG VENT MODE VENT - AC
[2020-06-01] MEDS ORDERED: PROPOFOL 10MG/ML 100ML 100 ML IV PRN (18:00)
[2020-06-02] VITALS (71 sets, daily range): BP systolic 29–123; BP diastolic 15–78
[2020-06-02] MEDS: IPRATROPIUM/ALBUTEROL 0.5-3(2.5)MG/3ML NEB HHN SCH ×4 (00:29→12:00)
[2020-06-02] MEDS: PHENYLEPHRINE 100 MG in DEXT 5% WATER 240 ML IV PRN (01:17)
[2020-06-02 06:01] LABS: CHLORIDE 97 mEq/L (98-107)
[2020-06-02 06:06] LABS: HEMOGLOBIN. 12.3 g/dL (14.0-18.0); MEAN CORPUSCULAR HEMOGLOBIN 29.7 pg (28.0-32.0); MEAN PLATELET VOLUME 10.7 fl (7.4-10.4); RED BLOOD CELL COUNT 4.13 mill/uL (4.7-6.1); RED CELL DISTRIBUTION WIDTH 15.3 % (11.6-14.6)
[2020-06-02] MEDS: HYDROCORTISONE SOD SUCCINATE 100 MG/2 ML VIAL IV SCH ×2 (06:22→15:51)
[2020-06-02] MEDS: METOCLOPRAMIDE HCL 10MG/2ML VIAL IV SCH ×3 (06:23→18:29)
[2020-06-02] MEDS: FENTANYL CITRATE/PF 2,500 MCG in SODIUM CHLORIDE 0.9% 200 ML IV PRN ×2 (07:49→16:02)
[2020-06-02] MEDS: MIDAZOLAM HCL 100 MG in SODIUM CHLORIDE 0.9% 100 ML IV PRN ×2 (08:21→16:51)
[2020-06-02] MEDS ORDERED: DESMOPRESSIN ACETATE 0.1MG TABLET PO SCH (09:00)
[2020-06-02] MEDS: DOCUSATE SODIUM SUGAR FREE 100MG/10ML UDC NG SCH ×2 (09:09→18:30)
[2020-06-02] MEDS: LAMOTRIGINE 100MG TABLET PO SCH (09:09)
[2020-06-02] MEDS: NOREPINEPHRINE 32 MG in DEXT 5% WATER 218 ML IV PRN ×2 (09:29→18:30)
[2020-06-02] MEDS ORDERED: ACETAMINOPHEN 650MG/20.3ML UDC PO PRN (09:30)
[2020-06-02 09:48] LABS: BG BASE EXCESS 2.5 mmol/L (-2.0-2.0); BG CARBOXYHEMOGLOBIN 0.8 % (0.5-1.5); BG FRACTION INSPIRED OXYGEN 100; BG HCO3 ACT 33.5 mmol/L (22.0-26.0); BG METHEMOGLOBIN 0.3 % (0.0-1.5); BG OXYGEN SATURATION 85.8 % (92.0-98.5); BG OXYHEMOGLOBIN 84.9 % (94.0-97.0); BG PCO2 91.6 mmHg (35.0-45.0); BG PH 7.181 (7.350-7.450); BG PO2 53.1 mmHg (75.0-100.0); BG SAMPLE SITE RIGHT RADIAL; BG TOTAL HEMOGLOBIN 12.8 g/dL (12.0-18.0); BG VENT MODE VENT - AC
[2020-06-02 12:04] LABS: PLATELET ESTIMATE MARKEDLY DECREASED
[2020-06-02 12:05] LABS: PLATELET 44 x1000/uL (130-400)
[2020-06-02] MEDS ORDERED: VASOPRESSIN 20 UNIT in SODIUM CHLORIDE 0.9% 99 ML IV PRN (12:45)
[2020-06-02] MEDS ORDERED: MEROPENEM 1,000 MG in SODIUM CHLORIDE 0.9% 100 ML IV SCH (14:00)
[2020-06-02] MEDS ORDERED: VANCOMYCIN 1 G PREMIX 200 ML IV SCH (17:00)
[2020-06-02] MEDS ORDERED: MIDAZOLAM 100MG/100ML PMX 100 ML IV PRN (17:30)
[2020-06-02 18:12] LABS: BG BASE EXCESS -2.9 mmol/L (-2.0-2.0); BG CARBOXYHEMOGLOBIN 0.6 % (0.5-1.5); BG DEOXYHEMOGLOBIN 26.5 % (0.0-5.0); BG FRACTION INSPIRED OXYGEN 100; BG HCO3 ACT 30.4 mmol/L (22.0-26.0); BG METHEMOGLOBIN 0.3 % (0.0-1.5); BG OXYGEN SATURATION 73.3 % (92.0-98.5); BG OXYHEMOGLOBIN 72.6 % (94.0-97.0); BG PCO2 111.1 mmHg (35.0-45.0); BG PH 7.055 (7.350-7.450); BG SAMPLE SITE RIGHT RADIAL; BG TOTAL HEMOGLOBIN 13.2 g/dL (12.0-18.0); BG VENT MODE VENT - AC
[2020-06-02] MEDS ORDERED: MIDAZOLAM HCL 100 MG in SODIUM CHLORIDE 0.9% 100 ML IV PRN (19:00)
[2020-06-02] MEDS ORDERED: FENTANYL CITRATE/PF 2,500 MCG in SODIUM CHLORIDE 0.9% 200 ML IV PRN (19:00)
[2020-06-02] MEDS ORDERED: EPINEPHRINE 10 MG in SODIUM CHLORIDE 0.9% 240 ML IV PRN (19:15)
== END 2020-06-02 22:15 | disposition expired | DRG 720 ==
LOC: ER 11:18 → EDBD 11:18 → 3WST 15:02 → EDBEDREQSVC 15:11 → EDBEDREQ 15:11 → ENRESERV 20:57 → 3WST 04-24 15:20 → 5EST 05-02 01:00
PROVIDERS: ADMIT Internal Medicine; ATTEND Internal Medicine
PROC: 05HY33Z Insertion of Infusion Device into Upper Vein, Percutaneous Approach (ICD-10-PCS; 2020-04-26)
PROC: B54MZZA Ultrasonography of Right Upper Extremity Veins, Guidance (ICD-10-PCS; 2020-04-26)
PROC: 05HY33Z Insertion of Infusion Device into Upper Vein, Percutaneous Approach (ICD-10-PCS; 2020-05-03)
PROC: B54MZZA Ultrasonography of Right Upper Extremity Veins, Guidance (ICD-10-PCS; 2020-05-03)
PROC: 0DP6XUZ Removal of Feeding Device from Stomach, External Approach (ICD-10-PCS; 2020-05-04)
PROC: 0DH68UZ Insertion of Feeding Device into Stomach, Via Natural or Artificial Opening Endoscopic (ICD-10-PCS; 2020-05-04)
PROC: 0BH17EZ Insertion of Endotracheal Airway into Trachea, Via Natural or Artificial Opening (ICD-10-PCS; 2020-05-08)
PROC: 5A1955Z Respiratory Ventilation, Greater than 96 Consecutive Hours (ICD-10-PCS; 2020-05-08)
PROC: 05HY33Z Insertion of Infusion Device into Upper Vein, Percutaneous Approach (ICD-10-PCS; 2020-05-16)
PROC: B54MZZA Ultrasonography of Right Upper Extremity Veins, Guidance (ICD-10-PCS; 2020-05-16)
PROC: 30233N1 Transfusion of Nonautologous Red Blood Cells into Peripheral Vein, Percutaneous Approach (ICD-10-PCS; 2020-05-30)
PROC: 30233R1 Transfusion of Nonautologous Platelets into Peripheral Vein, Percutaneous Approach (ICD-10-PCS; 2020-05-31)
PROC: 5A12012 Performance of Cardiac Output, Single, Manual (ICD-10-PCS; principal; 2020-06-02)
DX: A41.9 Sepsis, unspecified organism (principal); R65.21 Severe sepsis with septic shock; N39.0 Urinary tract infection, site not specified; E86.0 Dehydration; E87.0 Hyperosmolality and hypernatremia; F79 Unspecified intellectual disabilities; G91.9 Hydrocephalus, unspecified; B00.1 Herpesviral vesicular dermatitis; G40.909 Epilepsy, unspecified, not intractable, without status epilepticus; G80.9 Cerebral palsy, unspecified; K56.41 Fecal impaction; E43 Unspecified severe protein-calorie malnutrition; D72.810 Lymphocytopenia; R13.10 Dysphagia, unspecified; J98.2 Interstitial emphysema; N12 Tubulo-interstitial nephritis, not specified as acute or chronic; D64.9 Anemia, unspecified; A41.01 Sepsis due to Methicillin susceptible Staphylococcus aureus; E87.6 Hypokalemia; E87.1 Hypo-osmolality and hyponatremia; D69.6 Thrombocytopenia, unspecified; A41.81 Sepsis due to Enterococcus; E86.1 Hypovolemia; K44.9 Diaphragmatic hernia without obstruction or gangrene; K94.23 Gastrostomy malfunction; K20.91 Esophagitis, unspecified with bleeding; B86 Scabies; D72.10 Eosinophilia, unspecified; E83.39 Other disorders of phosphorus metabolism; E87.5 Hyperkalemia; G93.41 Metabolic encephalopathy; J15.9 Unspecified bacterial pneumonia; J69.0 Pneumonitis due to inhalation of food and vomit; J80 Acute respiratory distress syndrome; J90 Pleural effusion, not elsewhere classified; R50.81 Fever presenting with conditions classified elsewhere; R57.1 Hypovolemic shock; Z20.822 Contact with and (suspected) exposure to COVID-19; L89.893 Pressure ulcer of other site, stage 3; L89.224 Pressure ulcer of left hip, stage 4; Z74.01 Bed confinement status; Z68.1 Body mass index [BMI] 19.9 or less, adult; Q04.0 Congenital malformations of corpus callosum; Z78.1 Physical restraint status; Z99.11 Dependence on respirator [ventilator] status
CPT/HCPCS: 31500; 36415; 36600; 71045; 71260; 73702; 74018; 74177; 76604; 76937; 80048; 80053; 80061; 80184; 80202; 80305; 80320; 81003; 82040; 82375; 82533; 82550; 82553; 82607; 82746; 82805; 82962; 83036; 83605; 83735; 83880; 83930; 83935; 84100; 84132; 84134; 84145; 84295; 84439; 84443; 84478; 84484; 85014; 85018; 85025; 85027; 85049; 85362; 85379; 85384; 86376; 86850; 86900; 86920; 87070; 87077; 87186; 87426; 92950; 93005; 93970; 94002; 94003; 94640; 99291; A6261; C1725; C1892; C1893; C9113; J0282; J0692; J1200; J1644; J1720; J1815; J1953; J1956; J2185; J2248; J2250; J2370; J2405; J2543; J2704; J2765; J3010; J3370; J3475; J3480; J3490; J7030; J7040; J7042; J7050; J7060; J7070; J7608; P9016; P9034; P9047; Q9967; A4315; G0480